=== PATIENT | female | born 1935 | race Caucasian/White ===

== ENCOUNTER 2016-07-13 16:26 | Emergency (ER) | payer MEDICARE, BC ==
[~2016-07-13] VITALS: Ht 152.4 cm; Wt 95.8 kg
[~2016-07-13 16:26] MED LIST: ACIP20TA19 PO; ADVA100A INH; ASPI325T PO; CALC600T34 PO; ESZO3 PO; GLUCCAP13 PO; HYOS1TAB10 PO; IPRA0.02 INH; IPRA18I INH; LEVA750T9 PO; LYSI500C2 PO; MMW SS; NYSTPOW30 XX; OMEGCAP2 PO; OXYC5 PO; PRAV40TA PO; PRED5SOL PO; PROT40TA PO; SERT-129 PO; TIMO0.5S4 OP; [UNRECOGNIZED DRUG - CODE] PO; [UNRECOGNIZED DRUG - OTHER]; [UNRECOGNIZED DRUG - OTHER] PO
[2016-07-13 16:37] VITALS: BP 143/98; PULSE 82; RESP 16; TEMP 98.5; O2SAT 94
[2016-07-13] MEDS ORDERED: TETANUS/DIPHTHERIA TOXOID ADULT 0.5 ML VIAL IM ONE (17:30)
[2016-07-13] MEDS ORDERED: VEDO1INJ IV (17:37)
[2016-07-13] MEDS ORDERED: PANT40TA3 PO (17:37)
[2016-07-13] MEDS ORDERED: TIMO0.2517 EACH EYE (17:38)
[2016-07-13] MEDS ORDERED: FOLI1TAB4 PO (17:38)
[2016-07-13] MEDS ORDERED: ESZO3TAB4 PO (17:38)
[2016-07-13] MEDS ORDERED: NYST15T TOPICAL (17:38)
[2016-07-13] MEDS ORDERED: SERT25TA83 PO (17:38)
[2016-07-13] MEDS ORDERED: HYDR-3533 PO (17:38)
[2016-07-13] MEDS ORDERED: HYOS0.37 PO (17:38)
[2016-07-13] MEDS ORDERED: LIVA1TAB PO (17:38)
[2016-07-13] MEDS ORDERED: TREX5TAB PO (17:38)
[2016-07-13] MEDS ORDERED: BUDE3CAP PO (17:38)
--- NOTE | 2016-07-13 17:43 | PD ---
HPI Chief Complaint: Cold / Flu Symptoms Time Seen by Provider: 17:38 Travel History International Travel<30 days: No Contact w/Intl Traveler<30days: No Traveled to known affect area: No History of Present Illness HPI 80-year-old female that presents to the ED for evaluation of trip and fall today at [facility]. Per patient she had trip and fall couple hours ago. Per patient she landed on her right knee and right elbow. Patient has a superficial skin avulsion to the right elbow which is slightly bleeding. She denies any her head and losing consciousness. She takes no blood thinners. She does have a history of Crohn's disease and thyroid takes clindamycin secondary to a 2 to correction. She also takes Lortab and ibuprofen for this tooth infection. She denies any chest pain or shortness of breath. No back pain or neck pain. No hip pain. Able to ambulate with some discomfort on the right knee. Patient does have abrasions and swelling of the right knee. Denies any numbness, tilling, weakness. Patient is not sure when her last tetanus shot was done. She has an allergy to rl, pravastatin and simvastatin. Pain at the moment is 7 out of 10. Mainly on the elbow and knee. She has not taken anything for this. She came here immediately after the injury. PFSH Past Medical History Arthritis: Yes (LEGS) Asthma: No Atrial Fibrillation: Yes (A-FLUTTER) Autoimmune Disease: Yes (Chron's disease) Blood Disorders: Yes (LEFT ARM BLOOD CLOT) Heart Rhythm Problems: Yes (A-FLUTTER) Cancer: No Cardiovascular Problems: Yes High Cholesterol: Yes Chest Pain: No Congestive Heart Failure: No COPD: Yes Cerebrovascular Accident: No Diabetes: No Diminished Hearing: No Endocrine: No Gastrointestinal Disorders: Yes (CROHNS DISEASE, IBS) GERD: Yes Glaucoma: Yes (BOTH EYES) Genitourinary: Yes (RIGHT RENAL CYST) Headaches: Yes Hepatitis: No Hiatal Hernia: No Hypertension: No Immune Disorder: No Implanted Vascular Access Dvce: Yes Kidney Stones: No Musculoskeletal: Yes Neurologic: Yes Psychiatric: No Reproductive: No Respiratory: Yes Immunizations Current: Yes Migraines: Yes Myocardial Infarction: No Renal Failure: No Seizures: No Sickle Cell Disease: No Sleep Apnea: Yes (CPAP AT BEDTIME) Thyroid Disease: No Ulcer: No Tetanus Vaccination: > 5 Years Influenza Vaccination: Yes ?: Not Past Surgical History Abdominal Surgery: Yes (APPENDECTOMY) Appendectomy: Yes Body Medical Devices: chronic pain Cardiac Surgery: No Cholecystectomy: No Ear Surgery: No Endocrine Surgery: No Eye Surgery: Yes (RIGHT CORNEAL TRANSPLANT X 3; CATARACT EXTRACTION RIGHT EYE WITH IOL) Genitourinary Surgery: No Gynecologic Surgery: Yes (HYSTERECTOMY) Hysterectomy: Yes Joint Replacement: No Neurologic Surgery: Yes (IMPLANTED NEURO STIMULATER) Oral Surgery: Yes (TONSILLECTOMY, WISDOM TEETH REMOVED ) Thoracic Surgery: No Other Surgery: Yes (LASER UVECOTOMY) Social History Alcohol Use: No Tobacco Use: No Substance Use: No Allergies-Medications (Allergen,Severity, Reaction): Coded Allergies: Rl (Verified Allergy, Severe, Swelling, 07/13/16) Pravastatin (Verified Allergy, Intermediate, flu like symtoms, 07/13/16) Simvastatin (Verified Allergy, Intermediate, flu like symtpoms, 07/13/16) Reported Meds & Prescriptions Reported Meds & Active Scripts Active Reported Nystatin Topical (Nystatin) 100,000 unit/gm Cream 1 Applic TOPICAL HS Lortab (Hydrocodone-Acetaminophen) 5-325 Mg Tab 1 Tab PO Q4H PRN Lunesta (Eszopiclone) 3 Mg Tab 3 Mg PO HS PRN Sertraline (Sertraline HCl) 25 Mg Tab 25 Mg PO DAILY Livalo (Pitavastatin) 1 Mg Tab 1 Mg PO DIRECTED Folate (Folic Acid) 1 Mg Tab 1 Mg PO DAILY Timolol Maleate (Timolol Maleate (Ophth)) 0.25 % Janet 1 Drop EACH EYE HS Budesonide DR (Budesonide) 3 Mg Capdr 9 Mg PO DAILY Hyoscyamine ER 12 HR (Hyoscyamine Sulfate) 0.375 Latosha 0.375 Mg PO BID Trexall (Methotrexate) 5 Mg Tab 3 Tab PO Q7D Pantoprazole (Pantoprazole Sodium) 40 Mg Tab 40 Mg PO DAILY Entyvio Inj (Vedolizumab Inj) 300 Mg Inj 300 Mg IV [id number] Review of Systems General / Constitutional: No: Fever, Chills, Weight Gain, Weight Loss, Other Eyes: No: Diploplia, Blurred Vision, Photophobia, Drainage, Redness, Foreign Body Sensation, Pain, Tearing, Blind Spots, Visual changes, Blindness, Other HENT: No: Headaches, Vertigo, Lightheadedness, Sore Throat, Rhinitis, Rhinorrhea, Congestion, Nosebleed, Neck Stiffness, Neck Pain, Masses, Gingival Bleeding, Dental Difficulties, Ear Discharge, Earache, Other Cardiovascular: No: Chest Pain or Discomfort, Palpitations, Irregular Rhythm, Tachycardia, Diaphoresis, Syncope, Dyspnea on exertion, Varicosities, Edema, Cyanosis, Varicosities, Phlebitis, Claudication, Other Respiratory: No: Cough, Shortness of Breath, Wheezing, Sneezing, Orthopnea, Hemoptysis, Stridor, Night Sweats, Pleuritic Pain, Other Gastrointestinal: No: Nausea, Vomiting, Diarrhea, Abdominal Pain, Hematemesis, Hematochezia, Constipation, Changes in Bowel Habits, Indigestion, Dysphagia, Loss of Appetite, Other Genitourinary: No: Urgency, Frequency, Dysuria, Nocturia, Hematuria, Decreased Urinary Output, Oliguria, Hesitancy, Dribbling, Incontinence, Pelvic Pain, Flank Pain, Dyspareunia, Discharge, Dysmenorrhea, Menorrhagia, Metorrhagia, Vaginal Bleeding, Other Musculoskeletal: Positive: Pain, No: Myalgias, Arthralgias, Limited ROM, Weakness, Cramping, Edema, Atrophy, Other Skin: Positive Lesions (skin avulsion), No Rash, No Itching, No Dryness, No Lumps, No Hives, No Change in Pigmentation, No Change in nails, No Alopecia, No Breast Lumps, No Breast Tenderness, No Breast Swelling, No Other Neurologic: No: Weakness, Dizziness, Syncope, Focal Abnormalities, Coordination Problem, Tremor, Ataxia, Headache, Change in Mentation, Slurred Speech, Paresthesia, Incontinence, Seizures, Sensory Disturbance, Other Psychiatric: No: Anxiety, Depression, Suicidal Ideations, Disorder of Thought, Mood Disorder, Substance Abuse, Homicidal Ideation, Other Endocrine: No: Heat Intolerance, Cold Intolerance, Polyuria, Polydipsia, Other Hematologic/Lymphatic: No: Easy Bruising, Lymph Node Enlargement, Other Physical Exam Narrative GENERAL: SKIN: Warm and dry. HEAD: Atraumatic. Normocephalic. EYES: Pupils equal and round. No scleral icterus. No injection or drainage. ENT: No nasal bleeding or discharge. Mucous membranes pink and moist. Tongue is midline. No uvula deviation. NECK: Trachea midline. No JVD. CARDIOVASCULAR: Regular rate and rhythm. No murmurs, S3, S4. RESPIRATORY: No accessory muscle use. Clear to auscultation. Breath sounds equal bilaterally. GASTROINTESTINAL: Abdomen soft, non-tender, nondistended. Hepatic and splenic margins not palpable. MUSCULOSKELETAL: Extremities without clubbing, cyanosis, or edema. No obvious deformities. Full range of motion of the upper and lower extremities bilaterally. Pupils pulses bilaterally. Patient does have pain with range of motion of the right elbow as well as the right knee. Pain with flexion. Pain reproducible with touch. Patient has abrasions to both joints. Patient does have a superficial skin avulsion about 5 cm in length on the right upper arm just above the elbow. Some bleeding noted. Tender to touch. Bruising noted in this area. 2+ pulses bilaterally. Neurovascular intact. NEUROLOGICAL: Awake and alert. No obvious cranial nerve deficits. Motor grossly within normal limits. Five out of 5 muscle strength in the arms and legs. Normal speech. PSYCHIATRIC: Appropriate mood and affect; insight and judgment normal. Data Data Last Documented VS Vital Signs Date Time Temp Pulse Resp B/P Pulse Ox O2 Delivery O2 Flow Rate FiO2 07/13/16 16:37 98.5 82 16 143/98 94 Orders Elbow, Complete (4 Vws) (07/13/16 17:23) Knee, Complete (4vws) (07/13/16 17:23) Ice/Cold Pack (07/13/16 17:23) Tetanus/Diphtheria Tox Adult (Tetanus/Di (07/13/16 17:30) Wound Care (07/13/16 17:31) Lidocaine 2% Jelly (Xylocaine 2% Jelly) (07/13/16 17:45) Ketorolac Inj (Toradol Inj) (07/13/16 17:45) Oxycodone-Acetamin 5-325 Mg (Percocet (07/13/16 17:45) MDM Medical Decision Making Medical Screen Exam Complete: Yes Emergency Medical Condition: Yes Medical Record Reviewed: Yes Interpretation(s) X-ray of the right elbow show no sign of bony injury. X-ray of the right knee show no sign of bony injury Differential Diagnosis Fracture versus sprain versus strain versus skin avulsion Narrative Course 80-year-old female that presents to the ED for evaluation of trip and fall today. Patient was properly examined and was found to have signs and symptoms consistent with appears to be skin avulsion possible bony injuries. X-rays were done. Wound care was done. Patient was given IM Toradol as well as Percocet. X-rays showed no sign of acute bony injury. Patient was reassured. Patient had wound care done by ED nurse with minimal pain. Patient alert procedure well. Patient will be sent home with prescription for Percocet to use for pain as needed. She was instructed that she's had take this medication did not take the Lortab. I recommend ice or warm compresses. Wound care. Get Steri-Strips removed in 1 week. Follow with PCP. See ED worsening symptoms. Diagnosis Primary Impression: Contusion of right elbow Qualified Code: S50.01XA - Contusion of right elbow, initial encounter Additional Impressions: Avulsion of skin of elbow Qualified Code: S51.001A - Avulsion of skin of elbow, right, initial encounter Contusion of knee, right Patient Instructions: General Instructions, Narcotic given in the ED Additional Instructions: Take medications as prescribed. Follow-up with PCP. See ED for any worsening symptoms. Do not drink or drive while taking pain medication. Do not take Lortab if you are taking Percocet. Take one or he other. Apply ice or heat as needed for pain Med/Other Pt SpecificInfo: Prescription(s) given Scripts Oxycodone-Acetaminophen (Percocet)5-325 mg Tab1 Tab PO Q6H PRN (PAIN) #12 TAB Ref 0 Prov:Stanton Davey MD 07/13/16 Disposition: 01 DISCHARGE HOME Condition: Stable Tip Solares Jul 13, 2016 17:43
[2016-07-13] MEDS ORDERED: KETOROLAC TROMETHAMINE 60 MG/2 ML (IM) VIAL IM ONE (17:45)
[2016-07-13] MEDS ORDERED: LIDOCAINE 2% JELLY 30 ML TUBE TOPICAL ONE (17:45)
[2016-07-13] MEDS ORDERED: oxyCODONE/ACETAMINOPHEN 5 MG/325 MG TAB PO ONE (17:45)
--- NOTE | 2016-07-13 19:17 | RADHPO ---
EXAM DATE/TIME: 07/13/2016 18:37 [facility] COMPARISON: No previous studies available for comparison. INDICATIONS : Fell, right knee pain MEDICAL HISTORY : None. SURGICAL HISTORY : None. ENCOUNTER: Initial ACUITY: 1 day PAIN SCORE: 8/10 LOCATION: Right Knee FINDINGS: Four view examination of the right knee demonstrates no evidence of fracture or dislocation. Bony mi neralization is normal. The articular surfaces are intact. The suprapatellar soft tissues have a no rmal configuration. CONCLUSION: Negative trauma study. Ariel Zamora MD on July 13, 2016 at 19:15 Board Certified Radiologist. This report was verified electronically.
--- NOTE | 2016-07-13 19:17 | RADHPO ---
EXAM DATE/TIME: 07/13/2016 18:46 [facility] COMPARISON: No previous studies available for comparison. INDICATIONS : Fell, right elbow pain MEDICAL HISTORY : None. SURGICAL HISTORY : None. ENCOUNTER: Initial ACUITY: 1 day PAIN SCORE: 8/10 LOCATION: Right elbow FINDINGS: Multiple view examination of the right elbow demonstrates soft tissue swelling. Old avulsion fracture s along the medial humeral condyle. No fracture or effusion. The osseous structures are in normal al ignment. Bony mineralization is normal. CONCLUSION: 1. Soft tissue swelling with old avulsion fractures. 2. No acute fracture. Christopher Gonzalez MD on July 13, 2016 at 19:14 Board Certified Radiologist. This report was verified electronically.
[2016-07-13] MEDS ORDERED: PERC5TAB12 PO (19:18)
== END 2016-07-13 19:39 | disposition home or self-care (01) ==
LOC: PHED 16:26 → PHEFT 19:39
DX: S50.01XA Contusion of right elbow, initial encounter (principal); S51.001A Unspecified open wound of right elbow, initial encounter; S80.01XA Contusion of right knee, initial encounter; S80.211A Abrasion, right knee, initial encounter; E07.9 Disorder of thyroid, unspecified; E78.00 Pure hypercholesterolemia, unspecified; G47.30 Sleep apnea, unspecified; W01.0XXA Fall on same level from slipping, tripping and stumbling without subsequent striking against object, initial encounter; Y92.512 Supermarket, store or market as the place of occurrence of the external cause; Z23 Encounter for immunization; Z87.19 Personal history of other diseases of the digestive system; Z87.39 Personal history of other diseases of the musculoskeletal system and connective tissue; Z86.79 Personal history of other diseases of the circulatory system; Z86.2 Personal history of diseases of the blood and blood-forming organs and certain disorders involving the immune mechanism; Z87.09 Personal history of other diseases of the respiratory system; Z86.69 Personal history of other diseases of the nervous system and sense organs
CPT/HCPCS: 73080; 73564; 90471; 90714; 96372; 99284; J1885

== ENCOUNTER 2017-09-07 14:18 | Emergency (ER) | payer BC, MEDICARE ==
[~2017-09-07] VITALS: Ht 152.4 cm; Wt 90.0 kg
[~2017-09-07 14:18] MED LIST changes: -ACIP20TA19 PO; -ADVA100A INH; -ASPI325T PO; +BUDE3CAP PO; -CALC600T34 PO; -ESZO3 PO; +ESZO3TAB4 PO; +FOLI1TAB4 PO; -GLUCCAP13 PO; +HYDR-3533 PO; +HYOS0.37 PO; -HYOS1TAB10 PO; -IPRA0.02 INH; -IPRA18I INH; -LEVA750T9 PO; +LIVA1TAB PO; -LYSI500C2 PO; -MMW SS; +NYST15T TOPICAL; -NYSTPOW30 XX; -OMEGCAP2 PO; -OXYC5 PO; +PANT40TA3 PO; +PERC5TAB12 PO; -PRAV40TA PO; -PRED5SOL PO; -PROT40TA PO; -SERT-129 PO; +SERT25TA83 PO; +TIMO0.2517 EACH EYE; -TIMO0.5S4 OP; +TREX5TAB PO; +VEDO1INJ IV; -[UNRECOGNIZED DRUG - CODE] PO; -[UNRECOGNIZED DRUG - OTHER]; -[UNRECOGNIZED DRUG - OTHER] PO
[2017-09-07 14:21] VITALS: BP 160/70; PULSE 72; RESP 16; TEMP 97.1; O2SAT 97
--- NOTE | 2017-09-07 15:23 | PD ---
HPI Chief Complaint: Dizziness Time Seen by Provider: 15:07 Travel History International Travel<30 days: No Contact w/Intl Traveler<30days: No Traveled to known affect area: No History of Present Illness HPI This 82-year-old female says she had a fall on August 13 it was caused by dizziness. She says she is feeling very dizzy and wobbly at times. She gets frequent episodes of dizziness. She says they happen 2 or 3 times a day. They last for 20-30 seconds. They seem to come when she gets up when she moves her head quickly. There is been no recent change in her medication. She had a fall on August 13 she did hit her head. She has no history of heart disease. She does have a history of anemia. In the past she did not respond to oral iron because she has celiac disease and had to get iron infusion. She has very poor vision PFSH Past Medical History Arthritis: Yes (LEGS) Asthma: No Atrial Fibrillation: Yes (A-FLUTTER) Autoimmune Disease: Yes (Chron's disease) Blood Disorders: Yes (LEFT ARM BLOOD CLOT) Heart Rhythm Problems: Yes (A-FLUTTER) Cancer: No Cardiovascular Problems: Yes High Cholesterol: Yes Chest Pain: No Congestive Heart Failure: No COPD: Yes Cerebrovascular Accident: No Diabetes: No Diminished Hearing: Yes (hard of hearing not hearing aides) Endocrine: No Gastrointestinal Disorders: Yes (CROHNS DISEASE, IBS) GERD: Yes Glaucoma: Yes (BOTH EYES) Genitourinary: Yes (RIGHT RENAL CYST) Headaches: Yes Hepatitis: No Hiatal Hernia: No Hypertension: No Immune Disorder: No Implanted Vascular Access Dvce: Yes Kidney Stones: No Musculoskeletal: Yes Neurologic: Yes Psychiatric: No Reproductive: No Respiratory: Yes Immunizations Current: Yes Migraines: Yes Myocardial Infarction: No Renal Failure: No Seizures: No Sickle Cell Disease: No Sleep Apnea: Yes (CPAP AT BEDTIME) Thyroid Disease: No Ulcer: No Tetanus Vaccination: < 5 Years Influenza Vaccination: Yes ?: Not Past Surgical History Abdominal Surgery: Yes (APPENDECTOMY) Appendectomy: Yes Body Medical Devices: chronic pain Cardiac Surgery: No Cholecystectomy: No Ear Surgery: No Endocrine Surgery: No Eye Surgery: Yes (RIGHT CORNEAL TRANSPLANT X 3; CATARACT EXTRACTION RIGHT EYE WITH IOL) Genitourinary Surgery: No Gynecologic Surgery: Yes (HYSTERECTOMY) Hysterectomy: Yes Joint Replacement: No Neurologic Surgery: Yes (IMPLANTED NEURO STIMULATER and then removed) Oral Surgery: Yes (TONSILLECTOMY, WISDOM TEETH REMOVED ) Thoracic Surgery: No Other Surgery: Yes (LASER UVECOTOMY) Social History Alcohol Use: No Tobacco Use: No (quit approx 35 yrs ago) Substance Use: No Allergies-Medications (Allergen,Severity, Reaction): Coded Allergies: drake (Unverified Allergy, Severe, Swelling, 09/07/17) pravastatin (Unverified Allergy, Intermediate, flu like symtoms, 09/07/17) simvastatin (Unverified Allergy, Intermediate, flu like symtpoms, 09/07/17) Reported Meds & Prescriptions Reported Meds & Active Scripts Active Percocet (Oxycodone-Acetaminophen) 5-325 mg Tab 1 Tab PO Q6H PRN Reported Probiotic (Saccharomyces Boulardii) 250 Mg Cap 250 Mg PO DAILY Nystatin Topical (Nystatin) 100,000 unit/gm Cream 1 Applic TOPICAL ONCE Magnesium Oxide 500 Mg Tab 500 Mg PO DAILY Vitamin D3 (Cholecalciferol) 2,000 Unit Cap 2,000 Units PO DAILY Calcium Carbonate 1,500 Mg Tab 1,200 Mg PO DAILY 1,500 mg calcium carbonate (600 mg elemental calcium) Potassium Gluconate 595 Mg (99 Mg) Tab 1 Tab PO DAILY Vitamin B-12 (Cyanocobalamin) 1,000 Mcg Tab 1,000 Mcg PO DAILY Lunesta (Eszopiclone) 2 Mg Tab 3 Mg PO HS PRN Folic Acid 0.8 Mg Cap 1,000 Mcg PO DAILY Nystatin Topical (Nystatin) 100,000 unit/gm Cream 1 Applic TOPICAL HS Sertraline (Sertraline HCl) 25 Mg Tab 25 Mg PO DAILY Livalo (Pitavastatin) 1 Mg Tab 1 Mg PO DIRECTED Timolol Maleate (Timolol Maleate (Ophth)) 0.25 % Janet 1 Drop EACH EYE HS Budesonide DR (Budesonide) 3 Mg Capdr 9 Mg PO DAILY Hyoscyamine ER 12 HR (Hyoscyamine Sulfate) 0.375 Latosha 0.375 Mg PO BID Trexall (Methotrexate) 5 Mg Tab 3 Tab PO Q7D Pantoprazole (Pantoprazole Sodium) 40 Mg Tab 40 Mg PO DAILY Entyvio Inj (Vedolizumab Inj) 300 Mg Inj 300 Mg IV [id number] Review of Systems General / Constitutional: No: Fever, Chills Eyes: No: Diploplia, Blurred Vision HENT: Positive: Vertigo, Lightheadedness, No: Headaches Cardiovascular: No: Chest Pain or Discomfort, Palpitations Respiratory: No: Cough, Shortness of Breath Gastrointestinal: No: Nausea, Vomiting Genitourinary: No: Urgency, Frequency Musculoskeletal: No: Myalgias, Arthralgias Skin: No Rash, No Itching Neurologic: Positive: Dizziness, No: Weakness Endocrine: No: Heat Intolerance Hematologic/Lymphatic: Positive: Easy Bruising Physical Exam Narrative GENERAL: Well-developed female SKIN: Focused skin assessment warm/dry. He has very thin skin with scattered bruises HEAD: Atraumatic. Normocephalic. EYES: Pupils equal and round. No scleral icterus. No injection or drainage. ENT: No nasal bleeding or discharge. Mucous membranes pink and moist. NECK: Trachea midline. No JVD. CARDIOVASCULAR: Regular rate and rhythm. No murmur appreciated. RESPIRATORY: No accessory muscle use. Clear to auscultation. Breath sounds equal bilaterally. GASTROINTESTINAL: Abdomen soft, non-tender, nondistended. Hepatic and splenic margins not palpable. MUSCULOSKELETAL: No obvious deformities. No clubbing. No cyanosis. No edema. NEUROLOGICAL: Awake and alert. No obvious cranial nerve deficits. Motor grossly within normal limits. Normal speech. PSYCHIATRIC: Appropriate mood and affect; insight and judgment normal. Data Data Last Documented VS Vital Signs Date Time Temp Pulse Resp B/P (MAP) Pulse Ox O2 Delivery O2 Flow Rate FiO2 09/07/17 16:44 70 16 125/65 (85) 96 Room Air 09/07/17 14:21 97.1 Orders Orders Complete Blood Count With Diff (09/07/17 15:21) Comprehensive Metabolic Panel (09/07/17 15:21) Ct Brain W/O Iv Contrast(Rout) (09/07/17 15:21) Electrocardiogram (09/07/17 15:23) Labs Laboratory Tests Test 09/07/17 15:40 White Blood Count 6.4 TH/MM3 Red Blood Count 4.92 MIL/MM3 Hemoglobin 14.2 GM/DL Hematocrit 44.2 % Mean Corpuscular Volume 89.8 FL Mean Corpuscular Hemoglobin 28.9 PG Mean Corpuscular Hemoglobin Concent 32.2 % Red Cell Distribution Width 17.5 % Platelet Count 207 TH/MM3 Mean Platelet Volume 7.8 FL Neutrophils (%) (Auto) 64.1 % Lymphocytes (%) (Auto) 20.8 % Monocytes (%) (Auto) 10.8 % Eosinophils (%) (Auto) 3.3 % Basophils (%) (Auto) 1.0 % Neutrophils # (Auto) 4.1 TH/MM3 Lymphocytes # (Auto) 1.3 TH/MM3 Monocytes # (Auto) 0.7 TH/MM3 Eosinophils # (Auto) 0.2 TH/MM3 Basophils # (Auto) 0.1 TH/MM3 CBC Comment DIFF FINAL Differential Comment Blood Urea Nitrogen 23 MG/DL Creatinine 1.00 MG/DL Random Glucose 106 MG/DL Total Protein 7.0 GM/DL Albumin 3.0 GM/DL Calcium Level 9.6 MG/DL Alkaline Phosphatase 51 U/L Aspartate Amino Transf (AST/SGOT) 19 U/L Alanine Aminotransferase (ALT/SGPT) 22 U/L Total Bilirubin 0.3 MG/DL Sodium Level 145 MEQ/L Potassium Level 3.8 MEQ/L Chloride Level 107 MEQ/L Carbon Dioxide Level 32.4 MEQ/L Anion Gap 6 MEQ/L Estimat Glomerular Filtration Rate 53 ML/MIN [facility] Medical Decision Making Medical Screen Exam Complete: Yes Emergency Medical Condition: Yes Medical Record Reviewed: Yes Differential Diagnosis Differential includes subdural hematoma, dizziness, vertigo Narrative Course CT brain is negative. Patient has a history of anemia so I did check a CBC and her hemoglobin today is 14. Electrolytes are normal. Etiology for her dizzy spells has not been found. She describes 2-3 episodes per day the last 20-30 seconds. These are most likely postural she is stable for discharge Diagnosis Primary Impression: Dizziness Disposition: 01 DISCHARGE HOME Condition: Stable Demetrio Verdugo MD September 07, 2017 15:23
[2017-09-07] MEDS ORDERED: VITA2000 PO (15:36)
[2017-09-07] MEDS ORDERED: FOLI1CAP7 PO (15:36)
[2017-09-07] MEDS ORDERED: POTA595T PO (15:36)
[2017-09-07] MEDS ORDERED: NYST15T TOPICAL (15:36)
[2017-09-07] MEDS ORDERED: VITA10002 PO (15:36)
[2017-09-07] MEDS ORDERED: ESZO2 PO (15:36)
[2017-09-07] MEDS ORDERED: MAGN500T2 PO (15:36)
[2017-09-07] MEDS ORDERED: CALC600T4 PO (15:36)
[2017-09-07] MEDS ORDERED: SACC1CAP3 PO (15:37)
[2017-09-07 15:54] LABS: AUTOMATED NEUTROPHIL # 4.1 TH/MM3 (1.8-7.7); BASOPHIL # 0.1 TH/MM3 (0-0.2); EOSINOPHIL # 0.2 TH/MM3 (0-0.4); EOSINOPHIL % 3.3 % (0.0-4.0); HEMATOCRIT 44.2 % (35.0-46.0); HEMOGLOBIN 14.2 GM/DL (11.6-15.3); LYMPH % 20.8 % (9.0-44.0); LYMPHOCYTE # 1.3 TH/MM3 (1.0-4.8); MEAN CELL VOLUME 89.8 FL (80.0-100.0); MEAN CORPUSCULAR HEMOGLOBIN 28.9 PG (27.0-34.0); MEAN CORPUSCULAR HGB CONC 32.2 % (32.0-36.0); MEAN PLATELET VOLUME 7.8 FL (7.0-11.0); MONO % 10.8 % (0.0-8.0); MONOCYTE # 0.7 TH/MM3 (0-0.9); NEUT % 64.1 % (16.0-70.0); PLATELET COUNT 207 TH/MM3 (150-450); RED BLOOD COUNT 4.92 MIL/MM3 (4.00-5.30); RED CELL DISTRIBUTION WIDTH 17.5 % (11.6-17.2); WHITE BLOOD COUNT 6.4 TH/MM3 (4.0-11.0)
[2017-09-07 16:10] LABS: CHLORIDE 107 MEQ/L (98-107); SODIUM (NA) 145 MEQ/L (136-145)
[2017-09-07 16:13] LABS: BICARBONATE 32.4 MEQ/L (21.0-32.0); BLOOD UREA NITROGEN 23 MG/DL (7-18); CALCIUM 9.6 MG/DL (8.5-10.1); GLUCOSE,RANDOM 106 MG/DL (74-106)
[2017-09-07 16:16] LABS: ALT (GPT) 22 U/L (10-53); AST (GOT) 19 U/L (15-37); GLOMERULAR FILTRATION RATE 53 ML/MIN (>89)
--- NOTE | 2017-09-07 16:17 | RADRPT ---
EXAM DATE/TIME: 09/07/2017 16:03 [facility] COMPARISON: No previous studies available for comparison. INDICATIONS : Dizziness. RADIATION DOSE: 57.84 CTDIvol (mGy) MEDICAL HISTORY : Chronic obstructive pulmonary disease. SURGICAL HISTORY : Tonsillectomy. Hysterectomy.Right corneal transplant. ENCOUNTER: Initial ACUITY: 2 weeks PAIN SCALE: 0/10 LOCATION: cranial TECHNIQUE: Multiple contiguous axial images were obtained of the head. Using automated exposure control and adj ustment of the mA and/or kV according to patient size, radiation dose was kept as low as reasonably a chievable to obtain optimal diagnostic quality images. DICOM format image data is available electro nically for review and comparison. FINDINGS: CEREBRUM: The ventricles are normal for age. No evidence of midline shift, mass lesion, hemorrhage or acute in farction. No extra-axial fluid collections are seen. POSTERIOR FOSSA: The cerebellum and brainstem are intact. The 4th ventricle is midline. The cerebellopontine angle i s unremarkable. EXTRACRANIAL: The visualized portion of the orbits is intact. SKULL: The calvaria is intact. No evidence of skull fracture. CONCLUSION: No acute intracranial abnormality is identified. Chico Peña MD on September 07, 2017 at 16:12 Board Certified Radiologist. This report was verified electronically.
[2017-09-07 16:18] LABS: TOTAL BILIRUBIN ADULT 0.3 MG/DL (0.2-1.0)
[2017-09-07 16:19] LABS: ALKALINE PHOSPHATASE 51 U/L (45-117)
[2017-09-07 16:44] VITALS: BP 125/65; PULSE 70; RESP 16; O2SAT 96
--- NOTE | 2017-09-08 09:52 | EKG ---
Date Performed: 09/07/2017 Time Performed: 15:31:13 PTAGE: 82 years EKG: Sinus rhythm LOW QRS VOLTAGE IN PRECORDIAL LEADS BORDERLINE ECG Compared to PREVIOUS TRACING , the patient is no longer tachycardic. PREVIOUS TRACIN07/02/2010 16. 44 DOCTOR: Sumaya Vitale Interpretating Date/Time 09/08/2017 09:51:22
== END 2017-09-07 17:23 | disposition home or self-care (01) ==
LOC: PHED 14:18
DX: R42 Dizziness and giddiness (principal); D64.9 Anemia, unspecified; K90.0 Celiac disease; I48.92 Unspecified atrial flutter; J44.9 Chronic obstructive pulmonary disease, unspecified; K21.9 Gastro-esophageal reflux disease without esophagitis; E78.00 Pure hypercholesterolemia, unspecified; H40.9 Unspecified glaucoma; Z87.19 Personal history of other diseases of the digestive system
CPT/HCPCS: 70450; 80053; 85025; 93005; 99285

== ENCOUNTER 2017-11-24 11:25 | Inpatient (IN) ==
[2017-11-24] MEDS ORDERED: Sod Chloride 0.9% Inj 1,000 ML IV.SIG ONE (11:34)
--- NOTE | 2017-11-24 11:40 | ED ---
HPI General Chief Complaint: Chest Pain Stated Complaint: Chest pain Time Seen by Provider: 11/24/17 11:29 History of Present Illness HPI narrative: The patient was seen and examined in the presence of the nurse. This patient complains of chest pain. She was eating at [employer] and she developed low sternal chest pain and heaviness. She came to the ER for evaluation. Her discomfort has resolved. No alleviating factors. Duration 15 minutes. Severity was moderate. No exacerbating factors. She denies history of cardiac disease. No syncope. Complete Quality Measures for STEMI Alert Patients Related Data Home Medications Medication Instructions Recorded Confirmed B12 1,000 units PO DAILY 11/24/17 11/24/17 budesonide 3 mg PO DAILY 11/24/17 11/24/17 calcium carbonate [Calcium 600] 1,200 mg PO DAILY 11/24/17 11/24/17 cholecalciferol (vitamin D3) 2,000 unit PO DAILY 11/24/17 11/24/17 [Vitamin D3] cranberry 500 mg PO DAILY 11/24/17 11/24/17 folic acid 1 mg PO DAILY 11/24/17 11/24/17 hydrocodone-acetaminophen 1 tab PO Q4-6H PRN 11/24/17 11/24/17 hyoscyamine sulfate 0.375 mg PO Q12H 11/24/17 11/24/17 lactobacillus combination no.4 3,000 mmu cells PO DAILY 11/24/17 11/24/17 [Probiotic] magnesium 500 mg PO DAILY 11/24/17 11/24/17 methotrexate sodium [Trexall] 5 mg PO QWEEK 11/24/17 11/24/17 mouthwash compounding base 227 11/24/17 [Mouthwash-OM] lm-df-xfrk-FA-Ca carb-vit K 1 tab PO DAILY 11/24/17 11/24/17 [Women's Multivitamin] nystatin 1 applic TOPICAL DAILY 11/24/17 11/24/17 pantoprazole 40 mg PO DAILY 11/24/17 11/24/17 pitavastatin calcium [Livalo] 1 mg PO DAILY 11/24/17 11/24/17 potassium gluconate 595 mg PO DAILY 11/24/17 11/24/17 sertraline 25 mg PO DAILY 11/24/17 11/24/17 timolol 1 drp OPHTHALMIC (EYE) BID 11/24/17 11/24/17 vedolizumab [Entyvio] 300 mg IV Q6W 11/24/17 11/24/17 vit C,H-Vn-nsqhm-lutein-zeaxan 1 tab PO DAILY 11/24/17 11/24/17 [PreserVision AREDS 2] Allergies Allergy/AdvReac Type Severity Reaction Status Date / Time drake Allergy Severe Swelling Verified 11/24/17 11:54 pravastatin Allergy Intermediate flu like Verified 11/24/17 11:54 symtoms simvastatin Allergy Intermediate flu like Verified 11/24/17 11:54 symtpoms azithromycin [From Zithromax] Allergy Anaphylaxis Verified 11/24/17 11:54 Review of Systems Except as stated in HPI: all other systems reviewed are negative [facility] Medical History Medical History Arthritis (Acute) Chronic pain (Acute) Colon spasm (Acute) Crohn disease (Acute) Depression (Acute) Dry mouth (Acute) GERD (gastroesophageal reflux disease) (Acute) Glaucoma (Acute) High cholesterol (Acute) History of hysterectomy (Acute) Macular degeneration (Acute) Osteopenia (Acute) Social History Social History Substance History: No History of Abuse Second Hand Smoke Exposure: No Smoking Status: Former smoker How Often Do You Have a Drink Containing Alcohol: Never Recent Travel in [facility] within the Last 8 Weeks: No Recent Out of Country Travel within the Last 8 Weeks: No Exam Narrative Exam Narrative: GENERAL: Well-nourished, well-developed patient in no apparent distress. SKIN: Focused skin assessment reveals no rash and nodules. Skin is Warm and dry. HEAD: Atraumatic. Normocephalic. EYES: Pupils equal and round. No scleral icterus. No injection or drainage. ENT: No nasal bleeding or discharge. Mucous membranes pink and moist. NECK: Trachea midline. No JVD. CARDIOVASCULAR: Regular rate and rhythm. No murmur appreciated. RESPIRATORY: No accessory muscle use. Clear to auscultation. Breath sounds equal bilaterally. GASTROINTESTINAL: Abdomen soft, non-tender, nondistended. Hepatic and splenic margins not palpable. MUSCULOSKELETAL: No obvious deformities. No clubbing. No cyanosis. No edema. There is some tenderness in the low chest wall and xiphoid process region. She says it is not the same pain that brought her here. NEUROLOGICAL: Awake and alert. No obvious cranial nerve deficits. Motor grossly within normal limits. Normal speech. PSYCHIATRIC: Appropriate mood and affect; insight and judgment seems a bit reduced consistent with some dementia. Course Initial Documented Vital Signs Temperature 97.9 F 11/24/17 11:29 Pulse Rate 110 H 11/24/17 11:29 Respiratory Rate 18 11/24/17 11:29 Blood Pressure 103/67 11/24/17 11:29 Pulse Oximetry 95 11/24/17 11:29 Last Documented Vital Signs Temperature 97.9 F 11/24/17 11:29 Pulse Rate 92 H 11/24/17 12:44 Respiratory Rate 16 11/24/17 12:44 Blood Pressure 125/67 11/24/17 12:44 Pulse Oximetry 99 11/24/17 12:44 Critical Care Time Critical Care Time: Yes Total Critical Care Time: 34 Attestation: Aggregate critical care time was 34 minutes. Time to perform other separately billable procedures was not included in the critical care time. My time did not include minutes spent treating any other patients simultaneously or on activities that did not directly contribute to the patient's treatment. The services I provided to this patient were to treat and/or prevent clinically significant deterioration that could result in: Myocardial damage, cardiopulmonary arrest, cardiac arrhythmia I provided critical care services requiring my management, as noted below: Chart data review, documentation time, medication orders and management, vital sign assessments/reviewing monitor data, ordering and reviewing lab tests, ordering and interpreting/reviewing x-rays and diagnostic studies, care of the patient and discussion of the patient with the admitting physicians. Medical Decision Making MDM Narrative Medical decision making narrative: IV placed and labs sent. I reviewed her EKG which shows a sinus rhythm but no ST elevation or ectopy. I reviewed her chest x-ray and gave her aspirin Gave her a liter of saline IV, she has borderline low blood pressure and mildly tachycardic No shortness of breath or pleuritic symptoms or clinical suspicion of PE Chest x-ray shows a large right-sided 6 cm mass. It is concerning for new lung cancer. She did smoke for 30 years although she quit 30 years ago. Troponin is elevated at 0.41. I do not have any priors to compare. Would expect troponin elevation from chest pain that started 15 minutes ago but this must be addressed. I reviewed with the hospitalist and the patient will be admitted to telemetry unit of the [facility] at hospitalist request. She has been given aspirin. Borderline low blood pressure makes me not want to give her beta- reina nitrate especially considering she is completely asymptomatic. Holding off on heparinizing as well. This lung mass may require surgical evaluation or lung biopsy. She may require heart catheterization. Hence she will be sent to the main hospital for admission. Calling this a non-STEMI. Her EKG does not show ST elevation. She has no pain at this time. Differential Diagnosis Differential Diagnosis: Differential diagnosis includes VT, angina, pericarditis , pleurisy, GERD, anxiety. Medical Records Medical records reviewed: Yes I reviewed the patient's medical records. Lab Data Result diagrams: 11/24/17 11:45 11/24/17 11:45 Lab Results 11/24/17 11/24/17 11/24/17 Range/Units 11:45 11:45 11:45 CBC w Diff Auto diff final WBC 8.9 (4.0-11.0) th/mm3 RBC 5.05 (4.00-5.30) mil/mm3 Hgb 14.6 (11.6-15.3) gm/dL Hct 46.3 H (35.0-46.0) % MCV 91.7 (80.0-100.0) fL MCH 28.9 (27.0-34.0) pg MCHC 31.5 L (32.0-36.0) % RDW 17.8 H (11.6-17.2) % Plt Count 213 (150-450) th/mm3 MPV 8.3 (7.0-11.0) fL Neut % (Auto) 75.1 H (16.0-70.0) % Lymph % (Auto) 14.3 (9.0-44.0) % Cataño % (Auto) 4.8 (0.0-8.0) % Eos % (Auto) 1.5 (0.0-4.0) % Baso % (Auto) 4.3 H (0.0-2.0) % Neut # (Auto) 6.7 (1.8-7.7) th/mm3 Lymph # (Auto) 1.3 (1.0-4.8) th/mm3 Cataño # (Auto) 0.4 (0.0-0.9) th/mm3 Eos # (Auto) 0.1 (0.0-0.4) th/mm3 Baso # (Auto) 0.4 H (0.0-0.2) th/mm3 WBC Differential . Differential Comment . PT 10.7 (9.8-11.6) sec INR 1.1 Ratio APTT 25.6 (24.3-30.1) sec Sodium (136-145) meq/L Potassium (3.5-5.1) meq/L Chloride (98-107) meq/L Carbon Dioxide (21.0-32.0) meq/L Anion Gap (5-15) meq/L BUN (7-18) mg/dL Creatinine (0.50-1.00) mg/dL Estimated GFR (>89) mL/min Random Glucose (74-106) mg/dL Calcium (8.5-10.1) mg/dL Total Bilirubin (0.2-1.0) mg/dL AST (15-37) U/L ALT (10-53) U/L Alkaline Phosphatase (45-117) U/L Total Creatine Kinase (26-192) U/L Troponin I (0.02-0.05) ng/mL Total Protein (6.4-8.2) g/dL Albumin (3.4-5.0) g/dL Lipase 243 (73-393) U/L 11/24/17 11/24/17 Range/Units 11:45 11:45 CBC w Diff WBC (4.0-11.0) th/mm3 RBC (4.00-5.30) mil/mm3 Hgb (11.6-15.3) gm/dL Hct (35.0-46.0) % MCV (80.0-100.0) fL MCH (27.0-34.0) pg MCHC (32.0-36.0) % RDW (11.6-17.2) % Plt Count (150-450) th/mm3 MPV (7.0-11.0) fL Neut % (Auto) (16.0-70.0) % Lymph % (Auto) (9.0-44.0) % Cata[place] % (Auto) (0.0-8.0) % Eos % (Auto) (0.0-4.0) % Baso % (Auto) (0.0-2.0) % Neut # (Auto) (1.8-7.7) th/mm3 Lymph # (Auto) (1.0-4.8) th/mm3 Cata[place] # (Auto) (0.0-0.9) th/mm3 Eos # (Auto) (0.0-0.4) th/mm3 Baso # (Auto) (0.0-0.2) th/mm3 WBC Differential Differential Comment PT (9.8-11.6) sec INR Ratio APTT (24.3-30.1) sec Sodium 144 (136-145) meq/L Potassium 4.0 (3.5-5.1) meq/L Chloride 107 (98-107) meq/L Carbon Dioxide 28.1 (21.0-32.0) meq/L Anion Gap 9 (5-15) meq/L BUN 18 (7-18) mg/dL Creatinine 1.20 H (0.50-1.00) mg/dL Estimated GFR 43 L (>89) mL/min Random Glucose 115 H (74-106) mg/dL Calcium 9.2 (8.5-10.1) mg/dL Total Bilirubin 0.4 (0.2-1.0) mg/dL AST 32 (15-37) U/L ALT 21 (10-53) U/L Alkaline Phosphatase 54 (45-117) U/L Total Creatine Kinase 76 (26-192) U/L Troponin I 0.41 H (0.02-0.05) ng/mL Total Protein 7.5 (6.4-8.2) g/dL Albumin 3.2 L (3.4-5.0) g/dL Lipase (73-393) U/L Imaging Data Radiologist's impression: Chest X-Ray 11/24/17 11:35 CONCLUSION: Findings are concerning for right upper lobe mass with right hilar adenopathy. CT chest with contrast recommended for further evaluation. Discharge Plan Discharge Disposition Patient Disposition: 30 Still Patient Discharge Condition Condition: Serious Discharge Details Diagnosis: Non-ST elevated myocardial infarction (non-STEMI), Lung mass Physicians Team ED Provider: Carlos Herrera Primary Care Provider: Josiah Will Rxs /Orders / Referrals /Forms Prescriptions: No Action B12 1,000 units PO DAILY RF: 0 hydrocodone-acetaminophen 5-325 mg Tablet 1 tab PO Q4-6H PRN (Reason: Chronic Pain) RF: 0 calcium carbonate [Calcium 600] 600 mg calcium (1,500 mg) Tablet 1,200 mg PO DAILY RF: 0 hyoscyamine sulfate 0.375 mg Tablet Extended Release 12 Hr 0.375 mg PO Q12H RF: 0 timolol 0.5 % Drops 1 drp OPHTHALMIC (EYE) BID RF: 0 pantoprazole 40 mg Tablet,Delayed Release (Dr/Ec) 40 mg PO DAILY RF: 0 nystatin 100,000 unit/gram Cream 1 applic TOPICAL DAILY RF: 0 methotrexate sodium [Trexall] 5 mg Tablet 5 mg PO QWEEK RF: 0 sertraline 25 mg Tablet 25 mg PO DAILY RF: 0 folic acid 1 mg Tablet 1 mg PO DAILY RF: 0 magnesium 250 mg Tablet 500 mg PO DAILY RF: 0 budesonide 3 mg Capsule,Delayed,Extend.Release 3 mg PO DAILY RF: 0 cranberry 500 mg Capsule 500 mg PO DAILY RF: 0 potassium gluconate 595 mg (99 mg) Tablet 595 mg PO DAILY RF: 0 cholecalciferol (vitamin D3) [Vitamin D3] 2,000 unit Capsule 2,000 unit PO DAILY RF: 0 pitavastatin calcium [Livalo] 1 mg Tablet 1 mg PO DAILY RF: 0 tk-jn-egzt-FA-Ca carb-vit K [Women's Multivitamin] 18 mg iron-400 mcg-500 mg Tablet 1 tab PO DAILY RF: 0 lactobacillus combination no.4 [Probiotic] 3 billion cell Capsule 3,000 mmu cells PO DAILY RF: 0 vit C,R-Lq-cnezi-lutein-zeaxan [PreserVision AREDS 2] 234-288-96-1 mg-unit-mg- mg Capsule 1 tab PO DAILY RF: 0 vedolizumab [Entyvio] 300 mg Recon Soln 300 mg IV Q6W RF: 0 mouthwash compounding base 227 [Mouthwash-OM] Mouthwash RF: 0 Discharge Instructions Patient Printed Instructions: Chest Pain (ED) Status ED Status: With Doctor
[2017-11-24 11:58] LABS: Baso # (Auto) 0.4 th/mm3 (0.0-0.2); Baso % (Auto) 4.3 % (0.0-2.0); Eos # (Auto) 0.1 th/mm3 (0.0-0.4); Eos % (Auto) 1.5 % (0.0-4.0); Hematocrit 46.3 % (35.0-46.0); Hemoglobin 14.6 gm/dL (11.6-15.3); Lymph # (Auto) 1.3 th/mm3 (1.0-4.8); Lymph % (Auto) 14.3 % (9.0-44.0); Mean Corpuscular HGB Conc 31.5 % (32.0-36.0); Mean Corpuscular Hemoglobin 28.9 pg (27.0-34.0); Mean Corpuscular Volume 91.7 fL (80.0-100.0); Mean Platelet Volume 8.3 fL (7.0-11.0); Mono # (Auto) 0.4 th/mm3 (0.0-0.9); Mono % (Auto) 4.8 % (0.0-8.0); Neut # (Auto) 6.7 th/mm3 (1.8-7.7); Neut % (Auto) 75.1 % (16.0-70.0); Platelet Count 213 th/mm3 (150-450); Red Blood Count 5.05 mil/mm3 (4.00-5.30); Red Cell Distribution Width 17.8 % (11.6-17.2); White Blood Count 8.9 th/mm3 (4.0-11.0)
--- NOTE | 2017-11-24 11:59 | XR ---
EXAM DATE: 11/24/2017 11:55 AM EDT AGE/SEX: 82 years / Female INDICATIONS: Chest pain. CLINICAL DATA: This is the patient's initial encounter. Patient reports that signs and symptoms have been present for 1 day and indicates a pain score of 2/10. MEDICAL/SURGICAL HISTORY: None. None. COMPARISON: [facility] [place], CHEST SINGLE AP, 07/02/2010. . FINDINGS: Left lung is clear. There is cardiomegaly and aortic calcification. Abnormal right hilum which appear s prominent in size, and there is a masslike 6.2 cm opacity overlying the right mid lung concerning f or malignancy. Further imaging with CT chest with contrast recommended. CONCLUSION: Findings are concerning for right upper lobe mass with right hilar adenopathy. CT chest with contrast recommended for further evaluation. Electronically signed by: Rafa Lagunas MD 11/24/2017 11:58 AM EDT
[2017-11-24 12:05] LABS: Chloride 107 meq/L (98-107); Sodium 144 meq/L (136-145)
[2017-11-24 12:08] LABS: Calcium 9.2 mg/dL (8.5-10.1)
[2017-11-24 12:09] LABS: Albumin 3.2 g/dL (3.4-5.0); Anion Gap 9 meq/L (5-15); Blood Urea Nitrogen 18 mg/dL (7-18); Carbon Dioxide 28.1 meq/L (21.0-32.0); Glucose,Random 115 mg/dL (74-106)
[2017-11-24 12:12] LABS: Alanine Aminotransferase 21 U/L (10-53); Aspartate Aminotransferase 32 U/L (15-37); Glomerular Filtration Rate 43 mL/min (>89)
[2017-11-24 12:13] LABS: Total Protein 7.5 g/dL (6.4-8.2)
[2017-11-24 12:14] LABS: Alkaline Phosphatase 54 U/L (45-117)
[2017-11-24 12:16] LABS: Troponin I 0.41 ng/mL (0.02-0.05)
[2017-11-24 12:31] LABS: Activated Partial Thrombo Time 25.6 sec (24.3-30.1); INR 1.1 Ratio; Prothrombin Time 10.7 sec (9.8-11.6)
--- NOTE | 2017-11-24 13:30 | P.HPIM ---
History of Present Illness Primary Care Physician: Josiah Will MD Chief Complaint: Chest pain History of Present Illness: Patient is a 82-year-old female with chronic dyspepsia who admits heartburn sensation overnight not amenable to her usual dose of Tums in antacids but eventually subsided. Today she was out to eat with her daughter and went to the bathroom and subsequently had severe chest pain which was left-sided and nonradiating described as pressure. It resolved spontaneously however the patient did come to the emergency room for further evaluation. She denies any further cardiac history and effect has been rather healthy given her history of Crohn's disease and celiac disease. She was found in the emergency room to have a troponin of 0.4 with an EKG on my review which shows peaked P waves. There is no ST segment changes or ischemic changes. X-ray on my review also shows a large right pulmonary mass with rather bulky lymph nodes. She has never had this diagnosed although she has per our records seen the hematology team for iron deficiency anemia. Patient notes no shortness of breath, no hemoptysis, she does admit nausea during this episode but symptoms have since resolved. Patient is recommended for admission due to findings as above. - Diagnosis (1) Crohn disease (2) Chest pain (3) Non-ST elevated myocardial infarction (non-STEMI) (4) Lung mass Inpatient Certification: I certify that the inpatient services were ordered in accordance with Medicare regulations governing the order. This includes certification that hospital inpatient services are reasonable and necessary and in the case of services not specified as inpatient-only under 42 CFR 419.22(n), that they are appropriately provided as inpatient services in accordance to with the 2-midnight benchmark under 43 CFR 412.3(e) Estimated Total Length of Stay (Days): 3 Plans for Post Hospital Care: Home Review of Systems All other systems reviewed negative except as stated in HPI PMFSH - History History Provided By: Patient - Medical History Medical History: Medical History (Last Reviewed 11/24/17 @ 13:26 by Lizy Duque MD) Arthritis Chronic pain Colon spasm Crohn disease Depression Dry mouth GERD (gastroesophageal reflux disease) Glaucoma High cholesterol History of hysterectomy Macular degeneration Osteopenia - Surgical History Surgical History: Surgical History (Last Updated 11/24/17 @ 13:27 by Lizy Duque MD) Corneal transplant status S/P STEFANIE (total abdominal hysterectomy) - Family History Family History: Family History (Last Updated 11/24/17 @ 13:27 by Lizy Duque MD) Other History of cancer of gall bladder Leukemia - Tobacco History Second Hand Smoke Exposure: No Tobacco Use In Past 30 Days: No Smoking Status: Former smoker - Alcohol History How Often Do You Have a Drink Containing Alcohol: Never - Substance Use History Substance History: No History of Abuse - Travel History Recent Travel in the [place] Within the Last 8 Weeks: No Recent Travel Out of the Country Within the Last 8 Weeks: No - Immunization History Tetanus Immunization: <5 Years Hx Influenza Vaccine This Season: No Medications and Allergies Active Medications: Active Medications Sodium Chloride (Ns Flush) 2 ml IV.FLUSH UNSCH PRN PRN Reason: FLUSH AFTER USING IV ACCESS Allergies Allergy/AdvReac Type Severity Reaction Status Date / Time drake Allergy Severe Swelling Verified 11/24/17 11:54 pravastatin Allergy Intermediate flu like Verified 11/24/17 11:54 symtoms simvastatin Allergy Intermediate flu like Verified 11/24/17 11:54 symtpoms azithromycin [From Zithromax] Allergy Anaphylaxis Verified 11/24/17 11:54 Home Medications Medication Instructions Recorded Confirmed Type B12 1,000 units PO DAILY 11/24/17 11/24/17 History budesonide 3 mg PO DAILY 11/24/17 11/24/17 History calcium carbonate [Calcium 600] 1,200 mg PO DAILY 11/24/17 11/24/17 History cholecalciferol (vitamin D3) 2,000 unit PO DAILY 11/24/17 11/24/17 History [Vitamin D3] cranberry 500 mg PO DAILY 11/24/17 11/24/17 History folic acid 1 mg PO DAILY 11/24/17 11/24/17 History hydrocodone-acetaminophen 1 tab PO Q4-6H PRN 11/24/17 11/24/17 History hyoscyamine sulfate 0.375 mg PO Q12H 11/24/17 11/24/17 History lactobacillus combination no.4 3,000 mmu cells PO DAILY 11/24/17 11/24/17 History [Probiotic] magnesium 500 mg PO DAILY 11/24/17 11/24/17 History methotrexate sodium [Trexall] 5 mg PO QWEEK 11/24/17 11/24/17 History mouthwash compounding base 227 11/24/17 History [Mouthwash-OM] rz-kg-kcdo-FA-Ca carb-vit K 1 tab PO DAILY 11/24/17 11/24/17 History [Women's Multivitamin] nystatin 1 applic TOPICAL DAILY 11/24/17 11/24/17 History pantoprazole 40 mg PO DAILY 11/24/17 11/24/17 History pitavastatin calcium [Livalo] 1 mg PO DAILY 11/24/17 11/24/17 History potassium gluconate 595 mg PO DAILY 11/24/17 11/24/17 History sertraline 25 mg PO DAILY 11/24/17 11/24/17 History timolol 1 drp OPHTHALMIC (EYE) BID 11/24/17 11/24/17 History vedolizumab [Entyvio] 300 mg IV Q6W 11/24/17 11/24/17 History vit C,T-Pi-vyosz-lutein-zeaxan 1 tab PO DAILY 11/24/17 11/24/17 History [PreserVision AREDS 2] Exam Vital signs: Vital Signs 11/24/17 11:29 11/24/17 12:06 11/24/17 12:15 Temperature 97.9 F Pulse Rate 110 H 110 H Respiratory Rate 18 Blood Pressure 103/67 Pulse Oximetry 95 95 91 L 11/24/17 12:17 11/24/17 12:44 Temperature Pulse Rate 92 H Respiratory Rate 16 Blood Pressure 125/67 Pulse Oximetry 99 99 Intake & Output 11/23/17 11/24/17 11/24/17 18:59 06:59 18:59 Intake Total 1000 / 1000 Balance 1000 / 1000 Weight 85 kg Intake: IV 1000 / 1000 NS Inj 1,000 ML @ Wide Open IV. 1000 / 1000 SIG BOLUS ONE Rx#:[id number] Narrative: GENERAL: Well-nourished, well-developed patient. SKIN: Warm and dry. HEAD: Normocephalic. EYES: No scleral icterus. No injection or drainage. NECK: Supple, trachea midline. No JVD or lymphadenopathy. CARDIOVASCULAR: Regular rate and rhythm without faint systolic murmurs, gallops , or rubs. RESPIRATORY: Breath sounds equal bilaterally. No accessory muscle use. Scattered wheezes with crackles in the base GASTROINTESTINAL: Abdomen soft, non-tender, nondistended. MUSCULOSKELETAL: No cyanosis, or edema. BACK: Nontender without obvious deformity. No CVA tenderness. NEUROLOGICAL: Awake and alert. Cranial nerves II through XII intact. Motor and sensory grossly within normal limits. Five out of 5 muscle strength in all muscle groups. Normal speech. Results - Labs CBC & Chem 7: 11/24/17 11:45 11/24/17 11:45 Labs: Short CBC 11/24/17 Range/Units 11:45 WBC 8.9 (4.0-11.0) th/mm3 Hgb 14.6 (11.6-15.3) gm/dL Hct 46.3 H (35.0-46.0) % Plt Count 213 (150-450) th/mm3 BMP 11/24/17 11:45 Sodium 144 Potassium 4.0 Chloride 107 Carbon Dioxide 28.1 BUN 18 Creatinine 1.20 H Calcium 9.2 Cardiac Enzymes 11/24/17 11/24/17 Range/Units 11:45 11:45 Total Creatine Kinase 76 (26-192) U/L Troponin I 0.41 H (0.02-0.05) ng/mL Liver Function 11/24/17 Range/Units 11:45 Total Bilirubin 0.4 (0.2-1.0) mg/dL AST 32 (15-37) U/L ALT 21 (10-53) U/L Alkaline Phosphatase 54 (45-117) U/L Albumin 3.2 L (3.4-5.0) g/dL - Imaging Impressions Chest X-Ray 11/24/17 11:35 CONCLUSION: Findings are concerning for right upper lobe mass with right hilar adenopathy. CT chest with contrast recommended for further evaluation. Caprini VTE Risk Assessment Caprini VTE Risk Assessment: Moderate/High Risk (score >= 2) Caprini Risk Assessment Model: Point Value = 1 Point Value = 2 Point Value = 3 Point Value = 5 Age 41-60 Minor surgery BMI > 25 kg/m2 Swollen legs Varicose veins or History of unexplained or recurrent spontaneous Oral contraceptives or hormone replacement Sepsis (< 1 month) Serious lung disease, including pneumonia (< 1 month) Abnormal pulmonary function Acute myocardial infarction Congestive heart failure (< 1 month) History of inflammatory bowel disease Medical patient at bed rest Age 61-74 Arthroscopic surgery Major open surgery (> 45 min) Laparoscopic surgery (> 45 min) Malignancy Confined to bed (> 72 hours) Immobilizing plaster cast Central venous access Age >= 75 History of VTE Family history of VTE Factor V Leiden Prothrombin [id number] Lupus anticoagulant Anticardiolipin antibodies Elevated serum homocysteine Heparin-induced thrombocytopenia Other congenital or acquired thrombophilia Stroke (< 1 month) Elective arthroplasty Hip, pelvis, or leg fracture Acute spinal cord injury (< 1 month) Prophylaxis Regimen: Total Risk Factor Score Risk Level Prophylaxis Regimen 0-1 Low Early ambulation 2 Moderate Order ONE of the following: *Sequential Compression Device (SCD) *Heparin 5000 units SQ BID 3-4 Higher Order ONE of the following medications: *Heparin 5000 units SQ TID *Enoxaparin/Lovenox 40 mg SQ daily (WT < 150 kg, CrCl > 30 mL/min) *Enoxaparin/Lovenox 30 mg SQ daily (WT < 150 kg, CrCl > 10-29 mL/min) *Enoxaparin/Lovenox 30 mg SQ BID (WT < 150 kg, CrCl > 30 mL/min) AND/OR *Sequential Compression Device (SCD) 5 or more Highest Order ONE of the following medications: *Heparin 5000 units SQ TID (Preferred with Epidurals) *Enoxaparin/Lovenox 40 mg SQ daily (WT < 150 kg, CrCl > 30 mL/min) *Enoxaparin/Lovenox 30 mg SQ daily (WT < 150 kg, CrCl > 10-29 mL/min) *Enoxaparin/Lovenox 30 mg SQ BID (WT < 150 kg, CrCl > 30 mL/min) AND *Sequential Compression Device (SCD) Assessment and Plan - Assessment (1) Crohn disease Code(s): K50.90 - Crohn's disease, unspecified, without complications Status: Acute Plan: Continue with outpatient follow-up with Dr. Gama Currently on immune modulation therapy Thank also with celiac disease and will continue gluten-free diet (2) Chest pain Code(s): R07.9 - Chest pain, unspecified Status: Acute Plan: Atypical but concerning due to elevated troponin of 0.4, will continue on telemetry, follow-up serial cardiac enzymes Echocardiogram Cardiology consult patient's pain is concerning given her large lung mass Follow-up CT of the chest rule out PE and continue workup of cardiac and pulmonary findings Morphine, oxygen, nitro, aspirin is indicated for pain Heparin drip for now (3) Non-ST elevated myocardial infarction (non-STEMI) Code(s): I21.4 - Non-ST elevation (NSTEMI) myocardial infarction Status: Acute Plan: Atypical symptoms, continue cardiac workup as much as possible in this frail elderly female with new lung mass findings (4) Lung mass Code(s): R91.8 - Other nonspecific abnormal finding of lung field Status: Acute Plan: New, patient with [id number] history of tobaccoism Duo nebs as needed Follow-up with hematology (patient has seen Dr. Beltre for iron deficiency anemia in the past)
--- NOTE | 2017-11-24 14:15 | CT ---
EXAM DATE: 11/24/2017 2:06 PM EDT AGE/SEX: 82 years / Female INDICATIONS: Abnormal chest x-ray. Right lung mass. CLINICAL DATA: This is the patient's initial encounter. Patient reports that signs and symptoms have been present for 1 day and indicates a pain score of 0/10. MEDICAL/SURGICAL HISTORY: Crohn's disease. Gastroesophageal reflux disease. Hypercholesterolemia. Hysterectomy. RADIATION DOSE: 20.08 CTDI (mGy) COMPARISON: [facility], CHEST 1V SINGLE AP, 11/24/2017. . TECHNIQUE: Multiple contiguous axial images were obtained through the chest during bolus infusion of 65 ml Omnipaque 350 (iohexol) nonionic water-soluble contrast as a single exam dose. Images were obtained in suspended respiration using multiple row detector helical technique. Using automated exp osure control and adjustment of the mA and/or kV according to patient size, radiation dose was kept a s low as reasonably achievable to obtain optimal diagnostic quality images. DICOM format image data is available electronically for review and comparison. FINDINGS: Lung: There is a large central right lung mass measuring approximately 6.7 x 4.2 x 6.1 cm with an ad jacent peripheral mass in the right upper lobe abutting the pleura measuring 4.7 x 5.0 cm. Intervenin g interstitial and groundglass opacities. Scattered groundglass opacities in the lower lobes bilatera lly. Pleura: Trace right-sided pleural effusion. Mediastinum: Right anterior tracheal and right paratracheal lymph nodes measuring 1.3 to 1.7 cm. Tra ce pericardial effusion. Osseous Structures: No abnormal focal lytic or blastic bony lesions. Soft Tissues: Soft tissues are unremarkable. No significant axillary adenopathy. Other: Visulaized upper abdomen is unremarkable. CONCLUSION: 1. Large central right lung mass measuring 6.7 x 4.2 x 6.1 cm with large adjacent satellite right up per lobe mass measuring 4.7 x 5.0 cm. Right anterior tracheal and right paratracheal adenopathy witho ut evidence for contralateral or distant thoracic metastatic disease. 2. Trace right pleural effusion. 3. Trace anterior pericardial effusion. Electronically signed by: Jon Hernandez MD 11/24/2017 2:13 PM EDT
[2017-11-24] MEDS: Heparin Drip 25,000 UNIT/250 ML BAG IV.CONT PRN (14:25)
[2017-11-24] MEDS: Famotidine 20 MG Tablet PO SCH ×2 (14:46→23:08)
[2017-11-24] MEDS: Sod Chloride 0.9% Inj 1,000 ML IV.CONT SCH (16:03)
--- NOTE | 2017-11-24 17:45 | P.CONCA ---
<Rianna Cronin N - Last Filed: 11/24/17 17:07> History of Present Illness Service: Cardiology Consult date: 11/24/17 Requesting Physician: Lizy Duque Reason for Consult: Chest pain Primary Care Provider: Josiah Will MD Family Provider: Josiah Will MD Chief Complaint: Chest pain History of Present Illness: This is a very pleasant 82-year-old female who presented to the [facility] emergency department with complaints of epigastric pain/chest pain. Today she was out to eat with her daughter. She went to the bathroom and on exiting she became very dizzy and had to sit down before she got back to her table. She says along with the dizziness she developed sharp substernal left chest pain that lasted approximately 20 minutes. She has a history of arthritis , chronic back pain, Crohn's disease, depression, gastroesophageal reflux disease, high cholesterol, macular degeneration and glaucoma. Patient also stated that she has had a stress test in the past unsure of how many years ago. Currently the patient denies any chest pain, palpitations, pressure, dizziness or shortness of breath. The chest pain is reproducible with palpation. Cardiac enzymes are slightly elevated 0.41 which warrants further investigation. Chest x-ray a large right pulmonary mass. Patient states that she has never had a mass in the lung and that this is new. Review of Systems General: Patient denies fevers, chills, and recent travel. HEENT: Patient denies headache, sore throat, difficulty swallowing. Cardiovascular: Patient denies chest pain, dizziness. Denies sensation of heart beating rapidly or irregularly. No syncope. Respiratory: Denies shortness of breath or inspirational chest discomfort. Denies coughing wheezing or hemoptysis. GI: Patient denies nausea, vomiting, diarrhea, abdominal pain, bloody stools. Musculoskeletal: Patient denies joint pain or edema. Denies calf pain or edema. Neurovascular: Patient denies numbness, tingling, weakness in extremities. Denies headache. Endocrine: Denies polyuria and polydipsia. Hematologic: Denies easy bruising. Skin: Denies rash or itching. PMFSH - History History Provided By: Patient - Medical History Medical History: Medical History (Last Reviewed 11/24/17 @ 13:26 by Lizy Duque MD) Arthritis Chronic pain Colon spasm Crohn disease Depression Dry mouth GERD (gastroesophageal reflux disease) Glaucoma High cholesterol History of hysterectomy Macular degeneration Osteopenia - Surgical History Surgical History: Surgical History (Last Updated 11/24/17 @ 13:27 by Lizy Duque MD) Corneal transplant status S/P STEFANIE (total abdominal hysterectomy) - Family History Family History: Family History (Last Updated 11/24/17 @ 13:27 by Lizy Duque MD) Other History of cancer of gall bladder Leukemia - Tobacco History Second Hand Smoke Exposure: No Tobacco Use In Past 30 Days: No Smoking Status: Former smoker - Alcohol History How Often Do You Have a Drink Containing Alcohol: Never - Substance Use History Substance History: No History of Abuse - Travel History Recent Travel in the [place] Within the Last 8 Weeks: No Recent Travel Out of the Country Within the Last 8 Weeks: No - Immunization History Tetanus Immunization: <5 Years Hx Influenza Vaccine This Season: No Medications and Allergies Allergies Allergy/AdvReac Type Severity Reaction Status Date / Time drake Allergy Severe Swelling Verified 11/24/17 11:54 pravastatin Allergy Intermediate flu like Verified 11/24/17 11:54 symtoms simvastatin Allergy Intermediate flu like Verified 11/24/17 11:54 symtpoms azithromycin [From Zithromax] Allergy Anaphylaxis Verified 11/24/17 11:54 Home Medications Medication Instructions Recorded Confirmed Type B12 1,000 units PO DAILY 11/24/17 11/24/17 History budesonide 3 mg PO DAILY 11/24/17 11/24/17 History calcium carbonate [Calcium 600] 1,200 mg PO DAILY 11/24/17 11/24/17 History cholecalciferol (vitamin D3) 2,000 unit PO DAILY 11/24/17 11/24/17 History [Vitamin D3] cranberry 500 mg PO DAILY 11/24/17 11/24/17 History folic acid 1 mg PO DAILY 11/24/17 11/24/17 History hydrocodone-acetaminophen 1 tab PO Q4-6H PRN 11/24/17 11/24/17 History hyoscyamine sulfate 0.375 mg PO Q12H 11/24/17 11/24/17 History lactobacillus combination no.4 3,000 mmu cells PO DAILY 11/24/17 11/24/17 History [Probiotic] magnesium 500 mg PO DAILY 11/24/17 11/24/17 History methotrexate sodium [Trexall] 5 mg PO QWEEK 11/24/17 11/24/17 History mouthwash compounding base 227 11/24/17 History [Mouthwash-OM] yj-li-rcir-FA-Ca carb-vit K 1 tab PO DAILY 11/24/17 11/24/17 History [Women's Multivitamin] nystatin 1 applic TOPICAL DAILY 11/24/17 11/24/17 History pantoprazole 40 mg PO DAILY 11/24/17 11/24/17 History pitavastatin calcium [Livalo] 1 mg PO DAILY 11/24/17 11/24/17 History potassium gluconate 595 mg PO DAILY 11/24/17 11/24/17 History sertraline 25 mg PO DAILY 11/24/17 11/24/17 History timolol 1 drp OPHTHALMIC (EYE) BID 11/24/17 11/24/17 History vedolizumab [Entyvio] 300 mg IV Q6W 11/24/17 11/24/17 History vit C,O-At-rarkq-lutein-zeaxan 1 tab PO DAILY 11/24/17 11/24/17 History [PreserVision AREDS 2] Active Medications: Active Medications Hydrocodone Bitart/Acetaminophen ([place] 5/325) 1 tab PO Q4H PRN PRN Reason: Chronic Pain Albuterol (Duoneb Neb (Sherry)) 1 ampul NEB Q6HR WHILE AWAKE NEB [facility] Aspirin (Aspirin) 325 mg PO DAILY [facility] Carvedilol (Coreg) 3.125 mg PO BID [facility] Last Admin: 11/24/17 14:46 Dose: 3.125 mg Cyanocobalamin (Vitamin B12) 1,000 mcg PO DAILY [facility] Famotidine (Pepcid) 20 mg PO BID [facility] Last Admin: 11/24/17 14:46 Dose: 20 mg Sodium Chloride (Ns Inj) 1,000 mls @ 100 mls/hr IV.CONT .Q10H [facility] Last Admin: 11/24/17 16:03 Dose: Not Given Heparin Sodium/Dextrose (Heparin/D5w 25,000 U/250 Ml) 25,000 unit in 250 mls @ 0 mls/hr IV.CONT TITRATE PRN; Protocol PRN Reason: Per Protocol Last Admin: 11/24/17 14:25 Dose: 1,000 units/hr, 10 mls/hr Nitroglycerin (Nitrostat Sl) 0.4 mg SL Q5M PRN PRN Reason: ANGINA Patient Own: ( Budesonide [ Budesonide] 3 Mg) 0 each PO DAILY SHERRY Patient Own: ( Pitavastatin Calcium [Livalo] 1 Mg) 0 each PO DAILY [facility] Sertraline HCl (Zoloft) 25 mg PO DAILY [facility] Sodium Chloride (Ns Flush) 2 ml IV.FLUSH BID SHERRY Sodium Chloride (Ns Flush) 2 ml IV.FLUSH PRN PRN PRN Reason: FLUSH AFTER USING IV ACCESS Exam Vital signs: Vital Signs 11/24/17 11:29 11/24/17 12:06 11/24/17 12:15 Temperature 97.9 F Pulse Rate 110 H 110 H Respiratory Rate 18 Blood Pressure 103/67 Pulse Oximetry 95 95 91 L 11/24/17 12:17 11/24/17 12:44 11/24/17 14:51 Temperature Pulse Rate 92 H 83 Respiratory Rate 16 16 Blood Pressure 125/67 135/67 Pulse Oximetry 99 99 99 11/24/17 16:00 11/24/17 16:54 Temperature 97.8 F Pulse Rate 78 87 Respiratory Rate 16 Blood Pressure 145/52 H Pulse Oximetry 98 Intake & Output 11/23/17 11/24/17 11/24/17 18:59 06:59 18:59 Intake Total 1000 / 1000 Balance 1000 / 1000 Weight 85 kg Intake: IV 1000 / 1000 NS Inj 1,000 ML @ Wide Open IV. 1000 / 1000 SIG BOLUS ONE Rx#:[id number] Narrative: GENERAL: This is a well-nourished, well-developed patient, in no apparent distress. Patient speaks in clear complete sentences. Patient is pleasant. HEENT: Head is atraumatic and normocephalic. Neck is supple without lymphadenopathy and trachea is midline. No JVD or carotid bruits. CARDIOVASCULAR: Regular rate and rhythm without murmurs, gallops, or rubs. CP with palpitations RESPIRATORY: Fine crackles noted bilateral lower lobes. Breath sounds equal bilaterally. No wheezes, or rhonchi. Chest wall is nontender. No use of accessory muscles. GASTROINTESTINAL: Abdomen is nontender, nondistended. Abdomen soft. No obvious pulsatile mass or bruit. No CVA tenderness. Strong femoral pulses bilaterally. Normal bowel sounds in all quadrants. MUSCULOSKELETAL: Patient is moving upper and lower extremities freely. No calf tenderness or edema, no Homans sign. Strong pulses in upper and lower extremities. NEUROLOGICAL: Patient is alert and oriented. Cranial nerves 2-12 are grossly intact. No focal deficits and speech is clear. SKIN: No rash and turgor is normal. Results 11/24/17 11:45 11/24/17 11:45 Cardiac Enzymes 11/24/17 Range/Units 11:45 AST 32 (15-37) U/L Troponin I 0.41 H (0.02-0.05) ng/mL Coagulation 11/24/17 Range/Units 11:45 PT 10.7 (9.8-11.6) sec APTT 25.6 (24.3-30.1) sec CBC 11/24/17 Range/Units 11:45 WBC 8.9 (4.0-11.0) th/mm3 RBC 5.05 (4.00-5.30) mil/mm3 Hgb 14.6 (11.6-15.3) gm/dL Hct 46.3 H (35.0-46.0) % Plt Count 213 (150-450) th/mm3 Neut # (Auto) 6.7 (1.8-7.7) th/mm3 Lymph # (Auto) 1.3 (1.0-4.8) th/mm3 Atlantic # (Auto) 0.4 (0.0-0.9) th/mm3 Eos # (Auto) 0.1 (0.0-0.4) th/mm3 Baso # (Auto) 0.4 H (0.0-0.2) th/mm3 Comprehensive Metabolic Panel 11/24/17 Range/Units 11:45 Sodium 144 (136-145) meq/L Potassium 4.0 (3.5-5.1) meq/L Chloride 107 (98-107) meq/L Carbon Dioxide 28.1 (21.0-32.0) meq/L BUN 18 (7-18) mg/dL Creatinine 1.20 H (0.50-1.00) mg/dL Calcium 9.2 (8.5-10.1) mg/dL AST 32 (15-37) U/L ALT 21 (10-53) U/L Alkaline Phosphatase 54 (45-117) U/L Total Protein 7.5 (6.4-8.2) g/dL Albumin 3.2 L (3.4-5.0) g/dL Intake and Output 11/24/17 11/24/17 11/24/17 06:59 14:59 22:59 Intake Total 1000 / 1000 Balance 1000 / 1000 Intake: IV 1000 / 1000 NS Inj 1,000 ML @ Wide Open IV. 1000 / 1000 SIG BOLUS ONE Rx#:[id number] Other: Weight 85 kg Patient Weight 11/25/17 06:59 Weight 85 kg EKG interpretations - EKG EKG results cardiology: WNL, sinus rhythm Assessment and Plan - Assessment (1) Non-ST elevated myocardial infarction (non-STEMI) Code(s): I21.4 - Non-ST elevation (NSTEMI) myocardial infarction Status: Acute (2) Lung mass Code(s): R91.8 - Other nonspecific abnormal finding of lung field Status: Acute (3) Crohn disease Code(s): K50.90 - Crohn's disease, unspecified, without complications Status: Acute (4) Chest pain Code(s): R07.9 - Chest pain, unspecified Status: Acute - Plan Patient currently resting comfortably in no acute distress. Patient currently taking Coreg and was placed on a heparin drip. Patient did have elevated cardiac enzyme troponin was 0.41, ordered troponin every 6 hours 3 along with an EKG in the morning. We will proceed and do a stress test to rule out ischemia, tomorrow along with a 2 echo to check left ventricular function. Patient made n.p.o. after midnight except for meds and no caffeine. We will consult her follow up rep Dr. Andrea Wolff to assess the lung mass. Will follow during hospitalization and adjust cardiac treatment plan as needed. Discussed treatment plan with patient and family members. The patient was seen and evaluated by Dr. Kinsey who participated in care, management and decision making. <Paige Kinsey - Last Filed: 11/24/17 17:56> History of Present Illness Primary Care Provider: Josiah Will MD Family Provider: Josiah Will MD [facility] - Medical History Medical History: Medical History (Last Reviewed 11/24/17 @ 13:26 by Lizy Duque MD) Arthritis Chronic pain Colon spasm Crohn disease Depression Dry mouth GERD (gastroesophageal reflux disease) Glaucoma High cholesterol History of hysterectomy Macular degeneration Osteopenia - Surgical History Surgical History: Surgical History (Last Updated 11/24/17 @ 13:27 by Lizy Duque MD) Corneal transplant status S/P STEFANIE (total abdominal hysterectomy) - Family History Family History: Family History (Last Updated 11/24/17 @ 13:27 by Lizy Duque MD) Other History of cancer of gall bladder Leukemia Medications and Allergies Active Medications: Active Medications Hydrocodone Bitart/Acetaminophen ([place] 5/325) 1 tab PO Q4H PRN PRN Reason: Chronic Pain Albuterol (Duoneb Neb (Sherry)) 1 ampul NEB Q6HR WHILE AWAKE NEB [facility] Aspirin (Aspirin) 325 mg PO DAILY [facility] Carvedilol (Coreg) 3.125 mg PO BID [facility] Last Admin: 11/24/17 14:46 Dose: 3.125 mg Cyanocobalamin (Vitamin B12) 1,000 mcg PO DAILY [facility] Famotidine (Pepcid) 20 mg PO BID [facility] Last Admin: 11/24/17 14:46 Dose: 20 mg Sodium Chloride (Ns Inj) 1,000 mls @ 100 mls/hr IV.CONT .Q10H [facility] Last Admin: 11/24/17 16:03 Dose: Not Given Heparin Sodium/Dextrose (Heparin/D5w 25,000 U/250 Ml) 25,000 unit in 250 mls @ 0 mls/hr IV.CONT TITRATE PRN; Protocol PRN Reason: Per Protocol Last Admin: 11/24/17 14:25 Dose: 1,000 units/hr, 10 mls/hr Nitroglycerin (Nitrostat Sl) 0.4 mg SL Q5M PRN PRN Reason: ANGINA Patient Own: ( Budesonide [ Budesonide] 3 Mg) 0 each PO DAILY [facility] Patient Own: ( Pitavastatin Calcium [Livalo] 1 Mg) 0 each PO DAILY [facility] Sertraline HCl (Zoloft) 25 mg PO DAILY [facility] Sodium Chloride (Ns Flush) 2 ml IV.FLUSH BID [facility] Sodium Chloride (Ns Flush) 2 ml IV.FLUSH PRN PRN PRN Reason: FLUSH AFTER USING IV ACCESS Exam Vital signs: Vital Signs 11/24/17 11:29 11/24/17 12:06 11/24/17 12:15 Temperature 97.9 F Pulse Rate 110 H 110 H Respiratory Rate 18 Blood Pressure 103/67 Pulse Oximetry 95 95 91 L 11/24/17 12:17 11/24/17 12:44 11/24/17 14:51 Temperature Pulse Rate 92 H 83 Respiratory Rate 16 16 Blood Pressure 125/67 135/67 Pulse Oximetry 99 99 99 11/24/17 16:00 11/24/17 16:54 11/24/17 17:00 Temperature 97.8 F Pulse Rate 78 87 80 Respiratory Rate 16 Blood Pressure 145/52 H Pulse Oximetry 98 Intake & Output 11/23/17 11/24/17 11/24/17 18:59 06:59 18:59 Intake Total 1000 / 1000 Balance 1000 / 1000 Weight 187 lb 6.287 oz Intake: IV 1000 / 1000 NS Inj 1,000 ML @ Wide Open IV. 1000 / 1000 SIG BOLUS ONE Rx#:[id number] Results 11/24/17 11:45 11/24/17 11:45 Cardiac Enzymes 11/24/17 Range/Units 11:45 AST 32 (15-37) U/L Troponin I 0.41 H (0.02-0.05) ng/mL Coagulation 11/24/17 Range/Units 11:45 PT 10.7 (9.8-11.6) sec APTT 25.6 (24.3-30.1) sec CBC 11/24/17 Range/Units 11:45 WBC 8.9 (4.0-11.0) th/mm3 RBC 5.05 (4.00-5.30) mil/mm3 Hgb 14.6 (11.6-15.3) gm/dL Hct 46.3 H (35.0-46.0) % Plt Count 213 (150-450) th/mm3 Neut # (Auto) 6.7 (1.8-7.7) th/mm3 Lymph # (Auto) 1.3 (1.0-4.8) th/mm3 [place] # (Auto) 0.4 (0.0-0.9) th/mm3 Eos # (Auto) 0.1 (0.0-0.4) th/mm3 Baso # (Auto) 0.4 H (0.0-0.2) th/mm3 Comprehensive Metabolic Panel 11/24/17 Range/Units 11:45 Sodium 144 (136-145) meq/L Potassium 4.0 (3.5-5.1) meq/L Chloride 107 (98-107) meq/L Carbon Dioxide 28.1 (21.0-32.0) meq/L BUN 18 (7-18) mg/dL Creatinine 1.20 H (0.50-1.00) mg/dL Calcium 9.2 (8.5-10.1) mg/dL AST 32 (15-37) U/L ALT 21 (10-53) U/L Alkaline Phosphatase 54 (45-117) U/L Total Protein 7.5 (6.4-8.2) g/dL Albumin 3.2 L (3.4-5.0) g/dL Intake and Output 11/24/17 11/24/17 11/24/17 06:59 14:59 22:59 Intake Total 1000 / 1000 Balance 1000 / 1000 Intake: IV 1000 / 1000 NS Inj 1,000 ML @ Wide Open IV. 1000 / 1000 SIG BOLUS ONE Rx#:[id number] Other: Weight 187 lb 6.287 oz Patient Weight 11/25/17 06:59 Weight 187 lb 6.287 oz Assessment and Plan - Assessment (1) Non-ST elevated myocardial infarction (non-STEMI) Code(s): I21.4 - Non-ST elevation (NSTEMI) myocardial infarction Status: Acute (2) Lung mass Code(s): R91.8 - Other nonspecific abnormal finding of lung field Status: Acute (3) Crohn disease Code(s): K50.90 - Crohn's disease, unspecified, without complications Status: Acute (4) Chest pain Code(s): R07.9 - Chest pain, unspecified Status: Acute - Attending Attestation Patient seen and examined. I reviewed and agree with the evaluation and plan as presented. Will obtain echo and adenosine stress test. Consult Dr. Wolff for lung mass evaluation.
--- NOTE | 2017-11-24 18:26 | ECG ---
Date Performed: 11/24/2017 Time Performed: 11:32:01 PTAGE: 82 years EKG: SINUS TACHYCARDIA LOW QRS VOLTAGE IN PRECORDIAL LEADS POSSIBLE ANTERIOR MYOCARDIAL INFARCTI ON ABNORMAL RHYTHM ECG INTERPRETATION BASED ON A DEFAULT AGE OF 40 YEARS PREVIOUS TRACING : 09/07/2017 15.31 Compared to prior tracing, Sinus rhythm is faster DOCTOR: Tanner Cantu Interpretating Date/Time 11/24/2017 18:25:43
[2017-11-24] MEDS: PITAVASTATIN PO SCH (23:09)
[2017-11-25 01:29] LABS: Hematocrit 37.9 % (35.0-46.0); Hemoglobin 12.4 gm/dL (11.6-15.3); Mean Corpuscular HGB Conc 32.6 % (32.0-36.0); Mean Corpuscular Hemoglobin 29.7 pg (27.0-34.0); Mean Corpuscular Volume 91.2 fL (80.0-100.0); Mean Platelet Volume 8.2 fL (7.0-11.0); Platelet Count 185 th/mm3 (150-450); Red Blood Count 4.16 mil/mm3 (4.00-5.30); Red Cell Distribution Width 17.9 % (11.6-17.2); White Blood Count 6.3 th/mm3 (4.0-11.0)
[2017-11-25] MEDS: Sod Chloride 0.9% Inj 1,000 ML IV.CONT SCH ×2 (04:54→14:19)
[2017-11-25] MEDS ORDERED: PITAVASTATIN CALCIUM 1 MG PO SCH (09:00)
[2017-11-25] MEDS ORDERED: BUDESONIDE 3 MG PO SCH (09:00)
[2017-11-25] MEDS: Sertraline 50 MG Tablet PO SCH (09:02)
[2017-11-25] MEDS: Aspirin 325 MG Tablet PO SCH (09:03)
[2017-11-25] MEDS: Famotidine 20 MG Tablet PO SCH ×2 (09:03→22:02)
[2017-11-25] MEDS: BUDESONIDE PO SCH (09:04)
--- NOTE | 2017-11-25 09:27 | P.PNCA ---
<HuntermylaRianna N - Last Filed: 11/25/17 09:19> Subjective Interval history: Patient denies any chest pain, pressure, palpitations, dizziness or shortness of breath. Patient states that she feels pretty good this morning. Physical Exam Vital signs: Vital Signs 11/24/17 11:29 11/24/17 12:06 11/24/17 12:15 Temperature 97.9 F Pulse Rate 110 H 110 H Respiratory Rate 18 Blood Pressure 103/67 Pulse Oximetry 95 95 91 L 11/24/17 12:17 11/24/17 12:44 11/24/17 14:51 Temperature Pulse Rate 92 H 83 Respiratory Rate 16 16 Blood Pressure 125/67 135/67 Pulse Oximetry 99 99 99 11/24/17 16:00 11/24/17 16:54 11/24/17 17:00 Temperature 97.8 F Pulse Rate 78 87 80 Respiratory Rate 16 Blood Pressure 145/52 H Pulse Oximetry 98 11/24/17 18:00 11/24/17 19:00 11/24/17 20:00 Temperature 97.9 F Pulse Rate 85 84 87 Respiratory Rate 16 Blood Pressure 141/96 H Pulse Oximetry 95 11/24/17 21:00 11/24/17 22:00 11/24/17 22:49 Temperature Pulse Rate 78 80 86 Respiratory Rate 18 Blood Pressure Pulse Oximetry 94 L 11/24/17 23:00 11/25/17 00:00 11/25/17 01:00 Temperature 97.8 F Pulse Rate 77 80 68 Respiratory Rate 16 Blood Pressure 159/70 H Pulse Oximetry 95 11/25/17 02:00 11/25/17 03:00 11/25/17 04:00 Temperature 98.1 F Pulse Rate 74 68 65 Respiratory Rate 16 Blood Pressure 125/59 L Pulse Oximetry 95 11/25/17 08:15 11/25/17 08:17 Temperature Pulse Rate 81 Respiratory Rate 16 Blood Pressure Pulse Oximetry 93 L Intake & Output 11/24/17 11/25/17 11/25/17 18:59 06:59 18:59 Intake Total 1360 / 1360 320 / 320 Output Total 400 / 400 300 / 300 Balance 960 / 960 20 / 20 Weight 85 kg 123 kg Intake: IV 1000 / 1000 NS Inj 1,000 ML @ Wide Open IV. 1000 / 1000 SIG BOLUS ONE Rx#:[id number] Oral 360 / 360 320 / 320 Output: Urine 400 / 400 300 / 300 Other: # Voids 1 # Bowel Movements 0 Narrative: GENERAL: This is a well-nourished, well-developed patient, in no apparent distress. Patient speaks in clear complete sentences. Patient is pleasant. HEENT: Head is atraumatic and normocephalic. Neck is supple without lymphadenopathy and trachea is midline. No JVD or carotid bruits. CARDIOVASCULAR: Regular rate and rhythm without murmurs, gallops, or rubs. RESPIRATORY: Clear to auscultation. Breath sounds equal bilaterally. No wheezes , rales, or rhonchi. Chest wall is nontender. No use of accessory muscles. GASTROINTESTINAL: Abdomen is nontender, nondistended. Abdomen soft. No obvious pulsatile mass or bruit. No CVA tenderness. Strong femoral pulses bilaterally. Normal bowel sounds in all quadrants. MUSCULOSKELETAL: Patient is moving upper and lower extremities freely. No calf tenderness or edema, no Homans sign. Strong pulses in upper and lower extremities. NEUROLOGICAL: Patient is alert and oriented. Cranial nerves 2-12 are grossly intact. No focal deficits and speech is clear. SKIN: No rash and turgor is normal. Assessment and Plan - Assessment (1) Non-ST elevated myocardial infarction (non-STEMI) Code(s): I21.4 - Non-ST elevation (NSTEMI) myocardial infarction Status: Acute (2) Lung mass Code(s): R91.8 - Other nonspecific abnormal finding of lung field Status: Acute (3) Crohn disease Code(s): K50.90 - Crohn's disease, unspecified, without complications Status: Acute (4) Chest pain Code(s): R07.9 - Chest pain, unspecified Status: Acute - Plan Patient currently resting comfortably in no acute distress. Patient's troponin level is not trending up, 0.41 down to 0.36. Patient has been n.p.o. since midnight for schedule 2D echo and adenosine stress test today. Patient did not have any questions concerning procedures today. Will follow during hospitalization and adjust cardiac treatment plan as needed. The patient was seen and evaluated by Dr. Kinsey who participated in care, management and decision making. <Paige Kinsey - Last Filed: 11/25/17 14:59> Physical Exam Vital signs: Vital Signs 11/24/17 16:00 11/24/17 16:54 11/24/17 17:00 Temperature 97.8 F Pulse Rate 78 87 80 Respiratory Rate 16 Blood Pressure 145/52 H Pulse Oximetry 98 11/24/17 18:00 11/24/17 19:00 11/24/17 20:00 Temperature 97.9 F Pulse Rate 85 84 87 Respiratory Rate 16 Blood Pressure 141/96 H Pulse Oximetry 95 11/24/17 21:00 11/24/17 22:00 11/24/17 22:49 Temperature Pulse Rate 78 80 86 Respiratory Rate 18 Blood Pressure Pulse Oximetry 94 L 11/24/17 23:00 11/25/17 00:00 11/25/17 01:00 Temperature 97.8 F Pulse Rate 77 80 68 Respiratory Rate 16 Blood Pressure 159/70 H Pulse Oximetry 95 11/25/17 02:00 11/25/17 03:00 11/25/17 04:00 Temperature 98.1 F Pulse Rate 74 68 65 Respiratory Rate 16 Blood Pressure 125/59 L Pulse Oximetry 95 11/25/17 07:00 11/25/17 08:15 11/25/17 08:17 Temperature 98.0 F Pulse Rate 78 81 Respiratory Rate 16 16 Blood Pressure 152/76 H Pulse Oximetry 95 93 L 11/25/17 13:06 Temperature Pulse Rate 83 Respiratory Rate 18 Blood Pressure Pulse Oximetry Intake & Output 11/24/17 11/25/17 11/25/17 18:59 06:59 18:59 Intake Total 1360 / 1360 320 / 320 Output Total 400 / 400 300 / 300 Balance 960 / 960 20 / 20 Weight 187 lb 6.287 oz 271 lb 2.697 oz Intake: IV 1000 / 1000 NS Inj 1,000 ML @ Wide Open IV. 1000 / 1000 SIG BOLUS ONE Rx#:[id number] Oral 360 / 360 320 / 320 Output: Urine 400 / 400 300 / 300 Other: # Voids 1 Date of Last Bowel Movement 11/25/17 # Bowel Movements 0 Assessment and Plan - Assessment (1) Non-ST elevated myocardial infarction (non-STEMI) Code(s): I21.4 - Non-ST elevation (NSTEMI) myocardial infarction Status: Acute (2) Lung mass Code(s): R91.8 - Other nonspecific abnormal finding of lung field Status: Acute (3) Crohn disease Code(s): K50.90 - Crohn's disease, unspecified, without complications Status: Acute (4) Chest pain Code(s): R07.9 - Chest pain, unspecified Status: Acute - Attending Attestation Patient seen and examined. I reviewed and agree with the evaluation and plan as presented. Echo and adenosine stress test today. Continue monitoring.
[2017-11-25] MEDS ORDERED: Regadenoson Inj 0.4 MG/5 ML Syringe IV.PUSH ONE (10:25)
[2017-11-25] MEDS ORDERED: Docusate Sodium 100 MG Capsule PO PRN (15:43)
[2017-11-25] MEDS ORDERED: Temazepam 15 MG Capsule PO PRN (15:43)
[2017-11-25] MEDS ORDERED: Aluminum/Magnesium/Simethacone Susp 30 ML UDC PO PRN (15:43)
[2017-11-25] MEDS ORDERED: Senna/Docusate Sodium 8.6/50 MG Tablet PO PRN (15:43)
[2017-11-25] MEDS ORDERED: Acetaminophen 325 MG Tablet PO PRN (15:43)
--- NOTE | 2017-11-25 15:45 | P.PNIM ---
Subjective Interval history: Patient is a 82-year-old female with chronic dyspepsia who admits heartburn sensation overnight not amenable to her usual dose of Tums in antacids but eventually subsided. Today she was out to eat with her daughter and went to the bathroom and subsequently had severe chest pain which was left-sided and nonradiating described as pressure. It resolved spontaneously however the patient did come to the emergency room for further evaluation. She denies any further cardiac history and effect has been rather healthy given her history of Crohn's disease and celiac disease. She was found in the emergency room to have a troponin of 0.4 with an EKG on my review which shows peaked P waves. There is no ST segment changes or ischemic changes. X-ray on my review also shows a large right pulmonary mass with rather bulky lymph nodes. She has never had this diagnosed although she has per our records seen the hematology team for iron deficiency anemia. Patient notes no shortness of breath, no hemoptysis, she does admit nausea during this episode but symptoms have since resolved. Patient is recommended for admission due to findings as above. 8-1 HAVING 2 DAY STRESS TEST PART ONE TODAY NO SOB, NO CHEST PAIN, NO PALPITATIONS DW RN AND PT WILL NEED OUTPT WORKUP FOR LUNG MASS ON THE RIGHT Physical Exam Vital signs: Vital Signs 11/24/17 16:00 11/24/17 16:54 11/24/17 17:00 Temperature 97.8 F Pulse Rate 78 87 80 Respiratory Rate 16 Blood Pressure 145/52 H Pulse Oximetry 98 11/24/17 18:00 11/24/17 19:00 11/24/17 20:00 Temperature 97.9 F Pulse Rate 85 84 87 Respiratory Rate 16 Blood Pressure 141/96 H Pulse Oximetry 95 11/24/17 21:00 11/24/17 22:00 11/24/17 22:49 Temperature Pulse Rate 78 80 86 Respiratory Rate 18 Blood Pressure Pulse Oximetry 94 L 11/24/17 23:00 11/25/17 00:00 11/25/17 01:00 Temperature 97.8 F Pulse Rate 77 80 68 Respiratory Rate 16 Blood Pressure 159/70 H Pulse Oximetry 95 11/25/17 02:00 11/25/17 03:00 11/25/17 04:00 Temperature 98.1 F Pulse Rate 74 68 65 Respiratory Rate 16 Blood Pressure 125/59 L Pulse Oximetry 95 11/25/17 07:00 11/25/17 08:15 11/25/17 08:17 Temperature 98.0 F Pulse Rate 78 81 Respiratory Rate 16 16 Blood Pressure 152/76 H Pulse Oximetry 95 93 L 11/25/17 13:06 Temperature Pulse Rate 83 Respiratory Rate 18 Blood Pressure Pulse Oximetry Intake & Output 11/24/17 11/25/17 11/25/17 18:59 06:59 18:59 Intake Total 1360 / 1360 320 / 320 Output Total 400 / 400 300 / 300 Balance 960 / 960 20 / 20 Weight 85 kg 123 kg Intake: IV 1000 / 1000 NS Inj 1,000 ML @ Wide Open IV. 1000 / 1000 SIG BOLUS ONE Rx#:[id number] Oral 360 / 360 320 / 320 Output: Urine 400 / 400 300 / 300 Other: # Voids 1 Date of Last Bowel Movement 11/25/17 # Bowel Movements 0 Narrative: GENERAL: This is a well-nourished, well-developed patient, in no apparent distress. Patient speaks in clear complete sentences. Patient is pleasant. HEENT: Head is atraumatic and normocephalic. Neck is supple without lymphadenopathy and trachea is midline. No JVD or carotid bruits. CARDIOVASCULAR: Regular rate and rhythm without murmurs, gallops, or rubs. RESPIRATORY: Clear to auscultation. Breath sounds equal bilaterally. No wheezes , rales, or rhonchi. Chest wall is nontender. No use of accessory muscles. GASTROINTESTINAL: Abdomen is nontender, nondistended. Abdomen soft. No obvious pulsatile mass or bruit. No CVA tenderness. Strong femoral pulses bilaterally. Normal bowel sounds in all quadrants. MUSCULOSKELETAL: Patient is moving upper and lower extremities freely. No calf tenderness or edema, no Homans sign. Strong pulses in upper and lower extremities. NEUROLOGICAL: Patient is alert and oriented. Cranial nerves 2-12 are grossly intact. No focal deficits and speech is clear. SKIN: No rash and turgor is normal. Results - Labs CBC & Chem 7: 11/25/17 01:21 11/24/17 11:45 Laboratory Results - last 24 hr 11/24/17 11/24/17 11/25/17 19:58 19:58 01:21 WBC RBC Hgb Hct MCV MCH MCHC RDW Plt Count MPV APTT 36.2 H D Troponin I 0.41 H 0.36 H 11/25/17 11/25/17 11/25/17 01:21 06:02 13:05 WBC 6.3 RBC 4.16 Hgb 12.4 D Hct 37.9 MCV 91.2 MCH 29.7 MCHC 32.6 RDW 17.9 H Plt Count 185 MPV 8.2 APTT 50.4 H D 46.7 H Troponin I - Imaging Chest X-Ray 11/24/17 11:35 CONCLUSION: Findings are concerning for right upper lobe mass with right hilar adenopathy. CT chest with contrast recommended for further evaluation. Chest CT 11/24/17 13:15 CONCLUSION: 1. Large central right lung mass measuring 6.7 x 4.2 x 6.1 cm with large adjacent satellite right upper lobe mass measuring 4.7 x 5.0 cm. Right anterior tracheal and right paratracheal adenopathy without evidence for contralateral or distant thoracic metastatic disease. 2. Trace right pleural effusion. 3. Trace anterior pericardial effusion. - Procedures STRESS TEST Assessment and Plan - Assessment (1) Crohn disease Code(s): K50.90 - Crohn's disease, unspecified, without complications Status: Acute Plan: Continue with outpatient follow-up with Dr. RODRIGUEZ Currently on immune modulation therapy Thank also with celiac disease and will continue gluten-free diet (2) Chest pain Code(s): R07.9 - Chest pain, unspecified Status: Acute Plan: Atypical but concerning due to elevated troponin of 0.4, will continue on telemetry, follow-up serial cardiac enzymes Echocardiogram Cardiology consult patient's pain is concerning given her large lung mass Follow-up CT of the chest rule out PE and continue workup of cardiac and pulmonary findings Morphine, oxygen, nitro, aspirin is indicated for pain Heparin drip for now HAVING 2 DAY STRESS TEST PART ONE TODAY (3) Non-ST elevated myocardial infarction (non-STEMI) Code(s): I21.4 - Non-ST elevation (NSTEMI) myocardial infarction Status: Acute Plan: Atypical symptoms, continue cardiac workup as much as possible in this frail elderly female with new lung mass findings HAVING STRESS TEST TODAY AND TOMORROW (4) Lung mass Code(s): R91.8 - Other nonspecific abnormal finding of lung field Status: Acute Plan: New, patient with [id number] history of tobaccoism Duo nebs as needed Follow-up with hematology (patient has seen Dr. HYDE for iron deficiency anemia in the past) - Plan DVT AND GI PROPHYLAXIS Code Status: FULL CODE Discussed Condition With: RN AND PT AND CM Discharge Planning: WILL NEED OUTPT FOLLOW UP WITH ONCOLOGY
--- NOTE | 2017-11-25 17:06 | ECG ---
Date Performed: 11/25/2017 Time Performed: 05:56:58 PTAGE: 82 years EKG: Sinus rhythm Possible anterior infarct - age undetermined Low QRS voltages in precordial leads Abnormal ECG PREVIOUS TRACING : 11/24/2017 11.32 Compared to previous tracing, no longer tachycardic DOCTOR: Sumaya Vitale Interpretating Date/Time 11/25/2017 17:04:47
--- NOTE | 2017-11-25 17:17 | ECHRPT ---
Indication: CHEST PAIN CONCLUSIONS Normal left ventricular size. Mild concentric left ventricular hypertrophy. The left ventricular systolic function is low normal with an estimated ejection fraction in the rang e of 50- 55%. Trace mitral valve regurgitation. There is trace tricuspid valve regurgitation. The estimated pulmonary arterial pressure is 31 mmHg. BP: / HR: Rhythm: Sinus MEASUREMENTS (Male / Female) Normal Values Technical Quality:Fair 2D ECHO LV Diastolic Diameter PLAX 3.4 cm 4.2 - 5.9 / 3.9 - 5.3 cm LV Systolic Diameter PLAX 2.9 cm IVS Diastolic Thickness 1.2 cm 0.6 - 1.0 / 0.6 - 0.9 cm LVPW Diastolic Thickness 1.2 cm 0.6 - 1.0 / 0.6 - 0.9 cm LV Relative Wall Thickness 0.7 RV Internal Dim ED PLAX 1.9 cm LVOT Diameter 1.7 cm Aortic Root Diameter 2.6 cm LA Systolic Diameter LX 1.6 cm 3.0 - 4.0 / 2.7 - 3.8 cm M-MODE AV Cusp Separation MM 1.3 cm DOPPLER AV Peak Velocity 143.0 cm/s AV Peak Gradient 8.2 mmHg AV Mean Gradient 5.0 mmHg AV Velocity Time Integral 25.4 cm LVOT Peak Velocity 58.7 cm/s LVOT Peak Gradient 1.4 mmHg LVOT Velocity Time Integral 9.8 cm AV Area Cont Eq vti 0.9 cm AV Area Cont Eq pk 0.9 cm Mitral E Point Velocity 62.2 cm/s Mitral A Point Velocity 88.8 cm/s Mitral E to A Ratio 0.7 LV E' Lateral Velocity 4.7 cm/s Mitral E to LV E' Lateral Ratio 13.3 LV E' Septal Velocity 4.4 cm/s Mitral E to LV E' Septal Ratio 14.2 TR Peak Velocity 227.0 cm/s TR Peak Gradient 20.6 mmHg Right Atrial Pressure 10.0 mmHg Pulmonary Artery Systolic Pressu 30.6 mmHg Right Ventricular Systolic Press 30.6 mmHg PV Peak Velocity 62.4 cm/s PV Peak Gradient 1.6 mmHg FINDINGS LEFT VENTRICLE Normal left ventricular size. Mild concentric left ventricular hypertrophy. The left ventricular systolic function is low normal with an estimated ejection fraction in the rang e of 50- 55%. RIGHT VENTRICLE Normal right ventricular size and systolic function. LEFT ATRIUM The left atrial size is normal. RIGHT ATRIUM The right atrial size is normal. ATRIAL SEPTUM No atrial level shunt is demonstrated by color flow Doppler interrogation. AORTA The aortic root and proximal ascending aorta are normal in size on limited imaging. MITRAL VALVE Trace mitral valve regurgitation. AORTIC VALVE Trileaflet aortic valve. No aortic valve stenosis or regurgitation. TRICUSPID VALVE There is trace tricuspid valve regurgitation. The estimated pulmonary arterial pressure is 30.6 mmHg. PULMONARY VALVE The pulmonary valve is not well visualized. VESSELS The inferior vena cava is normal in size. PERICARDIUM A prominent epicardial fat pad is present. Paige Kinsey MD, FACC (Electronically Signed) Final Date:25 November 2017 17:16
--- NOTE | 2017-11-25 18:02 | MB ---
cc: Marcella Wolff MD DATE: 11/25/2017 HISTORY OF PRESENT ILLNESS: Ms. Dodson's an 82-year-old white female, prior smoker of up to 4 packs of cigarettes a day for 30-40 years, although she did quit at about 48 years of age. No other significant prior pulmonary history that she admits to. She presented to the hospital on 11/24/2017 with anterior chest pain and is suspected of having a non-STEMI. She is currently on a heparin infusion. Dr. Paige Kinsey is seeing her and testing is in progress. As part of her initial evaluation, she had a chest x-ray, which revealed an abnormal right hilum and a right upper lobe mass. Subsequently, a CT scan was done, which reveals a 7 cm right upper lobe mass abutting the pleura with extension toward the mediastinum with mediastinal adenopathy, no significant effusion. This is the first the patient has heard of this and we were able to uncover a chest film that she had about 5 years ago, which did not reveal anything like this. She has had a cough, nonproductive. No purulent sputum or hemoptysis. She is not short of breath. PAST MEDICAL HISTORY: Arthritis, Crohn's disease, depression, reflux disease, glaucoma, prior hysterectomy, macular degeneration, and several corneal transplants. FAMILY HISTORY: Positive for cancer. Father had cancer of the gallbladder. Mother had leukemia. SOCIAL HISTORY: , living with her who is a patient of mine, has emphysema. Smoking as noted. Not using alcohol. REVIEW OF SYSTEMS: No sudden weight loss. No loss of appetite. Chest pain as noted above that is being evaluated. No chronic edema. PHYSICAL EXAMINATION: GENERAL: Obese white female, very comfortable at rest. Chest pain has subsided. VITAL SIGNS: Afebrile, respirations 16-18, pulse 80, blood pressure 150/76, room air saturation 93-95%. HEENT: Sclerae anicteric. NECK: No adenopathy palpable in the neck or supraclavicular region. CHEST: Somewhat diminished, but entirely clear. No wheezes, congestion or rhonchi. CARDIAC: Regular rate and rhythm. No harsh murmur. ABDOMEN: Obese, but soft. EXTREMITIES: No peripheral edema or calf tenderness. LABORATORY DATA: White count is 6300, hemoglobin 12.4, platelet count is normal. APTT is 50. BUN 18, creatinine 1.2. DISCUSSION: Ms. Dodson presented with chest pain, probably due to cardiac ischemia. 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 She was a former heavy smoker. At present, I explained to she and her family the priority is evaluating and treating her heart. This lung finding was completely unsuspected and at present is asymptomatic. She will need a percutaneous biopsy of this lesion, but obviously will have to be off anticoagulation for that. They understand the significance of this, the fact that it is probably malignant and will need to be diagnosed and treated, but again, the priority at present is this cardiovascular evaluation and once anticoagulation can be held and her cardiac status is stable, we will proceed with a percutaneous biopsy. Further diagnostic and/or therapeutic intervention will depend on the results of her biopsy and ongoing clinical course. R. MD BETTE Moreno/ROGELIO , 05:43 PM , 05:51 PM
[2017-11-25] MEDS: PITAVASTATIN PO SCH (22:02)
[2017-11-26 05:56] LABS: Baso # (Auto) 0.1 th/mm3 (0.0-0.2); Baso % (Auto) 1.2 % (0.0-2.0); Eos # (Auto) 0.2 th/mm3 (0.0-0.4); Eos % (Auto) 3.6 % (0.0-4.0); Hematocrit 39.7 % (35.0-46.0); Lymph # (Auto) 1.2 th/mm3 (1.0-4.8); Lymph % (Auto) 21.9 % (9.0-44.0); Mean Corpuscular HGB Conc 32.7 % (32.0-36.0); Mean Corpuscular Hemoglobin 29.4 pg (27.0-34.0); Mean Platelet Volume 8.5 fL (7.0-11.0); Mono # (Auto) 0.2 th/mm3 (0.0-0.9); Mono % (Auto) 2.8 % (0.0-8.0); Neut # (Auto) 3.8 th/mm3 (1.8-7.7); Neut % (Auto) 70.5 % (16.0-70.0); Platelet Count 193 th/mm3 (150-450); Red Blood Count 4.41 mil/mm3 (4.00-5.30); Red Cell Distribution Width 18.4 % (11.6-17.2); White Blood Count 5.4 th/mm3 (4.0-11.0)
[2017-11-26 06:16] LABS: Albumin 2.6 g/dL (3.4-5.0); Anion Gap 6 meq/L (5-15); Aspartate Aminotransferase 45 U/L (15-37); Blood Urea Nitrogen 12 mg/dL (7-18); Calcium 8.5 mg/dL (8.5-10.1); Carbon Dioxide 28.6 meq/L (21.0-32.0); Chloride 110 meq/L (98-107); Glomerular Filtration Rate 65 mL/min (>89); Glucose,Random 91 mg/dL (74-106); Magnesium 2.3 mg/dL (1.5-2.5); Potassium 3.9 meq/L (3.5-5.1); Sodium 145 meq/L (136-145)
[2017-11-26 06:26] LABS: Alanine Aminotransferase 30 U/L (10-53); Alkaline Phosphatase 45 U/L (45-117); Free T4 (Free Thyroxine) 0.97 ng/dL (0.76-1.46); Phosphorus 3.3 mg/dL (2.5-4.9); Total Protein 6.2 g/dL (6.4-8.2)
[2017-11-26] MEDS: Famotidine 20 MG Tablet PO SCH (08:41)
[2017-11-26] MEDS: Sertraline 50 MG Tablet PO SCH (08:41)
[2017-11-26] MEDS: Aspirin 325 MG Tablet PO SCH (08:41)
[2017-11-26] MEDS: BUDESONIDE PO SCH (08:42)
--- NOTE | 2017-11-26 10:02 | P.PNCA ---
<Rianna Cronin N - Last Filed: 11/26/17 09:53> Subjective Interval history: General: Patient denies fevers, chills, and recent travel. HEENT: Patient denies headache, sore throat, difficulty swallowing. Cardiovascular: Patient denies chest pain, dizziness. Denies sensation of heart beating rapidly or irregularly. No syncope. Respiratory: Denies shortness of breath or inspirational chest discomfort. Denies coughing wheezing or hemoptysis. GI: Patient denies nausea, vomiting, diarrhea, abdominal pain, bloody stools. Musculoskeletal: Patient denies joint pain or edema. Denies calf pain or edema. Neurovascular: Patient denies numbness, tingling, weakness in extremities. Denies headache. Endocrine: Denies polyuria and polydipsia. Hematologic: Denies easy bruising. Skin: Denies rash or itching. Physical Exam Vital signs: Vital Signs 11/25/17 10:00 11/25/17 13:06 11/25/17 14:00 Temperature Pulse Rate 78 83 78 Respiratory Rate 18 Blood Pressure Pulse Oximetry 11/25/17 15:00 11/25/17 16:00 11/25/17 17:00 Temperature 98.1 F Pulse Rate 80 90 86 Respiratory Rate 16 Blood Pressure 116/65 Pulse Oximetry 11/25/17 18:00 11/25/17 19:00 11/25/17 19:33 Temperature 97.7 F Pulse Rate 76 72 89 Respiratory Rate 20 16 Blood Pressure 118/43 L Pulse Oximetry 94 L 95 11/25/17 20:00 11/25/17 21:00 11/25/17 22:00 Temperature Pulse Rate 77 81 83 Respiratory Rate Blood Pressure Pulse Oximetry 11/25/17 23:00 11/26/17 00:00 11/26/17 01:00 Temperature 97.8 F Pulse Rate 83 80 95 H Respiratory Rate 18 Blood Pressure 118/64 Pulse Oximetry 94 L 11/26/17 02:00 11/26/17 03:00 11/26/17 04:00 Temperature 97.7 F Pulse Rate 86 84 76 Respiratory Rate 20 Blood Pressure 144/68 H Pulse Oximetry 95 11/26/17 05:00 11/26/17 06:00 11/26/17 07:27 Temperature Pulse Rate 82 80 72 Respiratory Rate 12 Blood Pressure Pulse Oximetry 93 L Intake & Output 11/25/17 11/26/17 11/26/17 18:59 06:59 18:59 Intake Total 800 / 800 Output Total 700 / 700 Balance 100 / 100 Weight 84.5 kg Intake: Oral 800 / 800 Output: Urine 700 / 700 Other: Date of Last Bowel Movement 11/25/17 11/25/17 Narrative: GENERAL: This is a well-nourished, well-developed patient, in no apparent distress. Patient speaks in clear complete sentences. Patient is pleasant. HEENT: Head is atraumatic and normocephalic. Neck is supple without lymphadenopathy and trachea is midline. No JVD or carotid bruits. CARDIOVASCULAR: Regular rate and rhythm without murmurs, gallops, or rubs. RESPIRATORY: Clear to auscultation. Breath sounds equal bilaterally. No wheezes , rales, or rhonchi. Chest wall is nontender. No use of accessory muscles. GASTROINTESTINAL: Abdomen is nontender, nondistended. Abdomen soft. No obvious pulsatile mass or bruit. No CVA tenderness. Strong femoral pulses bilaterally. Normal bowel sounds in all quadrants. MUSCULOSKELETAL: Patient is moving upper and lower extremities freely. No calf tenderness or edema, no Homans sign. Strong pulses in upper and lower extremities. NEUROLOGICAL: Patient is alert and oriented. Cranial nerves 2-12 are grossly intact. No focal deficits and speech is clear. SKIN: No rash and turgor is normal. Assessment and Plan - Assessment (1) Non-ST elevated myocardial infarction (non-STEMI) Code(s): I21.4 - Non-ST elevation (NSTEMI) myocardial infarction Status: Acute (2) Lung mass Code(s): R91.8 - Other nonspecific abnormal finding of lung field Status: Acute (3) Crohn disease Code(s): K50.90 - Crohn's disease, unspecified, without complications Status: Acute (4) Chest pain Code(s): R07.9 - Chest pain, unspecified Status: Acute - Plan Patient currently resting comfortably in no acute distress. Troponin levels are not trending. 2D echo shows preserved left ventricular function ejection fraction 50-55%, trace mitral valve regurgitation, trace tricuspid valve regurgitation. Stress test canceled. Continue with current cardiac treatment plan. Ok to discharge home from cardiac standpoint. Follow up in office post discharge. Will schedule stress test as an outpatient. The patient was seen and evaluated by Dr. Kinsey who participated in care, management and decision making. <Paige Kinsey - Last Filed: 11/26/17 13:46> Physical Exam Vital signs: Vital Signs 11/25/17 14:00 11/25/17 15:00 11/25/17 16:00 Temperature 98.1 F Pulse Rate 78 80 90 Respiratory Rate 16 Blood Pressure 116/65 Pulse Oximetry 11/25/17 17:00 11/25/17 18:00 11/25/17 19:00 Temperature 97.7 F Pulse Rate 86 76 72 Respiratory Rate 20 Blood Pressure 118/43 L Pulse Oximetry 94 L 11/25/17 19:33 11/25/17 20:00 11/25/17 21:00 Temperature Pulse Rate 89 77 81 Respiratory Rate 16 Blood Pressure Pulse Oximetry 95 11/25/17 22:00 11/25/17 23:00 11/26/17 00:00 Temperature 97.8 F Pulse Rate 83 83 80 Respiratory Rate 18 Blood Pressure 118/64 Pulse Oximetry 94 L 11/26/17 01:00 11/26/17 02:00 11/26/17 03:00 Temperature 97.7 F Pulse Rate 95 H 86 84 Respiratory Rate 20 Blood Pressure 144/68 H Pulse Oximetry 95 11/26/17 04:00 11/26/17 05:00 11/26/17 06:00 Temperature Pulse Rate 76 82 80 Respiratory Rate Blood Pressure Pulse Oximetry 11/26/17 07:00 11/26/17 07:27 11/26/17 07:45 Temperature 98.1 F Pulse Rate 79 72 79 Respiratory Rate 12 16 Blood Pressure 130/62 Pulse Oximetry 93 L 95 11/26/17 08:00 11/26/17 09:00 11/26/17 13:26 Temperature Pulse Rate 89 83 Respiratory Rate Blood Pressure Pulse Oximetry 97 11/26/17 13:27 Temperature Pulse Rate 78 Respiratory Rate 12 Blood Pressure Pulse Oximetry Intake & Output 11/25/17 11/26/17 11/26/17 18:59 06:59 18:59 Intake Total 800 / 800 250 / 250 Output Total 700 / 700 Balance 100 / 100 250 / 250 Weight 186 lb 4.65 oz Intake: IV 250 / 250 Heparin/D5W 25,000 U/250 mL 25, 250 / 250 000 unit In 250 ml @ Per Protocol IV.CONT TITRATE PRN Rx #:[id number] Oral 800 / 800 Output: Urine 700 / 700 Other: Date of Last Bowel Movement 11/25/17 11/25/17 11/25/17 Assessment and Plan - Assessment (1) Non-ST elevated myocardial infarction (non-STEMI) Code(s): I21.4 - Non-ST elevation (NSTEMI) myocardial infarction Status: Acute (2) Lung mass Code(s): R91.8 - Other nonspecific abnormal finding of lung field Status: Acute (3) Crohn disease Code(s): K50.90 - Crohn's disease, unspecified, without complications Status: Acute (4) Chest pain Code(s): R07.9 - Chest pain, unspecified Status: Acute - Attending Attestation Patient seen and examined. I reviewed and agree with the evaluation and plan as presented. Echo with preserved LV function. No recurrent symptoms. OK to discharge home. Will schedule for cardiology f/u in our office soon after discharge. Lung lesion biopsy planned as outpatient as well.
[2017-11-26] MEDS: Heparin Drip 25,000 UNIT/250 ML BAG IV.CONT PRN (10:07)
--- NOTE | 2017-11-26 10:27 | MB ---
cc: Jonah Gonzalez MD DATE: 11/25/2017 REASON FOR CONSULTATION: Consult requested by hospitalist for evaluation of lung mass. HISTORY OF PRESENT ILLNESS: Zaynab is an 82-year-old, very pleasant white female. I last saw her in March 2013 when she was discharged from care. She was referred to me in 2010 by her primary physician, Dr. Will, for iron deficiency anemia. The iron deficiency anemia, was due to celiac disease and Crohn's disease. She was given iron dextran infusion in August of 2010. Her anemia had resolved and she had an excellent response. She was observed for 2 years, and her anemia did not return. Therefore, I had discharged her from my care in March 2013. The patient now came in complaining of chest pain and shortness of breath to [facility]. The patient was transferred to [facility] for cardiac workup. She is undergoing cardiac workup right now. Because of the chest pain, she had a chest x-ray on admission, which came back abnormal. Subsequently, she had a dedicated CAT scan of the chest which showed right lung masses as well as right mediastinal lymphadenopathy. Dr. Vitaliy Wolff, experienced truck driver, was consulted. I have been asked to see her for further evaluation as well. REVIEW OF SYSTEMS: The patient at the present time does not have any chest pains or shortness of breath. Her daughter who is a registered nurse was present at the bedside. The patient used to smoke cigarettes a long time ago, quit 30 years ago, but she was a heavy smoker in the past. She denies any anorexia or weight loss. She denies any headaches or dizziness. She denies any bone pain. She does have chronic back pain due to the arthritis. The rest of the review of systems is negative. PAST MEDICAL HISTORY: History of iron deficiency anemia due to celiac disease and Crohn's disease status post iron infusion in August of 2010, degenerative arthritis, chronic back pain, celiac disease currently on a gluten-free diet, COPD, Crohn's disease, depression, diabetes mellitus, diverticulosis, gastroesophageal reflux disease, glaucoma, hemorrhoids, hypercholesterolemia. PAST SURGICAL HISTORY: Cataract, corneal transplant, upper endoscopy, partial hysterectomy, tonsillectomy. ALLERGIES: GORDO. MEDICATIONS: Please see EMR. FAMILY HISTORY: Father from metastatic gallbladder cancer. Mother from leukemia. She also had ovarian cancer. The patient has had 3 brothers, one from [place]; the other brother from bladder cancer. The patient does not have any sisters or any sons. She has 2 daughters and one of the daughters is a breast cancer survivor. The other daughter is a registered nurse who used to work at [employer], but now she is working in [place]. SOCIAL HISTORY: The patient used to smoke cigarettes, 3 packs a day for 40 years, quit 30 years ago. She does not drink alcohol. She is a homemaker. She used to live in [place] and moved to [place] several years ago. PHYSICAL EXAMINATION: GENERAL: A well-developed, well-nourished, elderly, white female in no apparent distress. VITAL SIGNS: Temperature 98.1, heart rate is 80, respiratory rate 16, blood pressure 116/65. HEAD, EYES, EARS, NOSE, AND THROAT: Pupils equal, round, reactive to light and accommodation, extraocular movements intact. Anicteric. No oral lesions noted. No thrush noted. NECK: Supple. No JVD. No masses noted. LUNGS: Clear. No wheezing, rhonchi, or rales. HEART: Regular rate and rhythm. No murmur heard. ABDOMEN: Soft and nontender. No hepatosplenomegaly. No abnormal bowel sounds. No guarding or rigidity noted. EXTREMITIES: No pedal edema. No cyanosis, no clubbing. NEUROLOGIC: Awake, alert, oriented x 3. Sensory and motor seem to be intact. SKIN: No bruises or petechiae noted. BREASTS: No masses noted. LYMPH NODES: No cervical, supraclavicular, or axillary lymphadenopathy noted. BACK: There is no spinal tenderness noted. NEUROLOGIC: Cranial nerves II-XII are exam ASSESSMENT: 1. Large central right lung mass measuring 6.7 cm with an adjacent peripheral mass in the right upper lobe abutting the pleura measuring 4.7 x 5 cm. There is right anterior tracheal and right paratracheal lymphadenopathy, maximum measuring between 1.3-1.7 cm. In the context of previous heavy cigarette smoking, this is most likely consistent with bronchogenic carcinoma until proven otherwise. 2. Chest pains, undergoing cardiac workup at the present time. PLAN: I have reviewed her available records and I had an extensive discussion with the patient and her daughter, who is a registered nurse, regarding the CT chest findings. She has a very large 6.7 x 4.2 x 6.1 cm right mid-lung mass with adjacent satellite right upper lobe mass measuring 4.7 x 5.0 cm. She also has right tracheal and paratracheal lymphadenopathy. She has at least stage III, bronchogenic carcinoma. Due to her cardiac event, my recommendation is workup for the lung mass as an outpatient. The patient will need a PET scan and MRI to stage her bronchogenic carcinoma. I will discuss with Dr. Vitaliy Wolff, experienced truck driver, whether he would recommend bronchoscopy to obtain tissue diagnosis or we can refer her to Interventional Radiologist for CT-guided core needle biopsy of the right upper lobe lung mass for tissue diagnosis. This was explained to the patient in detail. She acknowledges that. I advised the patient and the daughter that I would like to see her in the office next week Thursday for followup of the lung masses. We discussed that most likely she is not a surgical candidate given that she has mediastinal metastasis. Treatment would be combined concurrent radiation and chemotherapy if this is stage III. However, if the staging workup with MRI and PET scan shows that she has stage IV, then she will be treated with palliative chemotherapy or targeted therapy if her tumor has any forklift driver mutations. The patient certainly is overwhelmed with all this information. Her daughter, who is a registered nurse, was present and she was in tears to hear the news that probably we are dealing with lung cancer. Further recommendations based on the hospital stay. Thank you for asking my opinion. MD ZOLTAN Mercado/LUIS , 09:46 AM , 10:07 AM BENNIE
--- NOTE | 2017-11-26 15:46 | P.PNIM ---
Subjective Interval history: Patient is a 82-year-old female with chronic dyspepsia who admits heartburn sensation overnight not amenable to her usual dose of Tums in antacids but eventually subsided. Today she was out to eat with her daughter and went to the bathroom and subsequently had severe chest pain which was left-sided and nonradiating described as pressure. It resolved spontaneously however the patient did come to the emergency room for further evaluation. She denies any further cardiac history and effect has been rather healthy given her history of Crohn's disease and celiac disease. She was found in the emergency room to have a troponin of 0.4 with an EKG on my review which shows peaked P waves. There is no ST segment changes or ischemic changes. X-ray on my review also shows a large right pulmonary mass with rather bulky lymph nodes. She has never had this diagnosed although she has per our records seen the hematology team for iron deficiency anemia. Patient notes no shortness of breath, no hemoptysis, she does admit nausea during this episode but symptoms have since resolved. Patient is recommended for admission due to findings as above. 8-1 HAVING 2 DAY STRESS TEST PART ONE TODAY NO SOB, NO CHEST PAIN, NO PALPITATIONS DW RN AND PT WILL NEED OUTPT WORKUP FOR LUNG MASS ON THE RIGHT 8-2 F/U LUNG CANCER AND CHEST PAIN DW RN AND PT AND CM AND FAMILY SEEN BY CARDIO AND DR HYDE CAN DC TO HOME IF STRESS IS NEGATIVE Physical Exam Vital signs: Vital Signs 11/25/17 16:00 11/25/17 17:00 11/25/17 18:00 Temperature Pulse Rate 90 86 76 Respiratory Rate Blood Pressure Pulse Oximetry 11/25/17 19:00 11/25/17 19:33 11/25/17 20:00 Temperature 97.7 F Pulse Rate 72 89 77 Respiratory Rate 20 16 Blood Pressure 118/43 L Pulse Oximetry 94 L 95 11/25/17 21:00 11/25/17 22:00 11/25/17 23:00 Temperature 97.8 F Pulse Rate 81 83 83 Respiratory Rate 18 Blood Pressure 118/64 Pulse Oximetry 94 L 11/26/17 00:00 11/26/17 01:00 11/26/17 02:00 Temperature Pulse Rate 80 95 H 86 Respiratory Rate Blood Pressure Pulse Oximetry 11/26/17 03:00 11/26/17 04:00 11/26/17 05:00 Temperature 97.7 F Pulse Rate 84 76 82 Respiratory Rate 20 Blood Pressure 144/68 H Pulse Oximetry 95 11/26/17 06:00 11/26/17 07:00 11/26/17 07:27 Temperature Pulse Rate 80 79 72 Respiratory Rate 12 Blood Pressure Pulse Oximetry 93 L 11/26/17 07:45 11/26/17 08:00 11/26/17 09:00 Temperature 98.1 F Pulse Rate 79 89 83 Respiratory Rate 16 Blood Pressure 130/62 Pulse Oximetry 95 11/26/17 12:00 11/26/17 13:00 11/26/17 13:26 Temperature Pulse Rate 77 86 Respiratory Rate Blood Pressure Pulse Oximetry 97 11/26/17 13:27 11/26/17 14:00 11/26/17 15:19 Temperature 97.8 F Pulse Rate 78 78 84 Respiratory Rate 12 20 Blood Pressure 112/68 Pulse Oximetry 95 Intake & Output 11/25/17 11/26/17 11/26/17 18:59 06:59 18:59 Intake Total 800 / 800 250 / 250 Output Total 700 / 700 Balance 100 / 100 250 / 250 Weight 84.5 kg Intake: IV 250 / 250 Heparin/D5W 25,000 U/250 mL 25, 250 / 250 000 unit In 250 ml @ Per Protocol IV.CONT TITRATE PRN Rx #:[id number] Oral 800 / 800 Output: Urine 700 / 700 Other: Date of Last Bowel Movement 11/25/17 11/25/17 11/25/17 Narrative: GENERAL: This is a well-nourished, well-developed patient, in no apparent distress. Patient speaks in clear complete sentences. Patient is pleasant. HEENT: Head is atraumatic and normocephalic. Neck is supple without lymphadenopathy and trachea is midline. No JVD or carotid bruits. CARDIOVASCULAR: Regular rate and rhythm without murmurs, gallops, or rubs. RESPIRATORY: Clear to auscultation. Breath sounds equal bilaterally. No wheezes , rales, or rhonchi. Chest wall is nontender. No use of accessory muscles. GASTROINTESTINAL: Abdomen is nontender, nondistended. Abdomen soft. No obvious pulsatile mass or bruit. No CVA tenderness. Strong femoral pulses bilaterally. Normal bowel sounds in all quadrants. MUSCULOSKELETAL: Patient is moving upper and lower extremities freely. No calf tenderness or edema, no Homans sign. Strong pulses in upper and lower extremities. NEUROLOGICAL: Patient is alert and oriented. Cranial nerves 2-12 are grossly intact. No focal deficits and speech is clear. SKIN: No rash and turgor is normal. Results - Labs CBC & Chem 7: 11/26/17 05:01 11/26/17 05:01 Laboratory Results - last 24 hr 11/26/17 11/26/17 11/26/17 05:01 05:01 05:01 WBC 5.4 RBC 4.41 Hgb 13.0 Hct 39.7 MCV 90.0 MCH 29.4 MCHC 32.7 RDW 18.4 H Plt Count 193 MPV 8.5 Neut % (Auto) 70.5 H Lymph % (Auto) 21.9 Sebastian % (Auto) 2.8 Eos % (Auto) 3.6 Baso % (Auto) 1.2 Neut # (Auto) 3.8 Lymph # (Auto) 1.2 Sebastian # (Auto) 0.2 Eos # (Auto) 0.2 Baso # (Auto) 0.1 WBC Differential . Differential Comment Auto diff final APTT 51.1 H Sodium 145 Potassium 3.9 Chloride 110 H Carbon Dioxide 28.6 Anion Gap 6 BUN 12 Creatinine 0.83 Estimated GFR 65 L Random Glucose 91 Calcium 8.5 Phosphorus 3.3 Magnesium 2.3 Total Bilirubin 0.4 AST 45 H ALT 30 Alkaline Phosphatase 45 Total Protein 6.2 L D Albumin 2.6 L D TSH 1.530 Free T4 0.97 Microbiology 11/25/17 12:30 Stool Stool Occult Blood ([facility]) - Final Hemoccult negative - Imaging Chest X-Ray 11/24/17 11:35 CONCLUSION: Findings are concerning for right upper lobe mass with right hilar adenopathy. CT chest with contrast recommended for further evaluation. Chest CT 11/24/17 13:15 CONCLUSION: 1. Large central right lung mass measuring 6.7 x 4.2 x 6.1 cm with large adjacent satellite right upper lobe mass measuring 4.7 x 5.0 cm. Right anterior tracheal and right paratracheal adenopathy without evidence for contralateral or distant thoracic metastatic disease. 2. Trace right pleural effusion. 3. Trace anterior pericardial effusion. - Procedures STRESS TEST Assessment and Plan - Assessment (1) Crohn disease Code(s): K50.90 - Crohn's disease, unspecified, without complications Status: Acute Plan: Continue with outpatient follow-up with Dr. RODRIGUEZ Currently on immune modulation therapy Thank also with celiac disease and will continue gluten-free diet (2) Chest pain Code(s): R07.9 - Chest pain, unspecified Status: Acute Plan: Atypical but concerning due to elevated troponin of 0.4, will continue on telemetry, follow-up serial cardiac enzymes Echocardiogram Cardiology consult patient's pain is concerning given her large lung mass Follow-up CT of the chest rule out PE and continue workup of cardiac and pulmonary findings Morphine, oxygen, nitro, aspirin is indicated for pain Heparin drip for now HAVING 2 DAY STRESS TEST HAD PART 2 TODAY (3) Non-ST elevated myocardial infarction (non-STEMI) Code(s): I21.4 - Non-ST elevation (NSTEMI) myocardial infarction Status: Acute Plan: Atypical symptoms, continue cardiac workup as much as possible in this frail elderly female with new lung mass findings HAD STRESS TEST TODAY IF NEGATIVE DC TO HOME (4) Lung mass Code(s): R91.8 - Other nonspecific abnormal finding of lung field Status: Acute Plan: New, patient with [id number] history of tobaccoism Duo nebs as needed Follow-up with hematology (patient has seen Dr. HYDE for iron deficiency anemia in the past) TO SEE BARRETT ON THURSDAY - Plan DVT AND GI PROPHYLAXIS DC TO HOME IF STRESS TEST IS STABLE Code Status: FULL CODE Discussed Condition With: RN AND PT AND CM Discharge Planning: WILL NEED OUTPT FOLLOW UP WITH ONCOLOGY
--- NOTE | 2017-11-26 16:21 | NM ---
EXAM DATE: 11/26/2017 11:38 AM EDT AGE/SEX: 82 years / Female INDICATIONS:Angina. . Chest pain. CLINICAL DATA: This is the patient's initial encounter. Patient reports that signs and symptoms have been present for 1 day and indicates a pain score of 2/10. MEDICAL/SURGICAL HISTORY: Hypercholesterolemia. Crohn's disease. Hysterectomy. COMPARISON: No prior exams available for comparison. DOSE: 30.1 mCi Tc 99m Myoview at rest 31.2 mCi [id number] at stress 0.4 mg Lexiscan STRESS SYMPTOMS: None. EJECTION FRACTION: 63 % TECHNIQUE: The patient underwent pharmacologic stress with infusion of prescribed dose. Continuous ECG tracing was monitored during stress. Gated SPECT imaging was performed after stress and conventi onal SPECT imaging was performed at rest. The examination was performed on a SPECT/CT scanner, both attenuation and non-corrected datasets were reviewed. FINDINGS: Distribution: The maximum perfused segment at stress is in the anterior wall. Perfusion Study: The pattern of perfusion at stress is within normal limits. There is some mild d ecreased perfusion at the apex which remains fixed. Gated Study: There are intact wall motion and wall thickening without hypokinetic or dyskinetic segm ents. The ejection fraction is calculated at 63%. RISK CATEGORY: Low (<1% Annual Motality Rate) CONCLUSION: 1. No evidence to suggest ischemic myocardial changes. Electronically signed by: David Martínez MD 11/26/2017 4:20 PM EDT
[2017-11-26 16:26] LABS: Hemoglobin A1c 5.6 % (4.3-6.0)
--- NOTE | 2017-11-26 16:46 | P.DS ---
Date of admission: 11/24/17 12:52 Primary care physician: Josiah Will MD Attending physician on discharge: Luis Daniel Rios Anticipated date of discharge: 11/26/17 Brief History from admission: Patient is a 82-year-old female with chronic dyspepsia who admits heartburn sensation overnight not amenable to her usual dose of Tums in antacids but eventually subsided. Today she was out to eat with her daughter and went to the bathroom and subsequently had severe chest pain which was left-sided and nonradiating described as pressure. It resolved spontaneously however the patient did come to the emergency room for further evaluation. She denies any further cardiac history and effect has been rather healthy given her history of Crohn's disease and celiac disease. She was found in the emergency room to have a troponin of 0.4 with an EKG on my review which shows peaked P waves. There is no ST segment changes or ischemic changes. X-ray on my review also shows a large right pulmonary mass with rather bulky lymph nodes. She has never had this diagnosed although she has per our records seen the hematology team for iron deficiency anemia. Patient notes no shortness of breath, no hemoptysis, she does admit nausea during this episode but symptoms have since resolved. Patient is recommended for admission due to findings as above. DS: Diagnosis - Discharge Diagnosis (1) Crohn disease Status: Acute (2) Chest pain Status: Acute (3) Non-ST elevated myocardial infarction (non-STEMI) Status: Acute (4) Lung mass Status: Acute DS: Medications - Discharge Medications Prescriptions: aspirin 325 mg PO DAILY #30 tab carvedilol [Coreg] 3.125 mg PO BID #60 tab nitroglycerin [Nitrostat] 0.4 mg SUBLINGUAL Q5M PRN #100 tab PRN Reason: Angina DS: Summary Hospital Course: Patient is a 82-year-old female with chronic dyspepsia who admits heartburn sensation overnight not amenable to her usual dose of Tums in antacids but eventually subsided. Today she was out to eat with her daughter and went to the bathroom and subsequently had severe chest pain which was left-sided and nonradiating described as pressure. It resolved spontaneously however the patient did come to the emergency room for further evaluation. She denies any further cardiac history and effect has been rather healthy given her history of Crohn's disease and celiac disease. She was found in the emergency room to have a troponin of 0.4 with an EKG on my review which shows peaked P waves. There is no ST segment changes or ischemic changes. X-ray on my review also shows a large right pulmonary mass with rather bulky lymph nodes. She has never had this diagnosed although she has per our records seen the hematology team for iron deficiency anemia. Patient notes no shortness of breath, no hemoptysis, she does admit nausea during this episode but symptoms have since resolved. Patient is recommended for admission due to findings as above. 8-1 HAVING 2 DAY STRESS TEST PART ONE TODAY NO SOB, NO CHEST PAIN, NO PALPITATIONS DW RN AND PT WILL NEED OUTPT WORKUP FOR LUNG MASS ON THE RIGHT 8-2 F/U LUNG CANCER AND CHEST PAIN DW RN AND PT AND CM AND FAMILY SEEN BY CARDIO AND DR GONZALEZ CAN DC TO HOME IF STRESS IS NEGATIVE STRESS IS NEGATIVE DC TO HOME - Time Spent with Patient Total time spent providing and/or coordinating discharge services: Greater than 30 minutes Exam Vital signs: Vital Signs 11/25/17 17:00 11/25/17 18:00 11/25/17 19:00 Temperature 97.7 F Pulse Rate 86 76 72 Respiratory Rate 20 Blood Pressure 118/43 L Pulse Oximetry 94 L 11/25/17 19:33 11/25/17 20:00 11/25/17 21:00 Temperature Pulse Rate 89 77 81 Respiratory Rate 16 Blood Pressure Pulse Oximetry 95 11/25/17 22:00 11/25/17 23:00 11/26/17 00:00 Temperature 97.8 F Pulse Rate 83 83 80 Respiratory Rate 18 Blood Pressure 118/64 Pulse Oximetry 94 L 11/26/17 01:00 11/26/17 02:00 11/26/17 03:00 Temperature 97.7 F Pulse Rate 95 H 86 84 Respiratory Rate 20 Blood Pressure 144/68 H Pulse Oximetry 95 11/26/17 04:00 11/26/17 05:00 11/26/17 06:00 Temperature Pulse Rate 76 82 80 Respiratory Rate Blood Pressure Pulse Oximetry 11/26/17 07:00 11/26/17 07:27 11/26/17 07:45 Temperature 98.1 F Pulse Rate 79 72 79 Respiratory Rate 12 16 Blood Pressure 130/62 Pulse Oximetry 93 L 95 11/26/17 08:00 11/26/17 09:00 11/26/17 12:00 Temperature Pulse Rate 89 83 77 Respiratory Rate Blood Pressure Pulse Oximetry 11/26/17 13:00 11/26/17 13:26 11/26/17 13:27 Temperature Pulse Rate 86 78 Respiratory Rate 12 Blood Pressure Pulse Oximetry 97 11/26/17 14:00 11/26/17 15:19 Temperature 97.8 F Pulse Rate 78 84 Respiratory Rate 20 Blood Pressure 112/68 Pulse Oximetry 95 Intake & Output 11/25/17 11/26/17 11/26/17 18:59 06:59 18:59 Intake Total 800 / 800 250 / 250 Output Total 700 / 700 Balance 100 / 100 250 / 250 Weight 84.5 kg Intake: IV 250 / 250 Heparin/D5W 25,000 U/250 mL 25, 250 / 250 000 unit In 250 ml @ Per Protocol IV.CONT TITRATE PRN Rx #:[id number] Oral 800 / 800 Output: Urine 700 / 700 Other: Date of Last Bowel Movement 11/25/17 11/25/17 11/25/17 Narrative: GENERAL: This is a well-nourished, well-developed patient, in no apparent distress. Patient speaks in clear complete sentences. Patient is pleasant. HEENT: Head is atraumatic and normocephalic. Neck is supple without lymphadenopathy and trachea is midline. No JVD or carotid bruits. CARDIOVASCULAR: Regular rate and rhythm without murmurs, gallops, or rubs. RESPIRATORY: Clear to auscultation. Breath sounds equal bilaterally. No wheezes , rales, or rhonchi. Chest wall is nontender. No use of accessory muscles. GASTROINTESTINAL: Abdomen is nontender, nondistended. Abdomen soft. No obvious pulsatile mass or bruit. No CVA tenderness. Strong femoral pulses bilaterally. Normal bowel sounds in all quadrants. MUSCULOSKELETAL: Patient is moving upper and lower extremities freely. No calf tenderness or edema, no Homans sign. Strong pulses in upper and lower extremities. NEUROLOGICAL: Patient is alert and oriented. Cranial nerves 2-12 are grossly intact. No focal deficits and speech is clear. SKIN: No rash and turgor is normal. Results Procedures completed during hospitalization: STRESS TEST Completed studies during hospitalization: Laboratory Results CBC w Diff Auto diff final 11/24/17 11:45 WBC 5.4 th/mm3 (4.0-11.0) 11/26/17 05:01 RBC 4.41 mil/mm3 (4.00-5.30) 11/26/17 05:01 Hgb 13.0 gm/dL (11.6-15.3) 11/26/17 05:01 Hct 39.7 % (35.0-46.0) 11/26/17 05:01 MCV 90.0 fL (80.0-100.0) 11/26/17 05:01 MCH 29.4 pg (27.0-34.0) 11/26/17 05:01 MCHC 32.7 % (32.0-36.0) 11/26/17 05:01 RDW 18.4 % (11.6-17.2) H 11/26/17 05:01 Plt Count 193 th/mm3 (150-450) 11/26/17 05:01 MPV 8.5 fL (7.0-11.0) 11/26/17 05:01 Neut % (Auto) 70.5 % (16.0-70.0) H 11/26/17 05:01 Lymph % (Auto) 21.9 % (9.0-44.0) 11/26/17 05:01 [place] % (Auto) 2.8 % (0.0-8.0) 11/26/17 05:01 Eos % (Auto) 3.6 % (0.0-4.0) 11/26/17 05:01 Baso % (Auto) 1.2 % (0.0-2.0) 11/26/17 05:01 Neut # (Auto) 3.8 th/mm3 (1.8-7.7) 11/26/17 05:01 Lymph # (Auto) 1.2 th/mm3 (1.0-4.8) 11/26/17 05:01 [place] # (Auto) 0.2 th/mm3 (0.0-0.9) 11/26/17 05:01 Eos # (Auto) 0.2 th/mm3 (0.0-0.4) 11/26/17 05:01 Baso # (Auto) 0.1 th/mm3 (0.0-0.2) 11/26/17 05:01 WBC Differential . 11/26/17 05:01 Differential Comment Auto diff final 11/26/17 05:01 PT 10.7 sec (9.8-11.6) 11/24/17 11:45 INR 1.1 Ratio 11/24/17 11:45 APTT 51.1 sec (24.3-30.1) H 11/26/17 05:01 Sodium 145 meq/L (136-145) 11/26/17 05:01 Potassium 3.9 meq/L (3.5-5.1) 11/26/17 05:01 Chloride 110 meq/L (98-107) H 11/26/17 05:01 Carbon Dioxide 28.6 meq/L (21.0-32.0) 11/26/17 05:01 Anion Gap 6 meq/L (5-15) 11/26/17 05:01 BUN 12 mg/dL (7-18) 11/26/17 05:01 Creatinine 0.83 mg/dL (0.50-1.00) 11/26/17 05:01 Estimated GFR 65 mL/min (>89) L 11/26/17 05:01 Random Glucose 91 mg/dL (74-106) 11/26/17 05:01 Calcium 8.5 mg/dL (8.5-10.1) 11/26/17 05:01 Phosphorus 3.3 mg/dL (2.5-4.9) 11/26/17 05:01 Magnesium 2.3 mg/dL (1.5-2.5) 11/26/17 05:01 Total Bilirubin 0.4 mg/dL (0.2-1.0) 11/26/17 05:01 AST 45 U/L (15-37) H 11/26/17 05:01 ALT 30 U/L (10-53) 11/26/17 05:01 Alkaline Phosphatase 45 U/L (45-117) 11/26/17 05:01 Total Creatine Kinase 76 U/L (26-192) 11/24/17 11:45 Troponin I 0.36 ng/mL (0.02-0.05) H 11/25/17 01:21 Total Protein 6.2 g/dL (6.4-8.2) L D 11/26/17 05:01 Albumin 2.6 g/dL (3.4-5.0) L D 11/26/17 05:01 Lipase 243 U/L (73-393) 11/24/17 11:45 TSH 1.530 uIU/mL (0.358-3.740) 11/26/17 05:01 Free T4 0.97 ng/dL (0.76-1.46) 11/26/17 05:01 Impressions Chest X-Ray 11/24/17 11:35 CONCLUSION: Findings are concerning for right upper lobe mass with right hilar adenopathy. CT chest with contrast recommended for further evaluation. Chest CT 11/24/17 13:15 CONCLUSION: 1. Large central right lung mass measuring 6.7 x 4.2 x 6.1 cm with large adjacent satellite right upper lobe mass measuring 4.7 x 5.0 cm. Right anterior tracheal and right paratracheal adenopathy without evidence for contralateral or distant thoracic metastatic disease. 2. Trace right pleural effusion. 3. Trace anterior pericardial effusion. Myocardial Perfusion Scan Nuc Med 11/25/17 11:00 CONCLUSION: 1. No evidence to suggest ischemic myocardial changes. Labs on day of discharge: Labs from last 24 hours 11/26/17 11/26/17 11/26/17 05:01 05:01 05:01 WBC 5.4 RBC 4.41 Hgb 13.0 Hct 39.7 MCV 90.0 MCH 29.4 MCHC 32.7 RDW 18.4 H Plt Count 193 MPV 8.5 Neut % (Auto) 70.5 H Lymph % (Auto) 21.9 [place] % (Auto) 2.8 Eos % (Auto) 3.6 Baso % (Auto) 1.2 Neut # (Auto) 3.8 Lymph # (Auto) 1.2 [place] # (Auto) 0.2 Eos # (Auto) 0.2 Baso # (Auto) 0.1 WBC Differential . Differential Comment Auto diff final APTT Sodium 145 Potassium 3.9 Chloride 110 H Carbon Dioxide 28.6 Anion Gap 6 BUN 12 Creatinine 0.83 Estimated GFR 65 L Random Glucose 91 Hemoglobin A1c Pending Calcium 8.5 Phosphorus 3.3 Magnesium 2.3 Total Bilirubin 0.4 AST 45 H ALT 30 Alkaline Phosphatase 45 Total Protein 6.2 L D Albumin 2.6 L D TSH 1.530 Free T4 0.97 11/26/17 05:01 WBC RBC Hgb Hct MCV MCH MCHC RDW Plt Count MPV Neut % (Auto) Lymph % (Auto) [place] % (Auto) Eos % (Auto) Baso % (Auto) Neut # (Auto) Lymph # (Auto) [place] # (Auto) Eos # (Auto) Baso # (Auto) WBC Differential Differential Comment APTT 51.1 H Sodium Potassium Chloride Carbon Dioxide Anion Gap BUN Creatinine Estimated GFR Random Glucose Hemoglobin A1c Calcium Phosphorus Magnesium Total Bilirubin AST ALT Alkaline Phosphatase Total Protein Albumin TSH Free T4 - Impressions ITS Impressions Chest X-Ray 11/24/17 11:35 CONCLUSION: Findings are concerning for right upper lobe mass with right hilar adenopathy. CT chest with contrast recommended for further evaluation. Chest CT 11/24/17 13:15 CONCLUSION: 1. Large central right lung mass measuring 6.7 x 4.2 x 6.1 cm with large adjacent satellite right upper lobe mass measuring 4.7 x 5.0 cm. Right anterior tracheal and right paratracheal adenopathy without evidence for contralateral or distant thoracic metastatic disease. 2. Trace right pleural effusion. 3. Trace anterior pericardial effusion. Myocardial Perfusion Scan Nuc Med 11/25/17 11:00 CONCLUSION: 1. No evidence to suggest ischemic myocardial changes. Discharge Plan - Discharge Disposition Patient Disposition: 01 Discharge Home - Discharge Condition Condition: Good - Discharge Order Discharge Orders: Discharge Order (Routine); Ordered 11/26/17 Ordered By: Luis Daniel Rios - Discharge Details Anticipated Discharge Date: 11/26/17 Discharge Comment: DC TO HOME - Physicians Team Primary Care Provider: Josiah Will Attending Provider: Luis Daniel Rios Other Providers: Paige Kinsey MD ; Zoe Gonzalez MD ; Chucky Locke MD
[2018-01-05] MEDS ORDERED: valACYclovir 500 MG Tab PO SCH (17:45)
[2018-01-05] MEDS ORDERED: Piperacil/Tazo 3.375 GM Premix 50 ML IV.SIG SCH (20:00)
== END 2017-11-26 17:20 | disposition home or self-care (01) ==
LOC: PHED 11:25 → PHEDA 12:52 → HCIS 15:30
PROVIDERS: ADMIT Hospitalist; ATTEND Hospitalist

== ENCOUNTER 2018-01-05 11:11 | Inpatient (IN) ==
--- NOTE | 2018-01-05 12:01 | ED ---
HPI General Chief Complaint: Respiratory Symptoms Stated Complaint: Medical Complaint Time Seen by Provider: 01/05/18 11:21 Source: patient and family Mode of arrival: wheelchair Limitations: no limitations History of Present Illness HPI Narrative: 82-year-old female the presents to the ED for evaluation of shortness of breath and crackles to her left lung. Per family and patient she was recently diagnosed with stage IV lung cancer. She had her first round of chemotherapy as well as immunotherapy last week. Patient has a history of Crohn 's disease as well. Patient also has a history of COPD and uses inhalers at home. She uses 2 L of oxygen at home. Per caregiver patient has been putting more shortness of breath as well as crackles to the left side of her lung since yesterday. Cough productive. She believes that the patient may be having pneumonia. No sick contacts. She does have a history of shingles and was recently diagnosed with shingles and started on acyclovir. Denies any other medical issues at this time. No history of CHF as far as the caregiver knows. She has noticed some swelling on her lower legs. Patient herself does not really provide much history. Most of the history is provided by the caregiver. She currently is on oxygen. No abdominal pain. She did had some diarrhea just from getting from the wheelchair to the bed. She denies any chest pain. No abdominal pain. Related Data Home Medications Medication Instructions Recorded Confirmed B12 1,000 units PO DAILY 11/24/17 12/29/17 budesonide 3 mg PO DAILY 11/24/17 12/29/17 calcium carbonate [Calcium 600] 1,200 mg PO DAILY 11/24/17 12/29/17 cholecalciferol (vitamin D3) 2,000 unit PO DAILY 11/24/17 12/29/17 [Vitamin D3] cranberry 500 mg PO DAILY 11/24/17 12/29/17 folic acid 1 mg PO DAILY 11/24/17 12/29/17 hydrocodone-acetaminophen 1 tab PO Q4-6H PRN 11/24/17 12/29/17 hyoscyamine sulfate 0.375 mg PO Q12H 11/24/17 12/29/17 lactobacillus combination no.4 3,000 mmu cells PO DAILY 11/24/17 12/29/17 [Probiotic] magnesium 500 mg PO DAILY 11/24/17 12/29/17 methotrexate sodium [Trexall] 5 mg PO QWEEK 11/24/17 12/29/17 mouthwash compounding base 227 See Protocol DAILY MDD 4 11/24/17 12/29/17 [Mouthwash-OM] xt-vd-kxkj-FA-Ca carb-vit K 1 tab PO DAILY 11/24/17 12/29/17 [Women's Multivitamin] nystatin 1 applic TOPICAL DAILY 11/24/17 12/29/17 pitavastatin calcium [Livalo] 1 mg PO DAILY 11/24/17 12/29/17 potassium gluconate 595 mg PO DAILY 11/24/17 12/29/17 sertraline 25 mg PO DAILY 11/24/17 12/29/17 timolol 1 drp OPHTHALMIC (EYE) BID 11/24/17 12/29/17 vit C,P-Yf-zfdkb-lutein-zeaxan 1 tab PO DAILY 11/24/17 12/29/17 [PreserVision AREDS 2] ranitidine HCl [Zantac] 150 mg PO DAILY 12/16/17 12/29/17 Previous Rx's Medication Instructions Recorded carvedilol [Coreg] 3.125 mg PO BID #60 tab 11/26/17 nitroglycerin [Nitrostat] 0.4 mg SUBLINGUAL Q5M PRN #100 tab 11/26/17 Allergies Allergy/AdvReac Type Severity Reaction Status Date / Time drake Allergy Severe Swelling Verified 12/29/17 08:58 pravastatin Allergy Intermediate flu like Verified 12/29/17 08:58 symtoms simvastatin Allergy Intermediate flu like Verified 12/29/17 08:58 symtpoms azithromycin [From Zithromax] Allergy Anaphylaxis Verified 12/29/17 08:58 Review of Systems ROS: all other systems reviewed are negative [facility] Medical History Medical History Lung cancer (Acute) History of hysterectomy (Acute) Macular degeneration (Acute) Chronic pain (Acute) Arthritis (Acute) Dry mouth (Acute) High cholesterol (Acute) Depression (Acute) Osteopenia (Acute) Glaucoma (Acute) Colon spasm (Acute) GERD (gastroesophageal reflux disease) (Acute) Crohn disease (Acute) Failed spinal cord stimulator (Acute) Surgical History Surgical History S/P STEFANIE (total abdominal hysterectomy) (Acute) Corneal transplant status (Acute) Family History Family History Other History of cancer of gall bladder Leukemia Social History Social History Substance History: No History of Abuse Second Hand Smoke Exposure: No Smoking Status: Never smoker How Often Do You Have a Drink Containing Alcohol: Never Recent Travel in [facility] within the Last 8 Weeks: No Recent Out of Country Travel within the Last 8 Weeks: No Immunization History Tetanus Immunization: Unsure Hx Influenza Vaccine This Season: Yes Exam Narrative Exam Narrative: GENERAL: Well-groomed SKIN: Focused skin assessment warm/dry. HEAD: Atraumatic. Normocephalic. EYES: Pupils equal and round. No scleral icterus. No injection or drainage. ENT: No nasal bleeding or discharge. Mucous membranes pink and moist. Tongue is midline. No uvula deviation. NECK: Trachea midline. No JVD. CARDIOVASCULAR: Regular rate and rhythm. No murmur appreciated. RESPIRATORY: No accessory muscle use. Crackles heard in the left lower lung field compared to the right, diminished breath sounds on right lower lung. Breath sounds equal bilaterally. GASTROINTESTINAL: Abdomen soft, non-tender, nondistended. Hepatic and splenic margins not palpable. MUSCULOSKELETAL: No obvious deformities. No clubbing. No cyanosis. No edema. Full range of motion of the lower extremities. 2+ pulses bilaterally. 1+ pitting edema lower extremities. NEUROLOGICAL: Awake and alert. No obvious cranial nerve deficits. Motor grossly within normal limits. Normal speech. PSYCHIATRIC: Appropriate mood and affect; insight and judgment normal. Course Initial Documented Vital Signs Temperature 98.6 F 01/05/18 11:17 Pulse Rate 92 H 01/05/18 11:17 Respiratory Rate 30 H 01/05/18 11:17 Blood Pressure 123/70 01/05/18 11:17 Pulse Oximetry 98 01/05/18 11:17 Last Documented Vital Signs Temperature 98.6 F 01/05/18 11:17 Pulse Rate 92 H 01/05/18 11:51 Respiratory Rate 18 01/05/18 11:51 Blood Pressure 158/72 H 01/05/18 11:51 Pulse Oximetry 98 01/05/18 11:57 Medical Decision Making CAROLYN Attestation CAROLYN supervised visit: Yes Attestation: The history, exam, and medical decision-making in the associated mid-level provider note were completed with my assistance. I reviewed and agree with the findings presented. I attest that I had a [id number]-hl-[id number] encounter with the patient on the same day, and personally performed and documented my assessment and findings in the medical record. *My assessment and Findings: 82-year-old woman, metastatic lung cancer, or shortness of breath, found to have large pleural effusion. Appears chronically ill, little bit uncomfortable. Will plan on admission for drainage, treatment. MDM Narrative Medical decision making narrative: 82-year-old female that presents to the ED for evaluation of shortness of breath. Patient was properly examined and was found to have signs and symptoms of unclear etiology for possible from pleural effusion versus pneumonia. Labs and imaging order. Patient given breathing treatments at this time. Labs and imaging showed what appears to be a large pleural effusion on the right as well as a mild one on the left. Appears to be more significant from previous exam per x-ray. Otherwise labs and imaging were essentially unremarkable. Because of the significant pleural effusion with a recommend admission for likely thoracocentesis to remove the fluid. Patient and family agree with this. Case discussed with Dr. Pedroza the November admission to her service. Case was discussed with my attending Dr. Garcia who evaluated the patient and agrees with admission. Medical Screen Exam Complete: Yes Emergency Medical Condition: Yes Differential Diagnosis Differential Diagnosis: Pleural effusion versus medication side effect versus CHF versus pneumonia versus fluid overload versus PE Medical Records Medical records reviewed: Yes I reviewed the patient's medical records. Lab Data Lab results reviewed: Yes I reviewed the patient's lab results. Lab results narrative: troponin and CKMB negative BNP WNL Result diagrams: 01/05/18 11:50 01/05/18 11:50 Lab Results 01/05/18 01/05/18 01/05/18 Range/Units 11:50 11:50 11:50 WBC 4.1 (4.0-11.0) th/mm3 RBC 4.23 (4.00-5.30) mil/mm3 Hgb 12.4 (11.6-15.3) gm/dL Hct 38.4 (35.0-46.0) % MCV 90.7 (80.0-100.0) fL MCH 29.3 (27.0-34.0) pg MCHC 32.4 (32.0-36.0) % RDW 17.1 (11.6-17.2) % Plt Count 148 L D (150-450) th/mm3 MPV 8.6 (7.0-11.0) fL Neut % (Auto) 79.0 H (16.0-70.0) % Lymph % (Auto) 13.5 (9.0-44.0) % [place] % (Auto) 3.6 (0.0-8.0) % Eos % (Auto) 3.7 (0.0-4.0) % Baso % (Auto) 0.2 (0.0-2.0) % Neut # (Auto) 3.2 (1.8-7.7) th/mm3 Lymph # (Auto) 0.5 L (1.0-4.8) th/mm3 [place] # (Auto) 0.1 (0.0-0.9) th/mm3 Eos # (Auto) 0.1 (0.0-0.4) th/mm3 Baso # (Auto) 0.0 (0.0-0.2) th/mm3 WBC Differential . Differential Comment Auto diff final PT (9.8-11.6) sec INR Ratio APTT (24.3-30.1) sec Sodium 140 (136-145) meq/L Potassium 3.5 (3.5-5.1) meq/L Chloride 104 (98-107) meq/L Carbon Dioxide 29.3 (21.0-32.0) meq/L Anion Gap 7 (5-15) meq/L BUN 13 (7-18) mg/dL Creatinine 0.78 (0.50-1.00) mg/dL Estimated GFR 70 L (>89) mL/min Random Glucose 96 (74-106) mg/dL Lactic Acid (0.4-2.0) mmol/L Calcium 8.7 (8.5-10.1) mg/dL Total Bilirubin 0.4 (0.2-1.0) mg/dL AST 22 (15-37) U/L ALT 11 (10-53) U/L Alkaline Phosphatase 47 (45-117) U/L Total Creatine Kinase 46 (26-192) U/L Troponin I Less than 0.02 L (0.02-0.05) ng/mL B-Natriuretic Peptide 16 (0-100) pg/mL Total Protein 7.2 (6.4-8.2) g/dL Albumin 2.6 L (3.4-5.0) g/dL 01/05/18 01/05/18 Range/Units 11:50 11:50 WBC (4.0-11.0) th/mm3 RBC (4.00-5.30) mil/mm3 Hgb (11.6-15.3) gm/dL Hct (35.0-46.0) % MCV (80.0-100.0) fL MCH (27.0-34.0) pg MCHC (32.0-36.0) % RDW (11.6-17.2) % Plt Count (150-450) th/mm3 MPV (7.0-11.0) fL Neut % (Auto) (16.0-70.0) % Lymph % (Auto) (9.0-44.0) % [place] % (Auto) (0.0-8.0) % Eos % (Auto) (0.0-4.0) % Baso % (Auto) (0.0-2.0) % Neut # (Auto) (1.8-7.7) th/mm3 Lymph # (Auto) (1.0-4.8) th/mm3 [place] # (Auto) (0.0-0.9) th/mm3 Eos # (Auto) (0.0-0.4) th/mm3 Baso # (Auto) (0.0-0.2) th/mm3 WBC Differential Differential Comment PT 11.3 (9.8-11.6) sec INR 1.1 Ratio APTT 24.9 (24.3-30.1) sec Sodium (136-145) meq/L Potassium (3.5-5.1) meq/L Chloride (98-107) meq/L Carbon Dioxide (21.0-32.0) meq/L Anion Gap (5-15) meq/L BUN (7-18) mg/dL Creatinine (0.50-1.00) mg/dL Estimated GFR (>89) mL/min Random Glucose (74-106) mg/dL Lactic Acid 1.2 (0.4-2.0) mmol/L Calcium (8.5-10.1) mg/dL Total Bilirubin (0.2-1.0) mg/dL AST (15-37) U/L ALT (10-53) U/L Alkaline Phosphatase (45-117) U/L Total Creatine Kinase (26-192) U/L Troponin I (0.02-0.05) ng/mL B-Natriuretic Peptide (0-100) pg/mL Total Protein (6.4-8.2) g/dL Albumin (3.4-5.0) g/dL Imaging Data Attestation: I personally reviewed and interpreted this imaging study as follows : Radiologist's impression: Chest X-Ray 01/05/18 11:32 CONCLUSION: 1. Large pleural effusion on the right. Moderate effusion on the left. These have significantly worsened when compared to previous of 12/16/2017. 2. Known right hilar mass. Discharge Plan Physicians Team ED Provider: Andrea Garcia ED Midlevel Provider: Tip Solares Primary Care Provider: Josiah Will Rxs /Orders / Referrals /Forms Prescriptions: No Action B12 1,000 units PO DAILY RF: 0 hydrocodone-acetaminophen 5-325 mg Tablet 1 tab PO Q4-6H PRN (Reason: Chronic Pain) RF: 0 calcium carbonate [Calcium 600] 600 mg calcium (1,500 mg) Tablet 1,200 mg PO DAILY RF: 0 hyoscyamine sulfate 0.375 mg Tablet Extended Release 12 Hr 0.375 mg PO Q12H RF: 0 timolol 0.5 % Drops 1 drp OPHTHALMIC (EYE) BID RF: 0 nystatin 100,000 unit/gram Cream 1 applic TOPICAL DAILY RF: 0 methotrexate sodium [Trexall] 5 mg Tablet 5 mg PO QWEEK RF: 0 sertraline 25 mg Tablet 25 mg PO DAILY RF: 0 folic acid 1 mg Tablet 1 mg PO DAILY RF: 0 magnesium 250 mg Tablet 500 mg PO DAILY RF: 0 budesonide 3 mg Capsule,Delayed,Extend.Release 3 mg PO DAILY RF: 0 cranberry 500 mg Capsule 500 mg PO DAILY RF: 0 potassium gluconate 595 mg (99 mg) Tablet 595 mg PO DAILY RF: 0 cholecalciferol (vitamin D3) [Vitamin D3] 2,000 unit Capsule 2,000 unit PO DAILY RF: 0 pitavastatin calcium [Livalo] 1 mg Tablet 1 mg PO DAILY RF: 0 zr-ih-sqfu-FA-Ca carb-vit K [Women's Multivitamin] 18 mg iron-400 mcg-500 mg Tablet 1 tab PO DAILY RF: 0 lactobacillus combination no.4 [Probiotic] 3 billion cell Capsule 3,000 mmu cells PO DAILY RF: 0 vit C,E-Di-wgyfw-lutein-zeaxan [PreserVision AREDS 2] 757-600-63-1 mg-unit-mg- mg Capsule 1 tab PO DAILY RF: 0 mouthwash compounding base 227 [Mouthwash-OM] Mouthwash DAILY MDD 4 RF: 0 carvedilol [Coreg] 3.125 mg Tablet 3.125 mg PO BID Qty: 60 RF: 0 nitroglycerin [Nitrostat] 0.4 mg Tablet, Sublingual 0.4 mg Sublingual Q5M PRN (Reason: Angina) Qty: 100 RF: 0 ranitidine HCl [Zantac] 150 mg Tablet 150 mg PO DAILY RF: 0 Discharge Interventions Interventions: Vital Signs Last Done: 01/05/18 11:20 Status ED Status: With Doctor
[2018-01-05 12:30] LABS: Baso % (Auto) 0.2 % (0.0-2.0); Eos # (Auto) 0.1 th/mm3 (0.0-0.4); Eos % (Auto) 3.7 % (0.0-4.0); Hematocrit 38.4 % (35.0-46.0); Hemoglobin 12.4 gm/dL (11.6-15.3); Lymph # (Auto) 0.5 th/mm3 (1.0-4.8); Lymph % (Auto) 13.5 % (9.0-44.0); Mean Corpuscular HGB Conc 32.4 % (32.0-36.0); Mean Corpuscular Hemoglobin 29.3 pg (27.0-34.0); Mean Corpuscular Volume 90.7 fL (80.0-100.0); Mean Platelet Volume 8.6 fL (7.0-11.0); Mono # (Auto) 0.1 th/mm3 (0.0-0.9); Mono % (Auto) 3.6 % (0.0-8.0); Neut # (Auto) 3.2 th/mm3 (1.8-7.7); Platelet Count 148 th/mm3 (150-450); Red Blood Count 4.23 mil/mm3 (4.00-5.30); Red Cell Distribution Width 17.1 % (11.6-17.2); White Blood Count 4.1 th/mm3 (4.0-11.0)
[2018-01-05 12:38] LABS: Activated Partial Thrombo Time 24.9 sec (24.3-30.1); INR 1.1 Ratio; Prothrombin Time 11.3 sec (9.8-11.6)
[2018-01-05 12:55] LABS: Albumin 2.6 g/dL (3.4-5.0); Anion Gap 7 meq/L (5-15); Aspartate Aminotransferase 22 U/L (15-37); Blood Urea Nitrogen 13 mg/dL (7-18); Calcium 8.7 mg/dL (8.5-10.1); Carbon Dioxide 29.3 meq/L (21.0-32.0); Chloride 104 meq/L (98-107); Glomerular Filtration Rate 70 mL/min (>89); Glucose,Random 96 mg/dL (74-106); Potassium 3.5 meq/L (3.5-5.1); Sodium 140 meq/L (136-145)
[2018-01-05 12:59] LABS: Alanine Aminotransferase 11 U/L (10-53); Alkaline Phosphatase 47 U/L (45-117); Total Protein 7.2 g/dL (6.4-8.2)
--- NOTE | 2018-01-05 13:02 | XR ---
EXAM DATE: 01/05/2018 12:57 PM EDT AGE/SEX: 82 years / Female INDICATIONS: Short of breath, congestion, weakness for several days, lung carcinoma CLINICAL DATA: This is the patient's initial encounter. Patient reports that signs and symptoms have been present for 3 days and indicates a pain score of 0/10. MEDICAL/SURGICAL HISTORY: Carcinoma, lung. . infusaport [place] [facility] [place]. . FINDINGS: The examination demonstrates large bilateral pleural effusions and consolidative changes in the lung bases. The patient's Hwomlp-m-Knfo in satisfactory position. Note is made of a large right hilar mass. The visualized bony structures are grossly intact. CONCLUSION: 1. Large pleural effusion on the right. Moderate effusion on the left. These have significantly wors ened when compared to previous of 12/16/2017. 2. Known right hilar mass. Electronically signed by: Chico Peña MD 01/05/2018 1:01 PM EDT
[2018-01-05 13:05] LABS: Creatine Kinase 46 U/L (26-192)
--- NOTE | 2018-01-05 18:04 | P.HP ---
History of Present Illness Service: [facility] service Primary Care Physician: Josiah Will MD Chief Complaint: Shortness of breath History of Present Illness: Patient is a very pleasant 82-year-old female, history of Crohn's colitis, with known history of COPD O2 dependent , recently diagnosed stage IV lung cancerand just completed immunotherapy in December 31, and undergoing chemotherapy. Patient is in the process of getting simulation to start radiation therapy. she is followed by Dr. Gonzalez and Dr. Andrea Wolff. About 2-3 prior to admission patient complained of shortness of breath, easy fatigability. Patient daughter also states that patient was coughing and bringing up heavy, thick dark yellowish sputum. No hemoptysis. There was no fever reported. Patient also complained of poor p.o. appetite and weight loss. Persistence of symptoms prompted consult to ER and was noted to have bilateral pleural effusion larger on the right moderate on the left. Patient admitted for further evaluation and management. Inpatient Certification: I certify that the inpatient services were ordered in accordance with Medicare regulations governing the order. This includes certification that hospital inpatient services are reasonable and necessary and in the case of services not specified as inpatient-only under 42 CFR 419.22(n), that they are appropriately provided as inpatient services in accordance to with the 2-midnight benchmark under 43 CFR 412.3(e) [facility] - History History Provided By: Patient - Medical History Medical History: Medical History (Last Reviewed 01/05/18 @ 11:59 by NOESIMO Carr) Lung cancer (Acute) History of hysterectomy (Acute) Macular degeneration (Acute) Chronic pain (Acute) Arthritis (Acute) Dry mouth (Acute) High cholesterol (Acute) Depression (Acute) Osteopenia (Acute) Glaucoma (Acute) Colon spasm (Acute) GERD (gastroesophageal reflux disease) (Acute) Crohn disease (Acute) Failed spinal cord stimulator - Surgical History Surgical History: Surgical History (Last Reviewed 01/05/18 @ 11:59 by ONESIMO Carr) S/P STEFANIE (total abdominal hysterectomy) (Acute) Corneal transplant status (Acute) - Family History Family History: Family History (Last Reviewed 01/05/18 @ 11:59 by ONESIMO Carr) Other History of cancer of gall bladder Leukemia - Tobacco History Second Hand Smoke Exposure: No Tobacco Use In Past 30 Days: No Smoking Status: Former smoker (Smoker quit 30 years ago) - Alcohol History How Often Do You Have a Drink Containing Alcohol: Never - Substance Use History Substance History: No History of Abuse - Travel History Recent Travel in the [place] Within the Last 8 Weeks: No Recent Travel Out of the Country Within the Last 8 Weeks: No - Immunization History Tetanus Immunization: Unsure Hx Influenza Vaccine This Season: Yes Medications and Allergies Active Medications: Active Medications Megestrol Acetate (Megace Liq) 0 mg PO AC JENNIFER Valacyclovir HCl (Valtrex) 1,000 mg PO Q8HR JENNIFER Stop: 01/07/18 22:01 Allergies Allergy/AdvReac Type Severity Reaction Status Date / Time drake Allergy Severe Swelling Verified 12/29/17 08:58 pravastatin Allergy Intermediate flu like Verified 12/29/17 08:58 symtoms simvastatin Allergy Intermediate flu like Verified 12/29/17 08:58 symtpoms azithromycin [From Zithromax] Allergy Anaphylaxis Verified 12/29/17 08:58 Home Medications Medication Instructions Recorded Confirmed Type budesonide 3 mg PO DAILY 11/24/17 01/05/18 History calcium carbonate [Calcium 600] 1,200 mg PO DAILY 11/24/17 01/05/18 History cholecalciferol (vitamin D3) 2,000 unit PO DAILY 11/24/17 01/05/18 History [Vitamin D3] cranberry 500 mg PO DAILY 11/24/17 01/05/18 History folic acid 1 mg PO DAILY 11/24/17 01/05/18 History hydrocodone-acetaminophen 1 tab PO Q4-6H PRN 11/24/17 01/05/18 History hyoscyamine sulfate 0.375 mg PO Q12H 11/24/17 01/05/18 History lactobacillus combination no.4 3,000 mmu cells PO DAILY 11/24/17 01/05/18 History [Probiotic] magnesium 500 mg PO DAILY 11/24/17 01/05/18 History methotrexate sodium [Trexall] 5 mg PO QWEEK 11/24/17 01/05/18 History mouthwash compounding base 227 See Protocol DAILY MDD 4 11/24/17 01/05/18 History [Mouthwash-OM] mb-wt-jpvb-FA-Ca carb-vit K 1 tab PO DAILY 11/24/17 01/05/18 History [Women's Multivitamin] nystatin 1 applic TOPICAL DAILY 11/24/17 01/05/18 History pitavastatin calcium [Livalo] 1 mg PO DAILY 11/24/17 01/05/18 History potassium gluconate 595 mg PO DAILY 11/24/17 01/05/18 History sertraline 25 mg PO DAILY 11/24/17 01/05/18 History timolol 1 drp OPHTHALMIC (EYE) BID 11/24/17 01/05/18 History vit C,K-It-dtivg-lutein-zeaxan 1 tab PO DAILY 11/24/17 01/05/18 History [PreserVision AREDS 2] ranitidine HCl [Zantac] 150 mg PO DAILY 12/16/17 01/05/18 History Breo Ellipta 200 mcg INHALATION DAILY 01/05/18 01/05/18 History Vitamin D2 50,000 unit PO WEEKLY 01/05/18 01/05/18 History Zofran 8 mg PO TID 01/05/18 01/05/18 History hydromorphone 2 mg PO QID 01/05/18 01/05/18 History Exam Vital signs: Vital Signs 01/05/18 11:17 01/05/18 11:20 01/05/18 11:31 Temperature 98.6 F Pulse Rate 92 H 89 Respiratory Rate 30 H 18 Blood Pressure 123/70 158/72 H Pulse Oximetry 98 100 94 L 01/05/18 11:48 01/05/18 11:51 01/05/18 11:57 Temperature Pulse Rate 94 H 92 H Respiratory Rate 20 18 Blood Pressure 158/72 H Pulse Oximetry 99 98 01/05/18 14:27 01/05/18 16:10 Temperature Pulse Rate 79 87 Respiratory Rate 24 18 Blood Pressure 145/77 H 153/86 H Pulse Oximetry 95 96 Intake & Output 01/04/18 01/05/18 01/05/18 18:59 06:59 18:59 Weight 63.503 kg Narrative: Awake alert oriented 3 in no acute distres, but appears tired. Anicteric sclerae Neck supple Chest/lungs. Symmetrical in expansion positive rales on the left base decreased breath sounds bilaterally and decreased vocal fremitus I right Regular rhythm Abdomen is soft good bowel sounds no guarding no rigidity Extremities no edema good peripheral pulses Neurologic exam nonfocal Results - Labs CBC & Chem 7: 01/08/18 08:35 01/08/18 08:35 Labs: Laboratory Results - last 24 hr 01/05/18 01/05/18 01/05/18 11:50 11:50 11:50 WBC 4.1 RBC 4.23 Hgb 12.4 Hct 38.4 MCV 90.7 MCH 29.3 MCHC 32.4 RDW 17.1 Plt Count 148 L D MPV 8.6 Neut % (Auto) 79.0 H Lymph % (Auto) 13.5 [place] % (Auto) 3.6 Eos % (Auto) 3.7 Baso % (Auto) 0.2 Neut # (Auto) 3.2 Lymph # (Auto) 0.5 L [place] # (Auto) 0.1 Eos # (Auto) 0.1 Baso # (Auto) 0.0 WBC Differential . Differential Comment Auto diff final PT INR APTT Sodium 140 Potassium 3.5 Chloride 104 Carbon Dioxide 29.3 Anion Gap 7 BUN 13 Creatinine 0.78 Estimated GFR 70 L Random Glucose 96 Lactic Acid Calcium 8.7 Total Bilirubin 0.4 AST 22 ALT 11 Alkaline Phosphatase 47 Total Creatine Kinase 46 Troponin I Less than 0.02 L B-Natriuretic Peptide 16 Total Protein 7.2 Albumin 2.6 L Stl C.difficile Tox PCR St C. diff Tox Epid 027 01/05/18 01/05/18 01/05/18 11:50 11:50 12:00 WBC RBC Hgb Hct MCV MCH MCHC RDW Plt Count MPV Neut % (Auto) Lymph % (Auto) [place] % (Auto) Eos % (Auto) Baso % (Auto) Neut # (Auto) Lymph # (Auto) [place] # (Auto) Eos # (Auto) Baso # (Auto) WBC Differential Differential Comment PT 11.3 INR 1.1 APTT 24.9 Sodium Potassium Chloride Carbon Dioxide Anion Gap BUN Creatinine Estimated GFR Random Glucose Lactic Acid 1.2 Calcium Total Bilirubin AST ALT Alkaline Phosphatase Total Creatine Kinase Troponin I B-Natriuretic Peptide Total Protein Albumin Stl C.difficile Tox PCR Positive H St C. diff Tox Epid 027 Negative - Imaging Impressions Chest X-Ray 01/05/18 11:32 CONCLUSION: 1. Large pleural effusion on the right. Moderate effusion on the left. These have significantly worsened when compared to previous of 12/16/2017. 2. Known right hilar mass. Caprini VTE Risk Assessment Caprini VTE Risk Assessment: Moderate/High Risk (score >= 2) VTE Pharmacological Exception Reason: Documented (wrk up in process may reuire thoracentesis) Caprini Risk Assessment Model: Point Value = 1 Point Value = 2 Point Value = 3 Point Value = 5 Age 41-60 Minor surgery BMI > 25 kg/m2 Swollen legs Varicose veins or History of unexplained or recurrent spontaneous Oral contraceptives or hormone replacement Sepsis (< 1 month) Serious lung disease, including pneumonia (< 1 month) Abnormal pulmonary function Acute myocardial infarction Congestive heart failure (< 1 month) History of inflammatory bowel disease Medical patient at bed rest Age 61-74 Arthroscopic surgery Major open surgery (> 45 min) Laparoscopic surgery (> 45 min) Malignancy Confined to bed (> 72 hours) Immobilizing plaster cast Central venous access Age >= 75 History of VTE Family history of VTE Factor V Leiden Prothrombin [id number] Lupus anticoagulant Anticardiolipin antibodies Elevated serum homocysteine Heparin-induced thrombocytopenia Other congenital or acquired thrombophilia Stroke (< 1 month) Elective arthroplasty Hip, pelvis, or leg fracture Acute spinal cord injury (< 1 month) Prophylaxis Regimen: Total Risk Factor Score Risk Level Prophylaxis Regimen 0-1 Low Early ambulation 2 Moderate Order ONE of the following: *Sequential Compression Device (SCD) *Heparin 5000 units SQ BID 3-4 Higher Order ONE of the following medications: *Heparin 5000 units SQ TID *Enoxaparin/Lovenox 40 mg SQ daily (WT < 150 kg, CrCl > 30 mL/min) *Enoxaparin/Lovenox 30 mg SQ daily (WT < 150 kg, CrCl > 10-29 mL/min) *Enoxaparin/Lovenox 30 mg SQ BID (WT < 150 kg, CrCl > 30 mL/min) AND/OR *Sequential Compression Device (SCD) 5 or more Highest Order ONE of the following medications: *Heparin 5000 units SQ TID (Preferred with Epidurals) *Enoxaparin/Lovenox 40 mg SQ daily (WT < 150 kg, CrCl > 30 mL/min) *Enoxaparin/Lovenox 30 mg SQ daily (WT < 150 kg, CrCl > 10-29 mL/min) *Enoxaparin/Lovenox 30 mg SQ BID (WT < 150 kg, CrCl > 30 mL/min) AND *Sequential Compression Device (SCD) Assessment and Plan - Plan 82-year-old female Shortness of breath - Bilateral pleural effusion likely malignant-Large on the left, moderated on the right Stage IV Lung cancer Pneumonia r/o parapneumonic effusion - productive of dark thick yellowish sputum Exam with crackles left base - We will consult her merchandise clerk Dr. Wolff-whether to proceed with thoracentesis versus chest tube as could be recurrent - IR consult for thoracentesis- diagnostic and therapeutic if significant amount of fluid on US -If thoracentesis done - send fluid studies for Gram stain C and S. -Send sputum for studies - Continue on pain meds hydrocodone 5/325 one tab every 4-6 hours as needed for pain. Dilaudid 2 mg po qid -Start Zosyn 3.375 IV q 6 - Plan was to initiate radiation therapy COPD, O2 dependent = Continue O2 nasal cannula -Continue on inhalers. -continue on duo nebs every 4 as needed. Hx of chest pain - - Echo ejection fraction 63%. A myocardial perfusion study was negative for any ischemia last October - Patient is on maintenance Coreg 3.125 mg p.o. twice daily. Pravachol hs - Was supposed to follow-up with Dr. Martin as outpatient. History of Crohn's disease patient on Antivia Continue home meds of methotrexate 15 mg q. Thursday. Continue on patient's home GI meds Herpes Zoster-Right upper back. -Patient to complete course of Valtrex 1 g 3 times daily 8 more doses. - Hydrocodone 5/325 mg 1 tab po q 4- 6 prn for pain Depression. Continue on sertraline 25 mg daily Poor p.o. appetite. -Will continue on her Megace daily - Dietitian consult for recommendation. Hold chemical prophylaxis- for now- for possible thoracentesis TEDs/SCDs discussed with patient and family
[2018-01-05] MEDS: valACYclovir 500 MG Tab PO SCH ×2 (19:03→21:18)
[2018-01-05] MEDS: Timolol 0.5% Drops 5 ML Bottle EACH EYE SCH (21:20)
[2018-01-05] MEDS: Piperacil/Tazo 3.375 GM Premix 50 ML IV.SIG SCH (22:56)
[2018-01-06] MEDS: Piperacil/Tazo 3.375 GM Premix 50 ML IV.SIG SCH ×3 (03:36→17:41)
[2018-01-06] MEDS: valACYclovir 500 MG Tab PO SCH ×2 (06:08→17:41)
[2018-01-06] MEDS ORDERED: BUDESONIDE 3 MG PO SCH (09:00)
[2018-01-06] MEDS ORDERED: [UNRECOGNIZED DRUG - OTHER] PO SCH (09:00)
[2018-01-06] MEDS ORDERED: Non-Formulary Drug (Cranberry [Cranberry] 500 MG) PO SCH (09:00)
[2018-01-06] MEDS: Magnesium Oxide 400 MG Tablet PO SCH (09:39)
[2018-01-06] MEDS: Sertraline 50 MG Tablet PO SCH (09:40)
[2018-01-06] MEDS: Vitamins A,C,E/Lutein/Minerals Tablet PO SCH (09:40)
[2018-01-06] MEDS: Folic Acid 1 MG Tablet PO SCH (09:41)
[2018-01-06] MEDS: Famotidine 20 MG Tablet PO SCH (09:42)
[2018-01-06] MEDS: Megestrol Acetate Liq 400 MG/10 ML UDC PO SCH (09:43)
--- NOTE | 2018-01-06 11:38 | ECG ---
Date Performed: 01/05/2018 Time Performed: 21:41:51 PTAGE: 82 years EKG: Sinus rhythm LOW QRS VOLTAGE IN PRECORDIAL LEADS BORDERLINE ECG PREVIOUS TRACING : 11/25/2017 05.56 DOCTOR: Andrea Arora Interpretating Date/Time 01/06/2018 11:37:53
[2018-01-06] MEDS: Timolol 0.5% Drops 5 ML Bottle EACH EYE SCH (12:25)
--- NOTE | 2018-01-06 13:25 | US ---
EXAM DATE: 01/06/2018 12:46 PM EDT AGE/SEX: 82 years / Female INDICATIONS: Pleural effusion. CLINICAL DATA: This is the patient's initial encounter. Patient reports that signs and symptoms have been present for 1 month and indicates a pain score of 0/10. MEDICAL/SURGICAL HISTORY: Crohn's disease. Gastroesophageal reflux disease. Hypercholesterole ikra. Colon spasm. Failed spinal cord stimulator. Lung cancer. Macular degeneration. Osteopenia. Hy sterectomy. [place] [facility] [place]. . MEASUREMENTS: Skin To Parietal Pleura:__1.9 cm Skin To Max Safe Depth:__2.8 cm Estimated Fluid Volume:__74.8 cc Fluid Composition:__inadequate fluid FINDINGS: A tiny right pleural effusion is observed. This is insufficient in volume for safe thoracentesis. No marking was performed. CONCLUSION: 1. Tiny right pleural effusion with insufficient volume for safe thoracentesis. Electronically signed by: Frankie Schneider MD 01/06/2018 1:24 PM EDT
--- NOTE | 2018-01-06 14:47 | ECHRPT ---
Indication: Shortness of Breath CONCLUSIONS Normal left ventricular size. Wall thickness is normal. The left ventricular systolic function is normal with an estimated ejection fraction in the range of 60-65%. No definite regional wall motion abnormalities are present. Possible mild aortic valve sclerosis is present. There is trace tricuspid valve regurgitation. There is a small pericardial effusion present. No echocardiographic evidence for tamponade. BP: / HR: Rhythm: MEASUREMENTS (Male / Female) Normal Values Technical Quality:Technically difficult study 2D ECHO LV Diastolic Diameter PLAX 3.3 cm 4.2 - 5.9 / 3.9 - 5.3 cm LV Systolic Diameter PLAX 2.5 cm IVS Diastolic Thickness 1.0 cm 0.6 - 1.0 / 0.6 - 0.9 cm LVPW Diastolic Thickness 1.0 cm 0.6 - 1.0 / 0.6 - 0.9 cm LV Relative Wall Thickness 0.6 RV Internal Dim ED PLAX 2.8 cm LVOT Diameter 2.0 cm Aortic Root Diameter 2.6 cm LA Systolic Diameter LX 2.5 cm 3.0 - 4.0 / 2.7 - 3.8 cm M-MODE AV Cusp Separation MM 1.8 cm DOPPLER AV Peak Velocity 148.0 cm/s AV Peak Gradient 8.8 mmHg LVOT Peak Velocity 91.9 cm/s LVOT Peak Gradient 3.4 mmHg AV Area Cont Eq pk 2.0 cm Mitral E Point Velocity 68.6 cm/s Mitral A Point Velocity 89.8 cm/s Mitral E to A Ratio 0.8 LV E' Lateral Velocity 7.7 cm/s Mitral E to LV E' Lateral Ratio 8.9 LV E' Septal Velocity 8.6 cm/s Mitral E to LV E' Septal Ratio 8.0 TR Peak Velocity 285.0 cm/s TR Peak Gradient 32.5 mmHg Right Atrial Pressure 10.0 mmHg Pulmonary Artery Systolic Pressu 42.5 mmHg Right Ventricular Systolic Press 42.5 mmHg PV Peak Velocity 82.5 cm/s PV Peak Gradient 2.7 mmHg FINDINGS LEFT VENTRICLE Normal left ventricular size. Wall thickness is normal. The left ventricular systolic function is normal with an estimated ejection fraction in the range of 60-65%. No definite regional wall motion abnormalities are present. RIGHT VENTRICLE Normal right ventricular size and systolic function. LEFT ATRIUM The left atrial size is normal. RIGHT ATRIUM The right atrial size is normal. ATRIAL SEPTUM Normal atrial septal thickness without atrial level shunting by limited color doppler interrogation. AORTA The aortic root and proximal ascending aorta are normal in size on limited imaging. MITRAL VALVE Structurally normal mitral valve. No mitral valve stenosis or regurgitation. AORTIC VALVE Trileaflet aortic valve. Possible mild aortic valve sclerosis is present. TRICUSPID VALVE There is trace tricuspid valve regurgitation. PULMONARY VALVE Trivial pulmonary valve regurgitation. VESSELS The inferior vena cava is normal in size. PERICARDIUM There is a small pericardial effusion present. No echocardiographic evidence for tamponade. Pepe Brown MD (Electronically Signed) Final Date:06 January 2018 14:45
--- NOTE | 2018-01-06 15:10 | P.PNIM ---
Subjective Interval history: Positive C. difficile testing. Patient will have thoracentesis today. No new complaints. Physical Exam Vital signs: Vital Signs 01/05/18 16:10 01/05/18 18:47 01/05/18 20:00 Temperature 98.4 F Pulse Rate 87 87 96 H Respiratory Rate 18 20 21 Blood Pressure 153/86 H 136/60 131/52 L Pulse Oximetry 96 97 95 01/06/18 00:00 01/06/18 04:00 01/06/18 08:00 Temperature 97.3 F L 97.3 F L 97.3 F L Pulse Rate 97 H 104 H 95 H Respiratory Rate 22 21 20 Blood Pressure 169/74 H 123/62 104/51 L Pulse Oximetry 97 94 L 97 01/06/18 12:14 Temperature 98.3 F Pulse Rate 88 Respiratory Rate 22 Blood Pressure 111/58 L Pulse Oximetry 98 Intake & Output 01/05/18 01/06/18 01/06/18 18:59 06:59 18:59 Intake Total 520 / 520 Balance 520 / 520 Weight 63.503 kg 63.6 kg Intake: IV 100 / 100 Zosyn 3.375 GM Premix 50 ML @ 100 / 100 100 mls/hr IV.SIG Q6H JENNIFER Rx#: [id number] Oral 420 / 420 Other: # Voids 3 Date of Last Bowel Movement 01/05/18 # Bowel Movements 1 Narrative: GENERAL: NAD, A&Ox3 HEAD: Normocephalic. NECK: Supple, trachea midline. No lymphadenopathy. EYES: No scleral icterus. No injection or drainage. CARDIOVASCULAR: Regular rate and rhythm without murmurs, gallops, or rubs. RESPIRATORY: Breath sounds equal bilaterally. No accessory muscle use. GASTROINTESTINAL: Abdomen soft, non-tender, nondistended. MUSCULOSKELETAL: No cyanosis, or edema. SKIN: Warm and dry. NEURO: No focal neurological deficits. Results - Labs CBC & Chem 7: 01/05/18 11:50 01/05/18 11:50 Laboratory Results - last 24 hr 01/05/18 12:00 Stl C.difficile Tox PCR Positive H St C. diff Tox Epid 027 Negative Microbiology 01/05/18 12:00 Stool Clostridium difficile GDH Antigen - Final Positive - C. difficile Antigen detected. 01/05/18 12:00 Stool Clostridium difficile Toxin Assay - Final Negative - No C. difficile Toxin A or B detected. 01/05/18 11:55 Blood - Peripheral Aerobic Blood Culture - Preliminary No growth in 1 day 01/05/18 11:55 Blood - Peripheral Anaerobic Blood Culture - Preliminary No growth in 1 day 01/05/18 11:50 Blood - Peripheral Aerobic Blood Culture - Preliminary No growth in 1 day 01/05/18 11:50 Blood - Peripheral Anaerobic Blood Culture - Preliminary No growth in 1 day - Imaging Impressions Chest Ultrasound 01/06/18 00:00 CONCLUSION: 1. Tiny right pleural effusion with insufficient volume for safe thoracentesis. Assessment and Plan - Plan 82-year-old female admitted secondary to acute pleural effusion Bilateral pleural effusion Malignancy suspected Patient has stage IV lung cancer Testing of thoracentesis fluid Continue pain treatments Continue Zosyn COPD Chronic hypoxia Continue inhalers Needed duo nebs Continue oxygen supplementation History of Crohn's disease Continue Antivia Continue methotrexate Herpes Zoster-Right upper back. Valtrex continue [place] continue for pain Depression Continue on sertraline 25 mg daily Poor p.o. appetite. Continue Megace Dietitian following DVT prophylaxis No anticoagulation right now for thoracentesis SCDs
--- NOTE | 2018-01-06 17:20 | P.CON ---
History of Present Illness Service: Radiation oncology Consult date: 01/06/18 Requesting Physician: Zoe Gonzalez Primary Care Provider: Josiah Will MD Family Provider: Josiah Will MD Chief Complaint: Shortness of breath History of Present Illness: 82-year-old white female with a recent diagnosis of metastatic lung carcinoma. Patient had an appointment in my department today for discussion of radiotherapy to the lung for symptom control. Due to the fact that the patient had increased shortness of breath he was admitted to the hospital and inpatient consult has been requested for her therapy treatment options. Review of Systems Constitutional: Reports anorexia, Reports daytime sleepiness, Reports fatigue, Reports malaise, Reports weakness, Reports weight loss Eyes: Reports change in vision Ears, Nose, Mouth, and Throat: Reports pain with swallowing Cardiovascular: Reports shortness of breath with activity Respiratory: Reports cough, Reports pain with cough, Reports shortness of breath , Reports shortness of breath with activity Gastrointestinal: Denies abdominal pain, Denies belching, Denies black, tarry stools, Denies bloating, Denies bright, red blood in stools, Denies change in bowel habits, Denies constant urge to pass stool, Denies change in stools, Denies coffee ground vomit, Denies constipation, Denies cramping, Denies difficulty swallowing, Denies excessive passing of gas, Denies feeling full early, Denies heartburn, Denies incontinent of stools, Denies loose stools, Denies nausea, Denies pain with swallowing, Denies vomiting, Denies vomiting blood, Denies other Genitourinary: Denies abnormal periods, Denies abnormal vaginal bleeding, Denies absent period, Denies bleeding between periods, Denies blood in urine, Denies difficulty starting urination, Denies difficulty urinating, Denies dribbling after urination, Denies frequent nighttime urination, Denies genital itching, Denies genital lesions, Denies heavy periods, Denies hot flashes, Denies light periods, Denies nipple discharge, Denies painful intercourse, Denies painful periods, Denies painful urination, Denies pelvic pain, Denies prolapse symptoms, Denies sexual problems, Denies side pain, Denies urinary incontinence, Denies urinary urgency, Denies vaginal discharge, Denies vaginal dryness, Denies vaginal odor, Denies vaginal itching, Denies other Musculoskeletal: Reports body aches, Reports muscle weakness Skin/Breast: Denies acne, Denies bleeding lesions, Denies boil, Denies breast swelling, Denies breast skin changes, Denies breast pain, Denies breast lump, Denies change in breast shape, Denies change in hair, Denies change in skin color, Denies changing lesions, Denies dry skin, Denies excessive hair growth, Denies hair loss, Denies itching, Denies lesions, Denies nail changes, Denies new lesions, Denies nipple discharge, Denies non-healing lesions, Denies redness , Denies sensitivity to light, Denies rash, Denies skin pain, Denies skin ulcer , Denies sores, Denies stretch armando, Denies unusual bruising, Denies wounds, Denies yellowing of the skin, Denies other Neurologic: Denies abnormal hearing, Denies abnormal movements, Denies abnormal speech, Denies abnormal walking, Denies behavioral changes, Denies burning sensations, Denies confusion, Denies dizziness, Denies fainting, Denies frequent falls, Denies headache(s), Denies lack of coordination, Denies localized weakness, Denies loss of vision, Denies memory loss, Denies numbness, Denies other visual disturbances, Denies radiating pain, Denies restless legs, Denies convulsions, Denies seizure-like activity, Denies sensory deficit, Denies tingling, Denies tingling/numbness/burning sensations, Denies tremor(s), Denies unsteadiness, Denies weakness, Denies other Psychiatric: Denies abnormal sleep pattern, Denies anxiety, Denies behavioral changes, Denies change in appetite, Denies change in sex drive, Denies confusion , Denies depression, Denies difficulty concentrating, Denies hearing things others do not hear, Denies hopelessness, Denies irritability, Denies lack of enjoyment, Denies memory loss, Denies mood swings, Denies panic attacks, Denies paranoia, Denies seeing things others do not see, Denies sensing things others do not sense, Denies tactile hallucinations, Denies thoughts of hurting/killing others, Denies thoughts of hurting/killing yourself, Denies other Endocrine: Denies cold intolerance, Denies excessive sweating, Denies flushing, Denies heat intolerance, Denies increased hunger, Denies increased thirst, Denies increased urination, Denies rapid, pounding, or irregular heartbeat, Denies other Hematologic/Lymphatic: Denies easy bleeding, Denies easy bruising, Denies enlarged lymph nodes, Denies other Allergic/Immunologic: Denies GI upset with certain foods, Denies hives, Denies itchy eyes, Denies lip swelling, Denies seasonal runny nose (Patient was asleep , slightly confused. Information obtained from daughters), Denies throat swelling, Denies tongue swelling, Denies wheezing, Denies other PMFSH - History History Provided By: Patient, Family Member - Medical History Medical History: Medical History (Last Reviewed 01/05/18 @ 11:59 by ONESIMO Carr) Lung cancer (Acute) History of hysterectomy (Acute) Macular degeneration (Acute) Chronic pain (Acute) Arthritis (Acute) Dry mouth (Acute) High cholesterol (Acute) Depression (Acute) Osteopenia (Acute) Glaucoma (Acute) Colon spasm (Acute) GERD (gastroesophageal reflux disease) (Acute) Crohn disease (Acute) Failed spinal cord stimulator - Surgical History Surgical History: Surgical History (Last Reviewed 01/05/18 @ 11:59 by ONESIMO Carr) S/P STEFANIE (total abdominal hysterectomy) (Acute) Corneal transplant status (Acute) - Family History Family History: Family History (Last Reviewed 01/05/18 @ 11:59 by ONESIMO Carr) Other History of cancer of gall bladder Leukemia - Tobacco History Second Hand Smoke Exposure: No Tobacco Use In Past 30 Days: No Smoking Status: Former smoker (Smoker quit 30 years ago) - Alcohol History How Often Do You Have a Drink Containing Alcohol: Never - Substance Use History Substance History: No History of Abuse - Travel History Recent Travel in the [place] Within the Last 8 Weeks: No Recent Travel Out of the Country Within the Last 8 Weeks: No - Immunization History Tetanus Immunization: Unsure Hx Influenza Vaccine This Season: Yes Medications and Allergies Active Medications: Active Medications Hydrocodone Bitart/Acetaminophen ([place] 5/325) 1 tab PO Q4H PRN PRN Reason: Chronic Pain Last Admin: 01/05/18 23:04 Dose: 1 tab Albuterol (Duoneb Neb (Sherry)) 1 ampul NEB TID NEB SHERRY Carvedilol (Coreg) 3.125 mg PO BID SHERRY Last Admin: 01/06/18 09:40 Dose: 3.125 mg Ergocalciferol (Vitamin D2) 50,000 unit PO Q7D [facility] Last Admin: 01/06/18 12:25 Dose: 50,000 unit Famotidine (Pepcid) 20 mg PO DAILY [facility] Last Admin: 01/06/18 09:42 Dose: 20 mg Fluticasone/Vilanterol (Breo Ellipta 200/25 Mcg Inh) 1 puff INH DAILY [facility] Last Admin: 01/06/18 09:36 Dose: 1 puff Folic Acid (Folic Acid) 1 mg PO DAILY [facility] Last Admin: 01/06/18 09:41 Dose: 1 mg Hydromorphone HCl (Dilaudid) 2 mg PO QID [facility] Last Admin: 01/06/18 16:26 Dose: Not Given Hyoscyamine (Levbid Er) 0.375 mg PO Q12HR [facility] Last Admin: 01/06/18 09:38 Dose: 0.375 mg Piperacillin/Tazobactam/Dextrose (Zosyn 3.375 Gm Premix) 50 mls @ 100 mls/hr IV.SIG Q6H [facility] Last Admin: 01/06/18 11:33 Dose: 100 mls/hr Lactobacillus Acidophilus (Lactinex Pkt) 1 gm PO DAILY [facility] Last Admin: 01/06/18 09:42 Dose: 1 gm Magnesium Oxide (Mag-Ox) 400 mg PO DAILY [facility] Last Admin: 01/06/18 09:39 Dose: 400 mg Megestrol Acetate (Megace Liq) 400 mg PO DAILY [facility] Last Admin: 01/06/18 09:43 Dose: 400 mg Methotrexate (Rheumatrex) 15 mg PO Mo [facility] Multivitamins (Theragran) 1 tab PO DAILY [facility] Last Admin: 01/06/18 09:38 Dose: 1 tab Multivitamins/Minerals (Ocuvite With Lutein) 1 tab PO DAILY [facility] Last Admin: 01/06/18 09:40 Dose: 1 tab Nystatin (Mycostatin Cream) 1 applicatio TOPICAL DAILY [facility] Last Admin: 01/06/18 11:33 Dose: Not Given Ondansetron HCl (Zofran Odt) 8 mg PO TID [facility] Last Admin: 01/06/18 16:26 Dose: 8 mg (Budesonide [ Budesonide] 3 Mg Enteric Pellets) 3 each PO DAILY [facility] Pravastatin Sodium (Pravachol) 20 mg PO DAILY [facility] Last Admin: 01/06/18 09:40 Dose: 20 mg Prednisone (Deltasone) 20 mg PO BID [facility] Sertraline HCl (Zoloft) 25 mg PO DAILY [facility] Last Admin: 01/06/18 09:40 Dose: 25 mg Timolol Maleate (Timoptic 0.5% Drops) 1 drops EACH EYE BID [facility] Last Admin: 01/06/18 12:25 Dose: 1 drops Valacyclovir HCl (Valtrex) 1,000 mg PO Q8HR [facility] Stop: 01/07/18 22:01 Last Admin: 01/06/18 06:08 Dose: 1,000 mg Vancomycin HCl (Vancomycin Po) 500 mg PO QID [facility] Last Admin: 01/06/18 16:25 Dose: 500 mg Vitamin D (Vitamin D3) 2,000 unit PO DAILY [facility] Last Admin: 01/06/18 12:25 Dose: 2,000 unit Allergies Allergy/AdvReac Type Severity Reaction Status Date / Time drake Allergy Severe Swelling Verified 12/29/17 08:58 pravastatin Allergy Intermediate flu like Verified 12/29/17 08:58 symtoms simvastatin Allergy Intermediate flu like Verified 12/29/17 08:58 symtpoms azithromycin [From Zithromax] Allergy Anaphylaxis Verified 12/29/17 08:58 Home Medications Medication Instructions Recorded Confirmed Type budesonide 3 mg PO DAILY 11/24/17 01/05/18 History calcium carbonate [Calcium 600] 1,200 mg PO DAILY 11/24/17 01/05/18 History cholecalciferol (vitamin D3) 2,000 unit PO DAILY 11/24/17 01/05/18 History [Vitamin D3] cranberry 500 mg PO DAILY 11/24/17 01/05/18 History folic acid 1 mg PO DAILY 11/24/17 01/05/18 History hydrocodone-acetaminophen 1 tab PO Q4-6H PRN 11/24/17 01/05/18 History hyoscyamine sulfate 0.375 mg PO Q12H 11/24/17 01/05/18 History lactobacillus combination no.4 3,000 mmu cells PO DAILY 11/24/17 01/05/18 History [Probiotic] magnesium 500 mg PO DAILY 11/24/17 01/05/18 History methotrexate sodium [Trexall] 5 mg PO QWEEK 11/24/17 01/05/18 History mouthwash compounding base 227 See Protocol DAILY MDD 4 11/24/17 01/05/18 History [Mouthwash-OM] ey-wn-uake-FA-Ca carb-vit K 1 tab PO DAILY 11/24/17 01/05/18 History [Women's Multivitamin] nystatin 1 applic TOPICAL DAILY 11/24/17 01/05/18 History pitavastatin calcium [Livalo] 1 mg PO DAILY 11/24/17 01/05/18 History potassium gluconate 595 mg PO DAILY 11/24/17 01/05/18 History sertraline 25 mg PO DAILY 11/24/17 01/05/18 History timolol 1 drp OPHTHALMIC (EYE) BID 11/24/17 01/05/18 History vit C,J-Ob-xpahw-lutein-zeaxan 1 tab PO DAILY 11/24/17 01/05/18 History [PreserVision AREDS 2] ranitidine HCl [Zantac] 150 mg PO DAILY 12/16/17 01/05/18 History Breo Ellipta 200 mcg INHALATION DAILY 01/05/18 01/05/18 History Vitamin D2 50,000 unit PO WEEKLY 01/05/18 01/05/18 History Zofran 8 mg PO TID 01/05/18 01/05/18 History hydromorphone 2 mg PO QID 01/05/18 01/05/18 History Physical Exam Vital signs: Vital Signs 01/05/18 18:47 01/05/18 20:00 01/06/18 00:00 Temperature 98.4 F 97.3 F L Pulse Rate 87 96 H 97 H Respiratory Rate 20 21 22 Blood Pressure 136/60 131/52 L 169/74 H Pulse Oximetry 97 95 97 01/06/18 04:00 01/06/18 08:00 01/06/18 09:00 Temperature 97.3 F L 97.3 F L Pulse Rate 104 H 95 H 88 Respiratory Rate 21 20 Blood Pressure 123/62 104/51 L Pulse Oximetry 94 L 97 01/06/18 12:14 Temperature 98.3 F Pulse Rate 88 Respiratory Rate 22 Blood Pressure 111/58 L Pulse Oximetry 98 Intake & Output 09/11/18 09/12/18 09/12/18 18:59 06:59 18:59 Intake Total 520 / 520 Balance 520 / 520 Weight 63.503 kg 63.6 kg Intake: IV 100 / 100 Zosyn 3.375 GM Premix 50 ML @ 100 / 100 100 mls/hr IV.SIG Q6H [facility] Rx#: [id number] Oral 420 / 420 Other: # Voids 3 Date of Last Bowel Movement 01/05/18 01/05/18 # Bowel Movements 1 - Constitutional no acute distress, thin, chronically ill appearing, somnolent - Routine HEENT Exam Head: Present: normocephalic, atraumatic ENT: Present: mucous membranes moist, nares patent, external ear normal - Routine Neck Exam Present: supple, trachea midline - Routine Respiratory Exam Present: decreased breath sounds, diminished air movement Comments: To auscultation there was decreased ventilatory inspiratory effort bilaterally more so on the right lung. Lungs were clear to auscultation. - Routine Cardiovascular Exam Comments: Heart appeared to be in regular rate and rhythm with no murmurs. - Routine Abdominal Exam Present: soft - Routine Extremities Exam Comments: Lower extremities without edema. - Routine Skin Exam Present: intact, dry - Routine Neurological Exam Patient was sleeping and slightly confused for neurological examination was unable to - Detailed Neurological Exam: Coma Scale Eye Opening: To sound Verbal Response: Confused - Routine Psychiatric Exam Present: unable to assess Assessment and Plan - Assessment (1) Lung cancer Code(s): C34.90 - Malignant neoplasm of unspecified part of unspecified bronchus or lung Status: Acute - Plan Assessment: 82-year-old white female with diagnosis of metastatic lung carcinoma and large lung mass. Patient been evaluated for her therapy treatment options for local control and quality of life. Plan: I had extensive discussion with the patient and HER-2 daughters. Patient was somewhat confused and not following and sleeping therefore most of information was given to the 2 daughters. We discussed the merits of the radiation therapy and the purpose. Advised the radiation therapy will help with local control, hopefully decrease the size of the mass and improve shortness of breath, per the daughter's the patient also having difficulty swallowing due to compression of the mass and this should also be alleviated by the radiation therapy. Patient also having pain on the sternum and the radiation therapy will help for palliation in the area. She is also coughing and the radiation should help with this. We discussed the side effects and complications of her therapy. Side effects to the lung to include but limited to: Weakness and fatigue, decreased blood counts, erythema the skin, necrosis of skin, pain of the treated area, bone damage and fracture, costochondritis, lung damage, lung fibrosis, lung pneumonitis, the possibility becoming oxygen dependent, the possibility of becoming pulmonary cripple, heart damage, spinal cord damage, difficulty and pain with swallowing, esophageal strictures which may require dilation, brachial plexus damage. After thorough discussion they wanted to move forward with treatments. Patient to return tomorrow or Thursday for simulation treatment planning and consent. I discussed different treatment schedules and dose fractionation with the family. I think that the patient is frail enough that she will not be able to come in every day for treatments and therefore I suggested that we do some palliative doses of radiation therapy in between chemotherapy cycles to help with her current condition. After thorough discussion ensued everything that was explained and the daughters wanted to move forward for treatment. All her questions were answered. I have independently reviewed the PET scan as well as CT of the chest. Dr. Gonzalez thank you very much for the referral of this patient allow me to precipitate in her care. Should you have any further questions or concerns please do not hesitate to contact me.
--- NOTE | 2018-01-06 17:40 | MB ---
cc: Marcella Wolff MD DATE: 01/06/2018 HISTORY OF PRESENT ILLNESS: Ms. Dodson is an 82-year-old white female whom I first met on 11/25/2017 when she presented with what was suspected of being an MS. She was thoroughly evaluated by cardiology and was felt not to have had an ischemic event and subsequent evaluation revealed a right lung mass. 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 She also had local metastatic disease in the middle and superior mediastinal lymph nodes, as well as bony metastatic disease in the manubrium and left 3rd rib. I saw her once post-hospitalization on 12/17/2017 at which time things were stable, but she was weak and debilitated. 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 At that point she was placed on oxygen for low oxygen saturation, as well as a nebulizer. On 01/05/2018 she presented to the emergency room with increasing shortness of breath and a chest x-ray suggested that she developed increasing pleural effusion. She has been coughing with thick yellow sputum, although she has no hemoptysis. No recorded fever. At the time I saw her today she was still somewhat sedated from having had a thoracentesis attempted. She was in no distress. She was a former smoker of about 50 pack years, although she quit smoking in 1979. SOCIAL HISTORY: She is , living with her who is also a patient of mine with COPD. She has a very supportive family. No history of excessive alcohol use. For review of additional prior history, please refer to my consultation on 11/25/2017. MEDICATIONS: Reviewed in the EMR. ALLERGIES: ZITHROMAX, PRAVASTATIN. PHYSICAL EXAMINATION: GENERAL: The patient is easily aroused, in no distress, post-attempted thoracentesis. VITAL SIGNS: Afebrile, respirations 18, O2 saturation 92% on O2. Blood pressure 150/70, afebrile. NECK: No adenopathy palpable in the neck or supraclavicular region and the neck veins are flat. LUNGS: Breath sounds are diminished, particularly on the right, with some scattered wheezing. No harsh murmur. ABDOMEN: Soft. No significant edema. LABORATORY DATA: Chest x-ray on admission appears to show a large right pleural effusion, small effusion on the left, but ultrasound today, I spoke to the technologist, and there was only 50-100 mL of fluid in the right pleural space and no drainage procedure was attempted. There must be a significant atelectasis related to this mass and elevation of the right hemidiaphragm to account for the radiographic findings. The patient also has underlying COPD. We will continue her on aerosol therapy 3 times a day, oxygen. Also, start her on 20 mg of prednisone twice a day, again for the underlying COPD. She has been started on antibiotics. ASSESSMENT AND PLAN: She has an advanced primary lung malignancy. Treatment has been begun, but overall condition has been poor here recently. Further diagnostic and/or therapeutic intervention will depend on her ongoing clinical course and response to therapy. R. MD BETTE Moreno/ari , 04:38 PM , 04:51 PM BENNIE
[2018-01-07] MEDS: Timolol 0.5% Drops 5 ML Bottle EACH EYE SCH ×2 (00:26→13:29)
[2018-01-07] MEDS: predniSONE 20 MG Tablet PO SCH ×2 (00:26→09:48)
[2018-01-07] MEDS: Piperacil/Tazo 3.375 GM Premix 50 ML IV.SIG SCH ×5 (00:27→23:58)
[2018-01-07] MEDS: valACYclovir 500 MG Tab PO SCH ×3 (00:27→13:36)
[2018-01-07 07:14] LABS: Baso % (Auto) 0.2 % (0.0-2.0); Eos # (Auto) 0.1 th/mm3 (0.0-0.4); Eos % (Auto) 2.9 % (0.0-4.0); Hematocrit 33.9 % (35.0-46.0); Hemoglobin 11.1 gm/dL (11.6-15.3); Lymph # (Auto) 0.6 th/mm3 (1.0-4.8); Lymph % (Auto) 24.2 % (9.0-44.0); Mean Corpuscular HGB Conc 32.7 % (32.0-36.0); Mean Corpuscular Volume 88.9 fL (80.0-100.0); Mean Platelet Volume 8.6 fL (7.0-11.0); Mono # (Auto) 0.3 th/mm3 (0.0-0.9); Mono % (Auto) 11.4 % (0.0-8.0); Neut # (Auto) 1.6 th/mm3 (1.8-7.7); Neut % (Auto) 61.3 % (16.0-70.0); Platelet Count 140 th/mm3 (150-450); Red Blood Count 3.81 mil/mm3 (4.00-5.30); Red Cell Distribution Width 16.4 % (11.6-17.2); White Blood Count 2.7 th/mm3 (4.0-11.0)
[2018-01-07 07:32] LABS: Aspartate Aminotransferase 24 U/L (15-37); Calcium 8.6 mg/dL (8.5-10.1); Chloride 105 meq/L (98-107); Glomerular Filtration Rate 77 mL/min (>89); Potassium 3.3 meq/L (3.5-5.1); Sodium 143 meq/L (136-145)
[2018-01-07 07:38] LABS: Alanine Aminotransferase 16 U/L (10-53); Albumin 2.2 g/dL (3.4-5.0); Alkaline Phosphatase 47 U/L (45-117); Anion Gap 8 meq/L (5-15); Blood Urea Nitrogen 11 mg/dL (7-18); Carbon Dioxide 30.5 meq/L (21.0-32.0); Glucose,Random 99 mg/dL (74-106); Total Protein 6.6 g/dL (6.4-8.2)
[2018-01-07] MEDS: Vitamins A,C,E/Lutein/Minerals Tablet PO SCH (09:27)
[2018-01-07] MEDS: Sertraline 50 MG Tablet PO SCH (09:27)
[2018-01-07] MEDS: Magnesium Oxide 400 MG Tablet PO SCH (09:29)
[2018-01-07] MEDS: Famotidine 20 MG Tablet PO SCH (09:29)
[2018-01-07] MEDS: Folic Acid 1 MG Tablet PO SCH (09:29)
--- NOTE | 2018-01-07 11:01 | P.PNIM ---
Subjective Interval history: Complaint of sores of the mouth today. Plan for radiation therapy prior to discharge. Diarrhea is present but 2 episodes are present in the last 24 hours. Physical Exam Vital signs: Vital Signs 01/06/18 12:14 01/06/18 19:23 01/06/18 20:00 Temperature 98.3 F Pulse Rate 88 88 81 Respiratory Rate 22 22 22 Blood Pressure 111/58 L 136/59 L Pulse Oximetry 98 98 99 01/07/18 00:00 01/07/18 04:00 01/07/18 07:44 Temperature Pulse Rate 78 85 88 Respiratory Rate 12 Blood Pressure Pulse Oximetry 94 L 01/07/18 08:00 Temperature 97.8 F Pulse Rate 90 Respiratory Rate 18 Blood Pressure 118/79 Pulse Oximetry 98 Intake & Output 01/06/18 01/07/18 01/07/18 18:59 06:59 18:59 Intake Total 100 / 100 290 / 290 Balance 100 / 100 290 / 290 Weight 63.6 kg Intake: IV 100 / 100 50 / 50 Zosyn 3.375 GM Premix 50 ML @ 100 / 100 50 / 50 100 mls/hr IV.SIG Q6H [facility] Rx#: [id number] Oral 240 / 240 Other: # Voids 1 1 Date of Last Bowel Movement 01/05/18 # Bowel Movements 3 Narrative: GENERAL: NAD, A&Ox3 MOUTH: erythema, dry mucous membranes, small ulcers HEAD: Normocephalic. NECK: Supple, trachea midline. No lymphadenopathy. EYES: No scleral icterus. No injection or drainage. CARDIOVASCULAR: Regular rate and rhythm without murmurs, gallops, or rubs. RESPIRATORY: Breath sounds equal bilaterally. No accessory muscle use. GASTROINTESTINAL: Abdomen soft, non-tender, nondistended. MUSCULOSKELETAL: No cyanosis, or edema. SKIN: Warm and dry. NEURO: No focal neurological deficits. Results - Labs CBC & Chem 7: 01/07/18 06:18 01/07/18 06:18 Laboratory Results - last 24 hr 01/07/18 01/07/18 06:18 06:18 WBC 2.7 L RBC 3.81 L Hgb 11.1 L Hct 33.9 L MCV 88.9 MCH 29.0 MCHC 32.7 RDW 16.4 Plt Count 140 L MPV 8.6 Neut % (Auto) 61.3 Lymph % (Auto) 24.2 [place] % (Auto) 11.4 H Eos % (Auto) 2.9 Baso % (Auto) 0.2 Neut # (Auto) 1.6 L Lymph # (Auto) 0.6 L [place] # (Auto) 0.3 Eos # (Auto) 0.1 Baso # (Auto) 0.0 WBC Differential . Differential Comment Auto diff final Sodium 143 Potassium 3.3 L Chloride 105 Carbon Dioxide 30.5 Anion Gap 8 BUN 11 Creatinine 0.72 Estimated GFR 77 L Random Glucose 99 Calcium 8.6 Total Bilirubin 0.3 AST 24 ALT 16 Alkaline Phosphatase 47 Total Protein 6.6 D Albumin 2.2 L Microbiology 01/05/18 12:00 Stool Clostridium difficile GDH Antigen - Final Positive - C. difficile Antigen detected. 01/05/18 12:00 Stool Clostridium difficile Toxin Assay - Final Negative - No C. difficile Toxin A or B detected. 01/05/18 11:55 Blood - Peripheral Aerobic Blood Culture - Preliminary No growth in 1 day 01/05/18 11:55 Blood - Peripheral Anaerobic Blood Culture - Preliminary No growth in 1 day 01/05/18 11:50 Blood - Peripheral Aerobic Blood Culture - Preliminary No growth in 1 day 01/05/18 11:50 Blood - Peripheral Anaerobic Blood Culture - Preliminary No growth in 1 day - Imaging Impressions Chest Ultrasound 01/06/18 00:00 CONCLUSION: 1. Tiny right pleural effusion with insufficient volume for safe thoracentesis. Assessment and Plan - Plan 82-year-old female admitted secondary to acute pleural effusion C. difficile colitis Continue vancomycin Monitor for improvement in diarrhea Mouth sores No evidence of candidiasis Magic mouthwash Bilateral pleural effusion Stage IV lung cancer Radiation treatment planned Continue pain treatments Continue Zosyn COPD Chronic hypoxia Continue inhalers Needed duo nebs Continue oxygen supplementation History of Crohn's disease Continue Antivia Continue methotrexate Herpes Zoster-Right upper back. Valtrex continue [place] continue for pain Depression Continue on sertraline 25 mg daily Poor p.o. appetite. Continue Megace Dietitian following DVT prophylaxis No anticoagulation right now for thoracentesis SCDs
[2018-01-07] MEDS: Megestrol Acetate Liq 400 MG/10 ML UDC PO SCH (13:29)
[2018-01-07] MEDS: Nystatin/Diphenhydramine/Lidocaine Mouthwash (Adult) 120 ML Botttle SWISH-SWAL SCH ×2 (13:34→18:52)
--- NOTE | 2018-01-07 14:29 | P.DIET ---
Nutritional Evaluation Type of nutrition evaluation: initial Nutrition consult regarding: Diet Evaluation ([facility] [place] for Poor PO Intake, recently dx w/ cancer, also w/ Crohns) Objective - Diagnosis Acute Pleural Effusion - Objective % IBW: 117 (CNG=805#) Body Weight Used for Calculations: Actual (63.6kg) Energy Needs - Lower Range (kCal/kg): 25 Energy Needs - Upper Range (kCal/kg): 30 Lower Limit kCal/kg (kCals): 1,590 Upper Limit kCal/kg (kCals): 1,908 Lower Limit Protein Factor (Grams per Kg): 1.2 Upper Limit Protein Factor (Grams per Kg): 1.5 Lower Protein Needs (Protein): 76 Upper Protein Needs (Protein): 95 Dietitian Reviewed in Medical Record: Current diet, Curent medications, Intake & Output, Labs, Medical history Diet Order: Regular Objective Comments: Meds: Lactinex, Megace 400mg daily, Theragran New dx of Stage IV NSCL cancer s/p immunotherapy (Keytruda) and now on chemo ( Taxol, Carboplatin) 12/29 Port placement Assessment Assessment: Pt admitted for acute pleural effusion. She is at 117% of her IBW. Currently on a Regular diet, which is appropriate. She has c/o poor appetite in addition to wt loss prior to being admitted to the hospital. She is already on Megace 400mg daily for appetite stimulation. Pt has a new dx of stage IV non-small cell lung cancer per review of EMR. She is s/p Keytruda immunotherapy and now on Carboplatin and Taxol for chemo per Oncology visits. Pt is going to have XRT simulation possibly today. Continue appetite stimulant per MD discretion. Will add Enlive TID for added nutrition. Continue daily multivitamin/mineral. Will continue to follow and monitor pt. Recommendations: 1. Continue Regular diet. 2. Continue Megace per MD discretion. 3. Enlive TID. Dietitian to Monitor: Lab values, Supplement acceptance, Intake & Output, Diet tolerance, Weight change, PO Intake, Medical course
[2018-01-08] MEDS: predniSONE 20 MG Tablet PO SCH ×2 (00:28→08:25)
[2018-01-08] MEDS: valACYclovir 500 MG Tab PO SCH (00:28)
[2018-01-08] MEDS: Nystatin/Diphenhydramine/Lidocaine Mouthwash (Adult) 120 ML Botttle SWISH-SWAL SCH ×3 (00:33→13:08)
[2018-01-08] MEDS: Timolol 0.5% Drops 5 ML Bottle EACH EYE SCH ×2 (00:34→10:19)
[2018-01-08] MEDS: Piperacil/Tazo 3.375 GM Premix 50 ML IV.SIG SCH ×3 (05:40→15:37)
[2018-01-08] MEDS: Magnesium Oxide 400 MG Tablet PO SCH (08:25)
[2018-01-08] MEDS: Famotidine 20 MG Tablet PO SCH (08:25)
[2018-01-08] MEDS: Vitamins A,C,E/Lutein/Minerals Tablet PO SCH (08:25)
[2018-01-08] MEDS: Sertraline 50 MG Tablet PO SCH (08:26)
[2018-01-08] MEDS: Folic Acid 1 MG Tablet PO SCH (08:29)
[2018-01-08] MEDS: Megestrol Acetate Liq 400 MG/10 ML UDC PO SCH (08:29)
[2018-01-08 09:55] LABS: Baso % (Auto) 0.6 % (0.0-2.0); Eos % (Auto) 0.3 % (0.0-4.0); Hematocrit 35.2 % (35.0-46.0); Hemoglobin 11.4 gm/dL (11.6-15.3); Lymph # (Auto) 0.5 th/mm3 (1.0-4.8); Lymph % (Auto) 27.9 % (9.0-44.0); Mean Corpuscular HGB Conc 32.4 % (32.0-36.0); Mean Corpuscular Volume 89.3 fL (80.0-100.0); Mean Platelet Volume 8.4 fL (7.0-11.0); Mono # (Auto) 0.2 th/mm3 (0.0-0.9); Mono % (Auto) 10.7 % (0.0-8.0); Neut # (Auto) 1.1 th/mm3 (1.8-7.7); Neut % (Auto) 60.5 % (16.0-70.0); Platelet Count 152 th/mm3 (150-450); Red Blood Count 3.95 mil/mm3 (4.00-5.30); Red Cell Distribution Width 16.7 % (11.6-17.2); White Blood Count 1.7 th/mm3 (4.0-11.0)
--- NOTE | 2018-01-08 10:28 | P.PNIM ---
Subjective Interval history: Watery diarrhea remains. Hypokalemia secondary to diarrhea is present on last blood check, updated evaluation is pending this morning. Radiation oncology treatment pending. Physical Exam Vital signs: Vital Signs 01/07/18 12:00 01/07/18 16:00 01/07/18 19:55 Temperature 97.9 F Pulse Rate 81 84 98 H Respiratory Rate 18 18 20 Blood Pressure 117/59 L 125/57 L Pulse Oximetry 97 98 98 01/07/18 20:00 01/08/18 02:32 01/08/18 04:00 Temperature 97.5 F L Pulse Rate 84 80 89 Respiratory Rate 20 28 H Blood Pressure 146/66 H Pulse Oximetry 97 01/08/18 07:40 01/08/18 08:00 Temperature 97.6 F Pulse Rate 96 H 96 H Respiratory Rate 18 20 Blood Pressure 166/74 H Pulse Oximetry 93 L 97 Intake & Output 01/07/18 01/08/18 01/08/18 18:59 06:59 18:59 Intake Total 50 / 50 100 / 100 Balance 50 / 50 100 / 100 Intake: IV 50 / 50 100 / 100 Zosyn 3.375 GM Premix 50 ML @ 50 / 50 100 / 100 100 mls/hr IV.SIG Q6H [facility] Rx#: [id number] Narrative: GENERAL: NAD, A&Ox2 MOUTH: erythema, dry mucous membranes, small ulcers HEAD: Normocephalic. NECK: Supple, trachea midline. No lymphadenopathy. EYES: No scleral icterus. No injection or drainage. CARDIOVASCULAR: Regular rate and rhythm without murmurs, gallops, or rubs. RESPIRATORY: Breath sounds equal bilaterally. No accessory muscle use. GASTROINTESTINAL: Abdomen soft, non-tender, nondistended. MUSCULOSKELETAL: No cyanosis, or edema. SKIN: Warm and dry. NEURO: No focal neurological deficits. Results - Labs CBC & Chem 7: 01/08/18 08:35 01/07/18 06:18 Laboratory Results - last 24 hr 01/08/18 08:35 WBC 1.7 L RBC 3.95 L Hgb 11.4 L Hct 35.2 MCV 89.3 MCH 29.0 MCHC 32.4 RDW 16.7 Plt Count 152 MPV 8.4 Prelim Diff (Auto) Slide review pending Neut % (Auto) 60.5 Lymph % (Auto) 27.9 [place] % (Auto) 10.7 H Eos % (Auto) 0.3 Baso % (Auto) 0.6 Neut # (Auto) 1.1 L Lymph # (Auto) 0.5 L [place] # (Auto) 0.2 Eos # (Auto) 0.0 Baso # (Auto) 0.0 Differential Comment . Microbiology 01/05/18 11:55 Blood - Peripheral Aerobic Blood Culture - Preliminary No growth in 2 days 01/05/18 11:55 Blood - Peripheral Anaerobic Blood Culture - Preliminary No growth in 2 days 01/05/18 11:50 Blood - Peripheral Aerobic Blood Culture - Preliminary No growth in 2 days 01/05/18 11:50 Blood - Peripheral Anaerobic Blood Culture - Preliminary No growth in 2 days Assessment and Plan - Plan 82-year-old female admitted secondary to acute pleural effusion Watery diarrhea remains. Continue to monitor and treat hypokalemia which is secondary to C. difficile colitis. Radiation oncology treatment pending. C. difficile colitis Continue vancomycin Monitor for improvement in diarrhea Mouth sores No evidence of candidiasis Magic mouthwash Bilateral pleural effusion Stage IV lung cancer Radiation treatment planned Continue pain treatments Continue Zosyn COPD Chronic hypoxia Continue inhalers Needed duo nebs Continue oxygen supplementation History of Crohn's disease Continue Antivia Continue methotrexate Herpes Zoster-Right upper back. Valtrex continue [place] continue for pain Depression Continue on sertraline 25 mg daily Poor p.o. appetite. Continue Megace Dietitian following DVT prophylaxis SCDs
[2018-01-08 10:30] LABS: Albumin 2.4 g/dL (3.4-5.0); Anion Gap 10 meq/L (5-15); Blood Urea Nitrogen 9 mg/dL (7-18); Calcium 9.3 mg/dL (8.5-10.1); Carbon Dioxide 28.4 meq/L (21.0-32.0); Chloride 103 meq/L (98-107); Potassium 3.5 meq/L (3.5-5.1); Sodium 141 meq/L (136-145)
[2018-01-08 10:37] LABS: Alanine Aminotransferase 18 U/L (10-53); Alkaline Phosphatase 52 U/L (45-117); Aspartate Aminotransferase 32 U/L (15-37); Glomerular Filtration Rate 77 mL/min (>89); Glucose,Random 166 mg/dL (74-106)
--- NOTE | 2018-01-08 10:38 | P.PNIM ---
Subjective Interval history: Watery diarrhea remains. Hypokalemia secondary to diarrhea is present on last blood check, updated evaluation is pending this morning. Radiation oncology treatment pending. Physical Exam Vital signs: Vital Signs 01/07/18 12:00 01/07/18 16:00 01/07/18 19:55 Temperature 97.9 F Pulse Rate 81 84 98 H Respiratory Rate 18 18 20 Blood Pressure 117/59 L 125/57 L Pulse Oximetry 97 98 98 01/07/18 20:00 01/08/18 02:32 01/08/18 04:00 Temperature 97.5 F L Pulse Rate 84 80 89 Respiratory Rate 20 28 H Blood Pressure 146/66 H Pulse Oximetry 97 01/08/18 07:40 01/08/18 08:00 Temperature 97.6 F Pulse Rate 96 H 96 H Respiratory Rate 18 20 Blood Pressure 166/74 H Pulse Oximetry 93 L 97 Intake & Output 01/07/18 01/08/18 01/08/18 18:59 06:59 18:59 Intake Total 50 / 50 100 / 100 Balance 50 / 50 100 / 100 Intake: IV 50 / 50 100 / 100 Zosyn 3.375 GM Premix 50 ML @ 50 / 50 100 / 100 100 mls/hr IV.SIG Q6H [facility] Rx#: [id number] Narrative: GENERAL: NAD, A&Ox2 MOUTH: erythema, dry mucous membranes, small ulcers HEAD: Normocephalic. NECK: Supple, trachea midline. No lymphadenopathy. EYES: No scleral icterus. No injection or drainage. CARDIOVASCULAR: Regular rate and rhythm without murmurs, gallops, or rubs. RESPIRATORY: Breath sounds equal bilaterally. No accessory muscle use. GASTROINTESTINAL: Abdomen soft, non-tender, nondistended. MUSCULOSKELETAL: No cyanosis, or edema. SKIN: Warm and dry. NEURO: No focal neurological deficits. Results - Labs CBC & Chem 7: 01/08/18 08:35 01/08/18 08:35 Laboratory Results - last 24 hr 01/08/18 01/08/18 08:35 08:35 WBC 1.7 L RBC 3.95 L Hgb 11.4 L Hct 35.2 MCV 89.3 MCH 29.0 MCHC 32.4 RDW 16.7 Plt Count 152 MPV 8.4 Prelim Diff (Auto) Slide review pending Neut % (Auto) 60.5 Lymph % (Auto) 27.9 [place] % (Auto) 10.7 H Eos % (Auto) 0.3 Baso % (Auto) 0.6 Neut # (Auto) 1.1 L Lymph # (Auto) 0.5 L [place] # (Auto) 0.2 Eos # (Auto) 0.0 Baso # (Auto) 0.0 Differential Comment . Sodium 141 Potassium 3.5 Chloride 103 Carbon Dioxide 28.4 Anion Gap 10 BUN 9 Calcium 9.3 Albumin 2.4 L Microbiology 01/05/18 11:55 Blood - Peripheral Aerobic Blood Culture - Preliminary No growth in 2 days 01/05/18 11:55 Blood - Peripheral Anaerobic Blood Culture - Preliminary No growth in 2 days 01/05/18 11:50 Blood - Peripheral Aerobic Blood Culture - Preliminary No growth in 2 days 01/05/18 11:50 Blood - Peripheral Anaerobic Blood Culture - Preliminary No growth in 2 days Assessment and Plan - Assessment (1) Immunocompromised Code(s): D84.9 - Immunodeficiency, unspecified Status: Acute (2) Community acquired pneumonia Code(s): J18.9 - Pneumonia, unspecified organism Status: Acute (3) Hypokalemia Code(s): E87.6 - Hypokalemia Status: Acute (4) C. difficile colitis Code(s): A04.72 - Enterocolitis due to Clostridium difficile, not specified as recurrent Status: Acute (5) Lung cancer Code(s): C34.90 - Malignant neoplasm of unspecified part of unspecified bronchus or lung Status: Acute - Plan 82-year-old female admitted secondary to acute pleural effusion Watery diarrhea remains. Continue to monitor and treat hypokalemia which is secondary to C. difficile colitis. Radiation oncology treatment pending. C. difficile colitis Diarrhea Continue vancomycin Monitor for improvement in diarrhea Hypokalemia Secondary to C. difficile colitis and diarrhea Continue to monitor Replace as needed Mouth sores No evidence of candidiasis Magic mouthwash Bilateral pleural effusion Stage IV lung cancer Active Chemotherapy Recipient Active Radiation Recipient Immunocompromise Community acquired pneumonia Pulmonary effusions are small, no thoracentesis needed Unable to determine if empyema is present radiation treatment planned Continue pain treatments Continue Zosyn COPD Chronic hypoxia Continue inhalers Needed duo nebs Continue oxygen supplementation History of Crohn's disease Continue Antivia Continue methotrexate Herpes Zoster-Right upper back. Valtrex continue [place] continue for pain Depression Continue on sertraline 25 mg daily Poor p.o. appetite. Continue Megace Dietitian following DVT prophylaxis SCDs
[2018-01-08 10:39] LABS: Eosinophils 1 % (0-4); Lymphocytes 21 % (9-44); Monocytes 6 % (0-8); Tallied Nucleated RBC 1 (0-0)
[2018-01-08 10:40] LABS: Platelet Morphology Normal (Normal)
--- NOTE | 2018-01-08 16:20 | P.DS ---
Date of admission: 01/05/18 13:52 Primary care physician: Josiah Will MD Brief History from admission: Patient is a very pleasant 82-year-old female, history of Crohn's colitis, with known history of COPD O2 dependent , recently diagnosed stage IV lung cancerand just completed immunotherapy in December 31, and undergoing chemotherapy. Patient is in the process of getting simulation to start radiation therapy. she is followed by Dr. Gonzalez and Dr. Andrea Wolff. About 2-3 prior to admission patient complained of shortness of breath, easy fatigability. Patient daughter also states that patient was coughing and bringing up heavy, thick dark yellowish sputum. No hemoptysis. There was no fever reported. Patient also complained of poor p.o. appetite and weight loss. Persistence of symptoms prompted consult to ER and was noted to have bilateral pleural effusion larger on the right moderate on the left. Patient admitted for further evaluation and management. DS: Diagnosis - Discharge Diagnosis (1) Immunocompromised Status: Acute (2) Community acquired pneumonia Status: Acute (3) Hypokalemia Status: Acute (4) C. difficile colitis Status: Acute (5) Lung cancer Status: Acute DS: Medications - Discharge Medications Prescriptions: Lactobacillus acidophilus 500 mmu cells PO TID #30 cap levofloxacin [Levaquin] 500 mg PO DAILY #7 tab vancomycin 500 mg PO QID #56 ea DS: Summary Hospital Course: Ms. Dodson is an 82-year-old female. At baseline she has stage IV lung cancer. She was admitted secondary to pleural effusions discovered as an outpatient. These pleural effusions more intended to have a thoracentesis for treatment but one patient had an ultrasound with interventional radiology the volume was found to be lower than expected and thoracentesis is not recommended. Upon arrival she is also found to have evidence of pneumonia. This patient is on chemotherapy and in immunocompromise state. She has been treated her with Zosyn and has improvement. Additionally she had diarrhea which was thought to be of her Crohn's disease but she tested positive for C. difficile. Treatment is initiated in here. Her diarrhea has not resolved. She is status post radiation oncology mapping. Today she is feeling better and has improvement in her strength. Family and patient requests discharge. Presently she is medically stabilized and is safe for discharge on continuation of Levaquin for treatment of pneumonia with probiotics and vancomycin p.o. for treatment of C. difficile. Discharge home today. Resume other treatments and continue to follow with oncology as an outpatient. - Time Spent with Patient Total time spent providing and/or coordinating discharge services: Less than 30 minutes - Quality: VTE Deep Vein Thrombosis/Pulmonary Embolism Present on Admission: No Exam Vital signs: Vital Signs 01/07/18 19:55 01/07/18 20:00 01/08/18 02:32 Temperature 97.5 F L Pulse Rate 98 H 84 80 Respiratory Rate 20 20 28 H Blood Pressure 146/66 H Pulse Oximetry 98 97 01/08/18 04:00 01/08/18 07:40 01/08/18 08:00 Temperature 97.6 F Pulse Rate 89 96 H 96 H Respiratory Rate 18 20 Blood Pressure 166/74 H Pulse Oximetry 93 L 97 01/08/18 12:00 Temperature 97.5 F L Pulse Rate 87 Respiratory Rate 21 Blood Pressure 128/59 L Pulse Oximetry 94 L Intake & Output 01/07/18 01/08/18 01/08/18 18:59 06:59 18:59 Intake Total 50 / 50 100 / 100 50 / 50 Balance 50 / 50 100 / 100 50 / 50 Intake: IV 50 / 50 100 / 100 50 / 50 Zosyn 3.375 GM Premix 50 ML @ 50 / 50 100 / 100 50 / 50 100 mls/hr IV.SIG Q6H [facility] Rx#: [id number] Results Procedures completed during hospitalization: Radiation oncology mapping Labs on day of discharge: Labs from last 24 hours 01/08/18 01/08/18 08:35 08:35 WBC 1.7 L RBC 3.95 L Hgb 11.4 L Hct 35.2 MCV 89.3 MCH 29.0 MCHC 32.4 RDW 16.7 Plt Count 152 MPV 8.4 Prelim Diff (Auto) Slide review pending Neut % (Auto) 60.5 Lymph % (Auto) 27.9 [place] % (Auto) 10.7 H Eos % (Auto) 0.3 Baso % (Auto) 0.6 Neut # (Auto) 1.1 L Lymph # (Auto) 0.5 L [place] # (Auto) 0.2 Eos # (Auto) 0.0 Baso # (Auto) 0.0 WBC Differential Manual diff final Seg Neuts % (Manual) 69 Band Neuts % (Manual) 3 Lymphocytes % (Manual) 21 Monocytes % (Manual) 6 Eosinophils % (Manual) 1 Abs Neuts (Manual) 1.2 L Nucleated RBCs/100 WBC 1 H Differential Comment . Platelet Estimate Low L Platelet Morphology Normal Sodium 141 Potassium 3.5 Chloride 103 Carbon Dioxide 28.4 Anion Gap 10 BUN 9 Creatinine 0.72 Estimated GFR 77 L Random Glucose 166 H Calcium 9.3 Total Bilirubin 0.3 AST 32 ALT 18 Alkaline Phosphatase 52 Total Protein 7.0 Albumin 2.4 L Preliminary micro results at discharge 01/05/18 11:55 Aerobic Blood Culture - Preliminary Blood - Peripheral No growth in 3 days Anaerobic Blood Culture - Preliminary No growth in 3 days 01/05/18 11:50 Aerobic Blood Culture - Preliminary Blood - Peripheral No growth in 3 days Anaerobic Blood Culture - Preliminary No growth in 3 days - Impressions ITS Impressions Chest X-Ray 01/05/18 11:32 CONCLUSION: 1. Large pleural effusion on the right. Moderate effusion on the left. These have significantly worsened when compared to previous of 12/16/2017. 2. Known right hilar mass. Chest Ultrasound 01/06/18 00:00 CONCLUSION: 1. Tiny right pleural effusion with insufficient volume for safe thoracentesis. Discharge Plan - Discharge Disposition Patient Disposition: Discharge Home - Discharge Condition Condition: Stable - Discharge Order Discharge Orders: Discharge Order (Routine); Ordered 01/08/18 Ordered By: Chico Serrano - Discharge Details Anticipated Discharge Date: 01/08/18 - Physicians Team Primary Care Provider: Josiah Will Attending Provider: [place] Serrano Other Providers: Luis Daniel Wolff MD ; [email or web address],Insurance ; Travis Enciso MD
[2018-01-08 16:59] VITALS: BP 147/78; PULSE 71; RESP 20; TEMP 97.4; O2SAT 93
[2018-01-11] MEDS ORDERED: METHOTREXATE SODIUM 5 MG PO SCH (09:00)
== END 2018-01-08 18:28 | disposition home or self-care (01) ==
LOC: NEPE 11:11 → NEDA 13:52 → N04 18:10
PROVIDERS: ADMIT Hospitalist; ATTEND Hospitalist
DX: J18.9 Pneumonia, unspecified organism; Z99.81 Dependence on supplemental oxygen; C34.90 Malignant neoplasm of unspecified part of unspecified bronchus or lung; R09.02 Hypoxemia; K50.10 Crohn's disease of large intestine without complications; M85.80 Other specified disorders of bone density and structure, unspecified site; C79.51 Secondary malignant neoplasm of bone; B02.9 Zoster without complications; E78.00 Pure hypercholesterolemia, unspecified; J90 Pleural effusion, not elsewhere classified; C78.01 Secondary malignant neoplasm of right lung; M19.90 Unspecified osteoarthritis, unspecified site; K21.9 Gastro-esophageal reflux disease without esophagitis; R63.4 Abnormal weight loss; Z87.891 Personal history of nicotine dependence; Z79.899 Other long term (current) drug therapy; D84.9 Immunodeficiency, unspecified; F32.9 Major depressive disorder, single episode, unspecified; E87.6 Hypokalemia; J44.0 Chronic obstructive pulmonary disease with (acute) lower respiratory infection; A04.72 Enterocolitis due to Clostridium difficile, not specified as recurrent

== ENCOUNTER 2018-03-09 11:55 | Inpatient (IN) ==
--- NOTE | 2018-03-09 13:15 | ED ---
HPI General Chief complaint: Respiratory Symptoms Stated complaint: Medical Time Seen by Provider: 03/09/18 12:37 Source: patient Mode of arrival: EMS Limitations: other (Clinical acuity) History of Present Illness HPI narrative: 82-year-old female presents with shortness of breath over the past couple of days and increased confusion. 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 She received chemotherapy approximately 3 weeks ago and is supposed to get chemotherapy tomorrow. Dr. Gonzalez is her oncologist. She has been having a good response to chemotherapy with the tumor shrinking per her daughter. Her daughter as well as another daughter help take care of her and are her power of state's attorney's. Patient has not had any other complaints other than an episode of vomiting yesterday which could have been related to trying to take her pills. History is limited from patient herself at this time and history is obtained from the daughter and this limits history. Related Data Home Medications Medication Instructions Recorded Confirmed budesonide 3 mg PO Q8HR 11/24/17 03/09/18 folic acid 1 mg PO DAILY 11/24/17 03/09/18 hydrocodone-acetaminophen 1 tab PO Q4-6H PRN 11/24/17 03/09/18 hyoscyamine sulfate 0.375 mg PO Q12H PRN 11/24/17 03/09/18 methotrexate sodium [Trexall] 15 mg PO QWEEK 11/24/17 03/09/18 nystatin 1 applic TOPICAL DAILY PRN 11/24/17 03/09/18 potassium gluconate 595 mg PO DAILY 11/24/17 03/09/18 timolol 1 drp EACH EYE HS 11/24/17 03/09/18 vit C,X-Gf-qwnig-lutein-zeaxan 1 tab PO DAILY 11/24/17 03/09/18 [PreserVision AREDS-2] ranitidine HCl [Zantac] 150 mg PO DAILY 12/16/17 03/09/18 Saccharomyces boulardii [Florastor] 250 mg PO DAILY 03/09/18 03/09/18 carboplatin 300 mg/m2 IV Q3W 03/09/18 03/09/18 ciprofloxacin-dexamethasone 2 drp OTIC (EAR) BID 03/09/18 03/09/18 [Ciprodex] cyanocobalamin (vitamin B-12) 1,000 mcg PO DAILY 03/09/18 03/09/18 [Vitamin B-12] ergocalciferol (vitamin D2) 50,000 unit PO QWEEK 03/09/18 03/09/18 [Vitamin D2] fluconazole 200 mg PO DAILY 03/09/18 03/09/18 fluticasone-vilanterol [Breo 1 inh INHALATION DAILY 03/09/18 03/09/18 Ellipta] hydromorphone 2 mg PO Q6H PRN 03/09/18 03/09/18 ipratropium-albuterol 3 ml INHALATION Q8H 03/09/18 03/09/18 megestrol 400 mg PO DAILY 03/09/18 03/09/18 mirtazapine 15 mg PO HS 03/09/18 03/09/18 ondansetron HCl [Zofran] 8 mg PO TID PRN 03/09/18 03/09/18 paclitaxel 5.63 mg/m2/hr IV Q3W 03/09/18 03/09/18 sertraline 50 mg PO DAILY 03/09/18 03/09/18 vedolizumab [Entyvio] 300 mg IV Q6W 03/09/18 03/09/18 Previous Rx's Medication Instructions Recorded carvedilol [Coreg] 3.125 mg PO BID #60 tab 11/26/17 nitroglycerin [Nitrostat] 0.4 mg SUBLINGUAL Q5M PRN #100 tab 11/26/17 Allergies Allergy/AdvReac Type Severity Reaction Status Date / Time drake Allergy Severe Swelling Verified 03/09/18 12:19 pravastatin Allergy Intermediate flu like Verified 03/09/18 12:19 symtoms simvastatin Allergy Intermediate flu like Verified 03/09/18 12:19 symtpoms azithromycin [From Zithromax] Allergy Anaphylaxis Verified 03/09/18 12:19 Review of Systems ROS: all other systems reviewed are negative [facility] Medical History Medical History Lung cancer (Acute) History of hysterectomy (Acute) Macular degeneration (Acute) Chronic pain (Acute) Arthritis (Acute) Dry mouth (Acute) High cholesterol (Acute) Depression (Acute) Osteopenia (Acute) Glaucoma (Acute) Colon spasm (Acute) GERD (gastroesophageal reflux disease) (Acute) Crohn disease (Acute) Failed spinal cord stimulator (Acute) Surgical History Surgical History S/P STEFANIE (total abdominal hysterectomy) (Acute) Corneal transplant status (Acute) Family History Family History Other History of cancer of gall bladder Leukemia Social History Social History Substance History: No History of Abuse Second Hand Smoke Exposure: No Smoking Status: Former smoker How Often Do You Have a Drink Containing Alcohol: Never Recent Travel in [place] within the Last 8 Weeks: No Recent Out of Country Travel within the Last 8 Weeks: No Exam Narrative Exam Narrative: GENERAL: 82 y/o female who appears short of breath SKIN: Focused skin assessment warm/dry. HEAD: Atraumatic. Normocephalic. EYES: Pupils equal and round. No scleral icterus. No injection or drainage. ENT: No nasal bleeding or discharge. Mucous membranes pink and moist. NECK: Trachea midline. cardiovascular: Regular rate and rhythm RESPIRATORY: Increased respiratory effort noted. Decreased breath sounds to right mid and lower lung GASTROINTESTINAL: Abdomen soft, non-tender, nondistended. MUSCULOSKELETAL: No obvious deformities. No clubbing. No cyanosis. No edema. NEUROLOGICAL: Awake. Motor grossly within normal limits. Normal speech. Course Reevaluation(s) Reevaluation #1: Patient and daughter updated. Agree to thoracentesis and admit Reevaluation #2: Ultrasound team says there is about 50 cc by ultrasound and not enough to drain so we will check CTA chest to better visualize the area and rule out blood clot Consultations Consultation #1: dr to agrees to full admit, cta pulm pending Initial Documented Vital Signs Pulse Rate 117 H 03/09/18 12:16 Respiratory Rate 24 03/09/18 12:16 Pulse Oximetry 91 L 03/09/18 12:16 Last Documented Vital Signs Pulse Rate 108 H 03/09/18 13:07 Respiratory Rate 26 H 03/09/18 13:07 Blood Pressure 107/50 L 03/09/18 13:07 Pulse Oximetry 97 03/09/18 13:07 Medical Decision Making MDM Narrative Medical decision making narrative: Patient likely has large pleural effusion given exam and symptoms. Will check blood work and chest x-ray and reevaluate Medical Screen Exam Complete: Yes Emergency Medical Condition: Yes Differential Diagnosis Differential Diagnosis: Pleural effusion, anemia, renal failure, pneumonia, cardiac Lab Data Lab results reviewed: Yes I reviewed the patient's lab results. Result diagrams: 03/09/18 13:10 03/09/18 13:10 Lab Results 03/09/18 03/09/18 03/09/18 Range/Units 13:10 13:10 13:10 WBC 7.5 (4.0-11.0) th/mm3 RBC 3.31 L (4.00-5.30) mil/mm3 Hgb 10.1 L (11.6-15.3) gm/dL Hct 31.7 L (35.0-46.0) % MCV 95.7 (80.0-100.0) fL MCH 30.5 (27.0-34.0) pg MCHC 31.9 L (32.0-36.0) % RDW 22.0 H (11.6-17.2) % Plt Count 210 D (150-450) th/mm3 MPV 8.3 (7.0-11.0) fL Neut % (Auto) 91.7 H (16.0-70.0) % Lymph % (Auto) 3.6 L (9.0-44.0) % Woods % (Auto) 4.4 (0.0-8.0) % Eos % (Auto) 0.1 (0.0-4.0) % Baso % (Auto) 0.2 (0.0-2.0) % Neut # (Auto) 6.9 (1.8-7.7) th/mm3 Lymph # (Auto) 0.3 L (1.0-4.8) th/mm3 Woods # (Auto) 0.3 (0.0-0.9) th/mm3 Eos # (Auto) 0.0 (0.0-0.4) th/mm3 Baso # (Auto) 0.0 (0.0-0.2) th/mm3 WBC Differential . Differential Comment Auto diff final PT 11.1 (9.8-11.6) sec INR 1.1 Ratio APTT 26.1 (23.4-31.7) sec Sodium 145 (136-145) meq/L Potassium 3.6 (3.5-5.1) meq/L Chloride 108 H (98-107) meq/L Carbon Dioxide 24.7 (21.0-32.0) meq/L Anion Gap 12 (5-15) meq/L BUN 19 H (7-18) mg/dL Creatinine 1.23 H (0.50-1.00) mg/dL Estimated GFR 42 L (>89) mL/min Random Glucose 199 H (74-106) mg/dL Lactic Acid (0.4-2.0) mmol/L Calcium 9.0 (8.5-10.1) mg/dL Magnesium 1.9 (1.5-2.5) mg/dL Total Bilirubin 0.3 (0.2-1.0) mg/dL AST 23 (15-37) U/L ALT 23 (10-53) U/L Alkaline Phosphatase 50 (45-117) U/L Total Creatine Kinase 53 (26-192) U/L Troponin I Less than 0.02 L (0.02-0.05) ng/mL B-Natriuretic Peptide (0-100) pg/mL Total Protein 7.0 (6.4-8.2) g/dL Albumin 2.6 L (3.4-5.0) g/dL 03/09/18 03/09/18 Range/Units 13:10 13:10 WBC (4.0-11.0) th/mm3 RBC (4.00-5.30) mil/mm3 Hgb (11.6-15.3) gm/dL Hct (35.0-46.0) % MCV (80.0-100.0) fL MCH (27.0-34.0) pg MCHC (32.0-36.0) % RDW (11.6-17.2) % Plt Count (150-450) th/mm3 MPV (7.0-11.0) fL Neut % (Auto) (16.0-70.0) % Lymph % (Auto) (9.0-44.0) % Woods % (Auto) (0.0-8.0) % Eos % (Auto) (0.0-4.0) % Baso % (Auto) (0.0-2.0) % Neut # (Auto) (1.8-7.7) th/mm3 Lymph # (Auto) (1.0-4.8) th/mm3 Woods # (Auto) (0.0-0.9) th/mm3 Eos # (Auto) (0.0-0.4) th/mm3 Baso # (Auto) (0.0-0.2) th/mm3 WBC Differential Differential Comment PT (9.8-11.6) sec INR Ratio APTT (23.4-31.7) sec Sodium (136-145) meq/L Potassium (3.5-5.1) meq/L Chloride (98-107) meq/L Carbon Dioxide (21.0-32.0) meq/L Anion Gap (5-15) meq/L BUN (7-18) mg/dL Creatinine (0.50-1.00) mg/dL Estimated GFR (>89) mL/min Random Glucose (74-106) mg/dL Lactic Acid 3.4 H (0.4-2.0) mmol/L Calcium (8.5-10.1) mg/dL Magnesium (1.5-2.5) mg/dL Total Bilirubin (0.2-1.0) mg/dL AST (15-37) U/L ALT (10-53) U/L Alkaline Phosphatase (45-117) U/L Total Creatine Kinase (26-192) U/L Troponin I (0.02-0.05) ng/mL B-Natriuretic Peptide 177 H (0-100) pg/mL Total Protein (6.4-8.2) g/dL Albumin (3.4-5.0) g/dL Imaging Data Attestation: I personally reviewed and interpreted this imaging study as follows : Radiologist's impression: Chest X-Ray 03/09/18 12:38 CONCLUSION: Right-sided pleural effusion and right hilar mass similar in appearance to previous study of 01/05/2018. Chest Ultrasound 03/09/18 13:45 CONCLUSION: 1. There is only very minimal fluid at the right lung base. There is significant elevation of the right hemidiaphragm. Discharge Plan Discharge Disposition Patient Disposition: 30 Still Patient Discharge Details Diagnosis: Pleural effusion, Lung cancer, Breath shortness Physicians Team ED Provider: Clare Piña Primary Care Provider: Josiah Will Attending Provider: Ariel To Discharge Interventions Interventions: Vital Signs Last Done: 03/09/18 13:07 Status ED Status: Admitted Patient
[2018-03-09 13:31] LABS: Baso % (Auto) 0.2 % (0.0-2.0); Eos % (Auto) 0.1 % (0.0-4.0); Hematocrit 31.7 % (35.0-46.0); Hemoglobin 10.1 gm/dL (11.6-15.3); Lymph # (Auto) 0.3 th/mm3 (1.0-4.8); Lymph % (Auto) 3.6 % (9.0-44.0); Mean Corpuscular HGB Conc 31.9 % (32.0-36.0); Mean Corpuscular Hemoglobin 30.5 pg (27.0-34.0); Mean Corpuscular Volume 95.7 fL (80.0-100.0); Mean Platelet Volume 8.3 fL (7.0-11.0); Mono # (Auto) 0.3 th/mm3 (0.0-0.9); Mono % (Auto) 4.4 % (0.0-8.0); Neut # (Auto) 6.9 th/mm3 (1.8-7.7); Neut % (Auto) 91.7 % (16.0-70.0); Platelet Count 210 th/mm3 (150-450); Red Blood Count 3.31 mil/mm3 (4.00-5.30); White Blood Count 7.5 th/mm3 (4.0-11.0)
[2018-03-09 13:49] LABS: Activated Partial Thrombo Time 26.1 sec (23.4-31.7); INR 1.1 Ratio; Prothrombin Time 11.1 sec (9.8-11.6)
[2018-03-09 13:51] LABS: Albumin 2.6 g/dL (3.4-5.0); Anion Gap 12 meq/L (5-15); Aspartate Aminotransferase 23 U/L (15-37); Blood Urea Nitrogen 19 mg/dL (7-18); Carbon Dioxide 24.7 meq/L (21.0-32.0); Chloride 108 meq/L (98-107); Glomerular Filtration Rate 42 mL/min (>89); Glucose,Random 199 mg/dL (74-106); Magnesium 1.9 mg/dL (1.5-2.5); Potassium 3.6 meq/L (3.5-5.1); Sodium 145 meq/L (136-145)
[2018-03-09 13:56] LABS: Alanine Aminotransferase 23 U/L (10-53); Alkaline Phosphatase 50 U/L (45-117)
[2018-03-09 14:02] LABS: Creatine Kinase 53 U/L (26-192)
--- NOTE | 2018-03-09 14:20 | XR ---
EXAM DATE: 03/09/2018 1:04 PM EST AGE/SEX: 82 years / Female INDICATIONS: Shortness of breath. CLINICAL DATA: This is the patient's initial encounter. Patient reports that signs and symptoms have been present for 1 day and indicates a pain score of 0/10. MEDICAL/SURGICAL HISTORY: . Crohn's disease. Gastroesophageal reflux disease. Hypercholesterole kira. Colon spasm. Failed spinal cord stimulator. Lung cancer. Macular degeneration. Osteopenia. Hys terectomy. Infusaport. COMPARISON: [facility] [place], CHEST 1V SINGLE AP, 01/05/2018. . FINDINGS: The examination demonstrates a right pleural effusion and a sizable right hilar mass. There is an Inf use-a-Port in satisfactory position. The left lung is clear. The heart is mildly enlarged. The bony s tructures are intact. CONCLUSION: Right-sided pleural effusion and right hilar mass similar in appearance to previous study of 8. Electronically signed by: Chico Peña MD 03/09/2018 2:18 PM EST
[2018-03-09] MEDS ORDERED: Acetaminophen 325 MG Tablet PO PRN (14:24)
--- NOTE | 2018-03-09 14:40 | US ---
EXAM DATE: 03/09/2018 2:24 PM EST AGE/SEX: 82 years / Female INDICATIONS: Right Pleural effusion. CLINICAL DATA: This is the patient's subsequent encounter. Patient reports that signs and symptoms h ave been present for 1 day and indicates a pain score of 4/10. MEDICAL/SURGICAL HISTORY: Arthritis. Chronic pain. Crohn's disease. Depression. Dry mouth. Fail ed spinal cord stimulator. GERD. Glaucoma. High cholesterol. Lung cancer. Macular degeneration. Osteo penia. Hysterectomy. Corneal transplant status. COMPARISON: [facility], CT CHEST W/ CONTRAST, 03/01/2018. . MEASUREMENTS: Skin To Parietal Pleura:__inadequate fluid cm Skin To Max Safe Depth:__inadequate fluid cm Estimated Fluid Volume:__37 cc Fluid Composition:__simple FINDINGS: No marking was performed. CONCLUSION: 1. There is only very minimal fluid at the right lung base. There is significant elevation of the ri ght hemidiaphragm. Electronically signed by: Chico Peña MD 03/09/2018 2:38 PM EST
--- NOTE | 2018-03-09 15:49 | CT ---
EXAM DATE: 03/09/2018 3:44 PM EST AGE/SEX: 82 years / Female INDICATIONS: Shortness of breath. CLINICAL DATA: This is the patient's initial encounter. Patient reports that signs and symptoms have been present for 1 day and indicates a pain score of 2/10. MEDICAL/SURGICAL HISTORY: Carcinoma, lung. Gastroesophageal reflux disease. Chrohns, Pleural eff. Hysterectomy. RADIATION DOSE: 21.54 CTDI (mGy) COMPARISON: [facility], CT CHEST W/ CONTRAST, 03/01/2018. . TECHNIQUE: Volumetric scanning was performed using a multi-row detector CT scanner during bolus infu ric of 75 ml Omnipaque 350 (iohexol) nonionic water-soluble contrast as a single exam dose. The erin a was post processed with a variety of visualization algorithms including full volume maximum intensi ty projection and sliding thin slab reformation. Using automated exposure control and adjustment of the mA and/or kV according to patient size, radiation dose was kept as low as reasonably achievable t o obtain optimal diagnostic quality images. DICOM format image data is available electronically for review and comparison. FINDINGS: The examination is of good diagnostic quality. No pulmonary embolus is identified. The examination demonstrates a large area of consolidation involving the right middle and right lower lobe. There is fluid loculated within the minor fissure on the right as well. There is minimal right -sided pleural effusion. There is elevation of the right hemidiaphragm. The heart is mildly enlarged. There is soft tissue within the right [place] presumably representing remn ants of the patient's known malignancy in this area. The left lung is clear. The visualized bony structures are grossly intact. The limited portions of upper abdomen visualized demonstrate calcified gallstones within the gallblad donna. CONCLUSION: 1. No pulmonary embolus identified. 2. There is soft tissue in the right [place] presumably representing remnants of the patient's known ma lignancy. There is extensive atelectasis of the right middle and right lower lobe with minimal effusi on. 3. There is elevation of the right hemidiaphragm. 4. There is minimal pericardial effusion. Electronically signed by: Chico Peña MD 03/09/2018 3:47 PM EST
--- NOTE | 2018-03-09 16:09 | P.HPIM ---
History of Present Illness Primary Care Physician: Josiah Will MD Chief Complaint: Shortness of breath History of Present Illness: The patient is an 82-year-old female with a past medical history of lung cancer and COPD who is presenting to the hospital with worsening shortness of breath. The patient was recently discharged from the hospital in December. She is currently on chemotherapy and radiation therapy. She says her last chemotherapy was on February 10 and her last radiation treatment was on February 05. She said she had a CAT scan of her chest last week which showed a decrease in size of the mass. She was unable to go for chemotherapy last Thursday because her blood counts were low and she says she is scheduled for chemotherapy tomorrow. She is on home oxygen, 2 L chronically. The patient says she started to feel poorly on Thursday. She has had increased work of breathing. She has clear phlegm production. She denies any fevers but has had hot flashes and chills. Her home health care nurse came to her house today and was worried that she had fluid around the lungs and a fast heart rate. Inpatient Certification: I certify that the inpatient services were ordered in accordance with Medicare regulations governing the order. This includes certification that hospital inpatient services are reasonable and necessary and in the case of services not specified as inpatient-only under 42 CFR 419.22(n), that they are appropriately provided as inpatient services in accordance to with the 2-midnight benchmark under 43 CFR 412.3(e) Estimated Total Length of Stay (Days): 2 Plans for Post Hospital Care: Not yet determined Review of Systems All other systems reviewed negative except as stated in HPI [facility] - History History Provided By: Patient, Family Member - Medical History Medical History: Medical History (Last Updated 03/09/18 @ 16:17 by Ariel Perez DO) Lung cancer (Acute) History of hysterectomy (Acute) Macular degeneration (Acute) Chronic pain (Acute) Arthritis (Acute) Dry mouth (Acute) High cholesterol (Acute) Depression (Acute) Osteopenia (Acute) Glaucoma (Acute) Colon spasm (Acute) GERD (gastroesophageal reflux disease) (Acute) Crohn disease (Acute) Shingles Failed spinal cord stimulator - Surgical History Surgical History: Surgical History (Last Reviewed 03/09/18 @ 16:17 by Ariel Perez DO) S/P STEFANIE (total abdominal hysterectomy) (Acute) Corneal transplant status (Acute) - Family History Family History: Family History (Last Reviewed 03/09/18 @ 16:17 by Ariel Perez DO) Other History of cancer of gall bladder Leukemia - Social History I have reviewed the patient's Social History: Yes - Tobacco History Second Hand Smoke Exposure: No Smoking Status: Former smoker - Alcohol History How Often Do You Have a Drink Containing Alcohol: Never - Substance Use History Substance History: No History of Abuse - Travel History Recent Travel in the [place] Within the Last 8 Weeks: No Recent Travel Out of the Country Within the Last 8 Weeks: No - Immunization History Tetanus Immunization: Unsure Medications and Allergies Active Medications: Active Medications Acetaminophen (Tylenol) 650 mg PO Q4H PRN PRN Reason: Temp > 100.4, pain 1-2 Albuterol (Duoneb Neb (Prn)) 1 ampul NEB Q2HR NEB PRN PRN Reason: DYSPNEA Carvedilol (Coreg) 3.125 mg PO BID [facility] Cyanocobalamin (Vitamin B12) 1,000 mcg PO DAILY [facility] Enoxaparin Sodium (Lovenox Inj) 30 mg SQ Q24H JENNIFER Famotidine (Pepcid) 20 mg PO BID [facility] Fluconazole (Diflucan) 200 mg PO DAILY [facility] Fluticasone/Vilanterol (Breo Ellipta 200/25 Mcg Inh) 1 puff INH DAILY [facility] Folic Acid (Folic Acid) 1 mg PO DAILY [facility] Hydromorphone HCl (Dilaudid) 2 mg PO Q6H PRN PRN Reason: Pain 3-10 Hyoscyamine (Levbid Er) 0.375 mg PO Q12H PRN PRN Reason: Colon Spasms Sodium Chloride (Ns Inj) 1,000 mls @ 100 mls/hr IV.CONT .Q10H [facility] Stop: 03/10/18 20:29 Megestrol Acetate (Megace Liq) 400 mg PO DAILY [facility] Methylprednisolone Sodium Succinate (Solumedrol Inj) 40 mg IV.PUSH Q8HR JENNIFER Mirtazapine (Remeron) 15 mg PO HS [facility] Non-Formulary Medication (Budesonide [Budesonide]) 3 mg PO Q8HR JENNIFER Nystatin (Mycostatin Cream) 1 applicatio TOPICAL DAILY PRN PRN Reason: Rash Ondansetron HCl (Zofran Inj) 4 mg IV.PUSH Q6H PRN PRN Reason: NAUSEA OR VOMITING Patient Own Medication: Florastor 250mg Capsule 0 each PO DAILY [facility] Senna/Docusate Sodium (Micaela-Colace) 1 tab PO BID [facility] Sertraline HCl (Zoloft) 50 mg PO DAILY [facility] Timolol Maleate (Timoptic 0.5% Drops) 1 drops EACH EYE [facility] Allergies Allergy/AdvReac Type Severity Reaction Status Date / Time drake Allergy Severe Swelling Verified 03/09/18 12:19 pravastatin Allergy Intermediate flu like Verified 03/09/18 12:19 symtoms simvastatin Allergy Intermediate flu like Verified 03/09/18 12:19 symtpoms azithromycin [From Zithromax] Allergy Anaphylaxis Verified 03/09/18 12:19 Home Medications Medication Instructions Recorded Confirmed Type budesonide 3 mg PO Q8HR 11/24/17 03/09/18 History folic acid 1 mg PO DAILY 11/24/17 03/09/18 History hydrocodone-acetaminophen 1 tab PO Q4-6H PRN 11/24/17 03/09/18 History hyoscyamine sulfate 0.375 mg PO Q12H PRN 11/24/17 03/09/18 History methotrexate sodium [Trexall] 15 mg PO QWEEK 11/24/17 03/09/18 History nystatin 1 applic TOPICAL DAILY PRN 11/24/17 03/09/18 History potassium gluconate 595 mg PO DAILY 11/24/17 03/09/18 History timolol 1 drp EACH EYE HS 11/24/17 03/09/18 History vit C,N-Tb-xbhbn-lutein-zeaxan 1 tab PO DAILY 11/24/17 03/09/18 History [PreserVision AREDS-2] ranitidine HCl [Zantac] 150 mg PO DAILY 12/16/17 03/09/18 History Saccharomyces boulardii [Florastor] 250 mg PO DAILY 03/09/18 03/09/18 History carboplatin 300 mg/m2 IV Q3W 03/09/18 03/09/18 History ciprofloxacin-dexamethasone 2 drp OTIC (EAR) BID 03/09/18 03/09/18 History [Ciprodex] cyanocobalamin (vitamin B-12) 1,000 mcg PO DAILY 03/09/18 03/09/18 History [Vitamin B-12] ergocalciferol (vitamin D2) 50,000 unit PO QWEEK 03/09/18 03/09/18 History [Vitamin D2] fluconazole 200 mg PO DAILY 03/09/18 03/09/18 History fluticasone-vilanterol [Breo 1 inh INHALATION DAILY 03/09/18 03/09/18 History Ellipta] hydromorphone 2 mg PO Q6H PRN 03/09/18 03/09/18 History ipratropium-albuterol 3 ml INHALATION Q8H 03/09/18 03/09/18 History megestrol 400 mg PO DAILY 03/09/18 03/09/18 History mirtazapine 15 mg PO HS 03/09/18 03/09/18 History ondansetron HCl [Zofran] 8 mg PO TID PRN 03/09/18 03/09/18 History paclitaxel 5.63 mg/m2/hr IV Q3W 03/09/18 03/09/18 History sertraline 50 mg PO DAILY 03/09/18 03/09/18 History vedolizumab [Entyvio] 300 mg IV Q6W 03/09/18 03/09/18 History Exam Vital signs: Vital Signs 03/09/18 12:16 03/09/18 13:07 Pulse Rate 117 H 108 H Respiratory Rate 24 26 H Blood Pressure 107/50 L Pulse Oximetry 91 L 97 Intake & Output 03/08/18 03/09/18 03/09/18 18:59 06:59 18:59 Intake Total 100 / 100 Balance 100 / 100 Intake: IV 100 / 100 Maxipime Inj 2,000 MG In NS Inj 100 / 100 100 ML @ 200 mls/hr IV.SIG STAT STA Rx#:[id number] Narrative: GENERAL: No distress. SKIN: Focused skin assessment warm/dry. HEAD: Atraumatic. Normocephalic. EYES: Pupils equal and round. No scleral icterus. No injection or drainage. ENT: No nasal bleeding or discharge. Mucous membranes pink and moist. NECK: Trachea midline. cardiovascular: Tachycardic, no murmur appreciated. RESPIRATORY: Increased respiratory effort noted. Decreased breath sounds, scattered rhonchi. GASTROINTESTINAL: Abdomen soft, non-tender, nondistended. MUSCULOSKELETAL: No obvious deformities. No clubbing. No cyanosis. No edema. NEUROLOGICAL: Awake. Motor grossly within normal limits. Normal speech. Results - Labs CBC & Chem 7: 03/09/18 13:10 03/09/18 13:10 Labs: Short CBC 03/09/18 Range/Units 13:10 WBC 7.5 (4.0-11.0) th/mm3 Hgb 10.1 L (11.6-15.3) gm/dL Hct 31.7 L (35.0-46.0) % Plt Count 210 D (150-450) th/mm3 BMP 03/09/18 13:10 Sodium 145 Potassium 3.6 Chloride 108 H Carbon Dioxide 24.7 BUN 19 H Creatinine 1.23 H Calcium 9.0 Cardiac Enzymes 03/09/18 Range/Units 13:10 Total Creatine Kinase 53 (26-192) U/L Troponin I Less than 0.02 L (0.02-0.05) ng/mL Liver Function 03/09/18 Range/Units 13:10 Total Bilirubin 0.3 (0.2-1.0) mg/dL AST 23 (15-37) U/L ALT 23 (10-53) U/L Alkaline Phosphatase 50 (45-117) U/L Albumin 2.6 L (3.4-5.0) g/dL - Imaging Impressions Chest X-Ray 03/09/18 12:38 CONCLUSION: Right-sided pleural effusion and right hilar mass similar in appearance to previous study of 01/05/2018. Chest Ultrasound 03/09/18 13:45 CONCLUSION: 1. There is only very minimal fluid at the right lung base. There is significant elevation of the right hemidiaphragm. Chest CTA 03/09/18 14:11 CONCLUSION: 1. No pulmonary embolus identified. 2. There is soft tissue in the right [place] presumably representing remnants of the patient's known malignancy. There is extensive atelectasis of the right middle and right lower lobe with minimal effusion. 3. There is elevation of the right hemidiaphragm. 4. There is minimal pericardial effusion. Caprini VTE Risk Assessment Caprini VTE Risk Assessment: Moderate/High Risk (score >= 2) Caprini Risk Assessment Model: Point Value = 1 Point Value = 2 Point Value = 3 Point Value = 5 Age 41-60 Minor surgery BMI > 25 kg/m2 Swollen legs Varicose veins or History of unexplained or recurrent spontaneous Oral contraceptives or hormone replacement Sepsis (< 1 month) Serious lung disease, including pneumonia (< 1 month) Abnormal pulmonary function Acute myocardial infarction Congestive heart failure (< 1 month) History of inflammatory bowel disease Medical patient at bed rest Age 61-74 Arthroscopic surgery Major open surgery (> 45 min) Laparoscopic surgery (> 45 min) Malignancy Confined to bed (> 72 hours) Immobilizing plaster cast Central venous access Age >= 75 History of VTE Family history of VTE Factor V Leiden Prothrombin [id number] Lupus anticoagulant Anticardiolipin antibodies Elevated serum homocysteine Heparin-induced thrombocytopenia Other congenital or acquired thrombophilia Stroke (< 1 month) Elective arthroplasty Hip, pelvis, or leg fracture Acute spinal cord injury (< 1 month) Prophylaxis Regimen: Total Risk Factor Score Risk Level Prophylaxis Regimen 0-1 Low Early ambulation 2 Moderate Order ONE of the following: *Sequential Compression Device (SCD) *Heparin 5000 units SQ BID 3-4 Higher Order ONE of the following medications: *Heparin 5000 units SQ TID *Enoxaparin/Lovenox 40 mg SQ daily (WT < 150 kg, CrCl > 30 mL/min) *Enoxaparin/Lovenox 30 mg SQ daily (WT < 150 kg, CrCl > 10-29 mL/min) *Enoxaparin/Lovenox 30 mg SQ BID (WT < 150 kg, CrCl > 30 mL/min) AND/OR *Sequential Compression Device (SCD) 5 or more Highest Order ONE of the following medications: *Heparin 5000 units SQ TID (Preferred with Epidurals) *Enoxaparin/Lovenox 40 mg SQ daily (WT < 150 kg, CrCl > 30 mL/min) *Enoxaparin/Lovenox 30 mg SQ daily (WT < 150 kg, CrCl > 10-29 mL/min) *Enoxaparin/Lovenox 30 mg SQ BID (WT < 150 kg, CrCl > 30 mL/min) AND *Sequential Compression Device (SCD) Assessment and Plan - Plan Acute respiratory failure The pt is on home oxygen for lung cancer and COPD. She presented with tachycardia and tachypnea. No obvious source of infection. CTA chest: No pulmonary embolus identified; There is soft tissue in the right [place] presumably representing remnants of the patient's known malignancy; There is extensive atelectasis of the right middle and right lower lobe with minimal effusion; There is elevation of the right hemidiaphragm; There is minimal pericardial effusion. Recent echo with normal EF. Lactic acid elevated. S/p cefepime in the ED. -hold off on antibiotics as the patient has a history of multiple C diff infections. -standing and as needed nebs. -incentive spirometry. -Solumedrol 40 mg IV q8h. -check an ABG. -sputum and blood cultures. -pulmonology consult requested. -trend lactic acid level. Lung cancer On chemo and radiation therapy. Next chemo session scheduled 03/09. -consult oncology. -follow CBC. -treatment as above. -PT eval. Renal insufficiency Likely pre-renal. -IVFs and monitor. -avoid nephrotoxins. Hyperglycemia Likely a stress reaction. -Monitor BMP while on steroids. PPx: Lovenox Code Status: Full
[2018-03-09 16:26] LABS: ABG Base Excess 1.9 mmol/L (-2-2); ABG PCO2 39 mmHg (38-42); ABG PO2 82 mmHg (61-120)
[2018-03-09] MEDS ORDERED: Vancomycin Consult Pharmacy OTHER PRN (17:14)
[2018-03-09] MEDS: MethylPREDNISolone Sod Succinate Inj 40 MG/ML Vial IV.PUSH SCH (17:59)
[2018-03-09] MEDS: Enoxaparin Inj 30 MG/0.3 ML Syringe SQ SCH (18:00)
[2018-03-09] MEDS: Sod Chloride 0.9% Inj 1,000 ML IV.CONT SCH (18:27)
[2018-03-09] MEDS ORDERED: Vancomycin Inj 1,000 MG in Sodium Chlor 0.9% Inj 250 ML IV.SIG ONE (18:30)
[2018-03-09] MEDS ORDERED: Sod Chloride 0.9% Inj 1,000 ML IV.SIG ONE (20:00)
[2018-03-09] MEDS: Mirtazapine 15 MG Tablet PO SCH (20:11)
[2018-03-09] MEDS: Senna/Docusate Sodium 8.6/50 MG Tablet PO SCH (20:11)
[2018-03-09] MEDS ORDERED: DEXAMETHASONE EACH EAR SCH (21:00)
[2018-03-09] MEDS ORDERED: CIPROFLOXACIN EACH EAR SCH (21:00)
[2018-03-09 21:29] LABS: Bacteria,Urine Occasional /hpf; Bilirubin,Urine Negative (Negative); Clarity,Urine Hazy (Clear); Color,Urine Yellow (Yellw/Straw); Glucose,Urine (UA) Negative (Negative); Leukocyte Esterase,Urine Negative (Negative); Mucus,Urine Few /lpf (Occasional); Nitrite,Urine Negative (Negative); Squamous Epithelial Cell,Urine 8 /hpf (0-5)
[2018-03-09] MEDS ORDERED: BUDESONIDE 3 MG PO SCH (22:00)
[2018-03-10] MEDS: Sod Chloride 0.9% Inj 1,000 ML IV.CONT SCH ×2 (01:08→08:18)
[2018-03-10] MEDS: Timolol 0.5% Drops 5 ML Bottle EACH EYE SCH ×2 (01:09→20:43)
[2018-03-10] MEDS: MethylPREDNISolone Sod Succinate Inj 40 MG/ML Vial IV.PUSH SCH ×3 (01:11→17:13)
[2018-03-10] MEDS: Chlorhexidine Gluconate 2% 1 Pack (2 Cloths) TOPICAL SCH (04:00)
[2018-03-10] MEDS ORDERED: Chlorhexidine Gluconate 2% 1 Pack (2 Cloths) TOPICAL PRN (04:00)
[2018-03-10 06:11] LABS: Baso % (Auto) 0.3 % (0.0-2.0); Hematocrit 24.8 % (35.0-46.0); Lymph # (Auto) 0.1 th/mm3 (1.0-4.8); Lymph % (Auto) 1.3 % (9.0-44.0); Mean Corpuscular HGB Conc 32.1 % (32.0-36.0); Mean Corpuscular Hemoglobin 30.9 pg (27.0-34.0); Mean Corpuscular Volume 96.3 fL (80.0-100.0); Mean Platelet Volume 8.1 fL (7.0-11.0); Mono # (Auto) 0.1 th/mm3 (0.0-0.9); Mono % (Auto) 1.2 % (0.0-8.0); Neut # (Auto) 4.6 th/mm3 (1.8-7.7); Neut % (Auto) 97.2 % (16.0-70.0); Platelet Count 174 th/mm3 (150-450); Red Blood Count 2.58 mil/mm3 (4.00-5.30); Red Cell Distribution Width 21.7 % (11.6-17.2); White Blood Count 4.8 th/mm3 (4.0-11.0)
[2018-03-10 06:48] LABS: Alanine Aminotransferase 18 U/L (10-53); Albumin 2.1 g/dL (3.4-5.0); Alkaline Phosphatase 46 U/L (45-117); Anion Gap 4 meq/L (5-15); Aspartate Aminotransferase 21 U/L (15-37); Blood Urea Nitrogen 23 mg/dL (7-18); Calcium 8.1 mg/dL (8.5-10.1); Carbon Dioxide 27.8 meq/L (21.0-32.0); Chloride 115 meq/L (98-107); Glomerular Filtration Rate 67 mL/min (>89); Glucose,Random 143 mg/dL (74-106); Sodium 147 meq/L (136-145)
[2018-03-10] MEDS: Megestrol Acetate Liq 400 MG/10 ML UDC PO SCH (08:19)
[2018-03-10] MEDS: Folic Acid 1 MG Tablet PO SCH (08:19)
[2018-03-10] MEDS: Sertraline 50 MG Tablet PO SCH (08:19)
[2018-03-10] MEDS: Famotidine 20 MG Tablet PO SCH ×2 (08:19→20:42)
[2018-03-10] MEDS: Senna/Docusate Sodium 8.6/50 MG Tablet PO SCH ×2 (08:20→20:42)
--- NOTE | 2018-03-10 09:14 | XR ---
EXAM DATE: 03/10/2018 9:10 AM EST AGE/SEX: 82 years / Female INDICATIONS: Difficulty breathing. CLINICAL DATA: This is the patient's subsequent encounter. Patient reports that signs and symptoms h ave been present for 2 days and indicates a pain score of 0/10. MEDICAL/SURGICAL HISTORY: . Arthritis. Crohn's disease. GERD. Glaucoma. High cholesterol. Lung cancer. Macular degeneration. Osteopenia. Hysterectomy. Corneal transplant status . COMPARISON: [facility] [place], CHEST 1V SINGLE AP, 03/09/2018. [facility] [place], CTA PULMONARY W CONTRAST W 3D, 03/09/2018 . . FINDINGS: A single AP view of the chest demonstrates the right hemidiaphragm remains elevated with an additiona l consolidation right lung base. Right-sided [id number]-[id number] catheter in good position. Left lung remai ns clear. The cardiomediastinal contours are unremarkable. Osseous structures are intact. CONCLUSION: Continued consolidation and an elevated right hemidiaphragm better seen on the recent CTA. Left lung remains clear. Electronically signed by: Andrea Whalen MD 03/10/2018 9:13 AM EST
[2018-03-10] MEDS ORDERED: Sodium Chloride 0.45 % Inj 1,000 ML IV.CONT SCH (10:00)
--- NOTE | 2018-03-10 10:04 | P.PNIM ---
Subjective Interval history: The patient was resting in bed. She still has shortness of breath. Family and pulmonology were at the bedside. The patient has not been having much sputum production. Discussed with nursing. Physical Exam Vital signs: Vital Signs 03/09/18 12:16 03/09/18 13:07 03/09/18 16:35 Temperature 97.7 F Pulse Rate 117 H 108 H 100 H Respiratory Rate 24 26 H 24 Blood Pressure 107/50 L 74/29 L Pulse Oximetry 91 L 97 97 03/09/18 18:00 03/09/18 18:36 03/09/18 20:00 Temperature 95.5 F L Pulse Rate 93 H 98 H 95 H Respiratory Rate 26 H 24 Blood Pressure 93/51 L 89/50 L Pulse Oximetry 96 95 03/09/18 20:04 03/09/18 21:00 03/09/18 21:01 Temperature 97.8 F Pulse Rate 97 H 88 Respiratory Rate 26 H 27 H Blood Pressure 113/53 L 92/52 L Pulse Oximetry 92 L 97 100 03/09/18 21:02 03/09/18 22:00 03/09/18 23:12 Temperature Pulse Rate 90 83 83 Respiratory Rate 24 18 17 Blood Pressure 100/49 L 91/54 L Pulse Oximetry 95 93 L 03/10/18 00:00 03/10/18 01:00 03/10/18 02:00 Temperature Pulse Rate 81 82 85 Respiratory Rate 17 18 Blood Pressure 94/55 L 97/52 L Pulse Oximetry 97 98 03/10/18 02:01 03/10/18 03:00 03/10/18 03:40 Temperature Pulse Rate 79 79 81 Respiratory Rate 18 18 Blood Pressure 108/52 L 96/54 L Pulse Oximetry 96 94 L 03/10/18 04:00 03/10/18 05:00 03/10/18 06:00 Temperature 97.6 F Pulse Rate 81 80 81 Respiratory Rate 15 23 24 Blood Pressure 99/52 L 102/55 L 115/62 Pulse Oximetry 96 99 96 Intake & Output 03/09/18 03/10/18 03/10/18 18:59 06:59 18:59 Intake Total 250 / 250 1420 / 1420 1000 / 1000 Output Total 550 / 550 Balance 250 / 250 870 / 870 1000 / 1000 Weight 79.2 kg 81.5 kg Intake: IV 100 / 100 1000 / 1000 1000 / 1000 NS Inj 1,000 ML @ 150 mls/hr IV 1000 / 1000 1000 / 1000 .CONT .[id number] [facility] Rx#:[id number] Maxipime Inj 2,000 MG In NS Inj 100 / 100 100 ML @ 200 mls/hr IV.SIG STAT STA Rx#:[id number] Oral 150 / 150 420 / 420 Output: Urine 550 / 550 Other: Date of Last Bowel Movement 03/09/18 03/09/18 # Bowel Movements 1 Weight On Admission 79.2 kg Narrative: GENERAL: No distress. SKIN: Focused skin assessment warm/dry. HEAD: Atraumatic. Normocephalic. EYES: Pupils equal and round. No scleral icterus. No injection or drainage. ENT: No nasal bleeding or discharge. Mucous membranes pink and moist. NECK: Trachea midline. cardiovascular: Tachycardic, no murmur appreciated. RESPIRATORY: Increased respiratory effort noted. Diffuse wheezing. GASTROINTESTINAL: Abdomen soft, non-tender, nondistended. MUSCULOSKELETAL: No obvious deformities. No clubbing. No cyanosis. No edema. NEUROLOGICAL: Awake. Motor grossly within normal limits. Normal speech. Results - Labs CBC & Chem 7: 03/10/18 05:30 03/10/18 05:30 Laboratory Results - last 24 hr 03/09/18 03/09/18 03/09/18 13:10 13:10 13:10 WBC 7.5 RBC 3.31 L Hgb 10.1 L Hct 31.7 L MCV 95.7 MCH 30.5 MCHC 31.9 L RDW 22.0 H Plt Count 210 D MPV 8.3 Neut % (Auto) 91.7 H Lymph % (Auto) 3.6 L [place] % (Auto) 4.4 Eos % (Auto) 0.1 Baso % (Auto) 0.2 Neut # (Auto) 6.9 Lymph # (Auto) 0.3 L [place] # (Auto) 0.3 Eos # (Auto) 0.0 Baso # (Auto) 0.0 WBC Differential . Differential Comment Auto diff final PT 11.1 INR 1.1 APTT 26.1 Puncture Site Patient Temperature O2 Saturation ABG pH ABG pCO2 ABG pO2 ABG HCO3 ABG O2 Content ABG Base Excess ABG Methemoglobin Yoseph Test Hemoglobin Carboxyhemoglobin O2 Delivery Device Liter Flow Critical Value Sodium 145 Potassium 3.6 Chloride 108 H Carbon Dioxide 24.7 Anion Gap 12 BUN 19 H Creatinine 1.23 H Estimated GFR 42 L Random Glucose 199 H Lactic Acid Calcium 9.0 Magnesium 1.9 Iron Total Bilirubin 0.3 AST 23 ALT 23 Alkaline Phosphatase 50 Total Creatine Kinase 53 Troponin I Less than 0.02 L B-Natriuretic Peptide Total Protein 7.0 Albumin 2.6 L Urine Color Urine Clarity Urine pH Ur Specific [place] Urine Protein Urine Glucose (UA) Urine Ketones Urine Occult Blood Urine Nitrate Urine Bilirubin Urine Urobilinogen Ur Leukocyte Esterase Urine RBC Urine WBC Ur Squamous Epith Cells Urine Bacteria Urine Mucus Micro UA Comment Ur Microscopic Review Urine Culture Comments Nasal Screen MRSA (PCR) 03/09/18 03/09/18 03/09/18 13:10 13:10 16:18 WBC RBC Hgb Hct MCV MCH MCHC RDW Plt Count MPV Neut % (Auto) Lymph % (Auto) [place] % (Auto) Eos % (Auto) Baso % (Auto) Neut # (Auto) Lymph # (Auto) [place] # (Auto) Eos # (Auto) Baso # (Auto) WBC Differential Differential Comment PT INR APTT Puncture Site Right radial Patient Temperature 98.6 O2 Saturation 95 ABG pH 7.44 H ABG pCO2 39 ABG pO2 82 ABG HCO3 26 ABG O2 Content 11.9 L ABG Base Excess 1.9 ABG Methemoglobin 0.4 Yoseph Test Present Hemoglobin 8.9 L Carboxyhemoglobin 1.2 O2 Delivery Device Nasal cannula Liter Flow 2.00 Critical Value No Sodium Potassium Chloride Carbon Dioxide Anion Gap BUN Creatinine Estimated GFR Random Glucose Lactic Acid 3.4 H Calcium Magnesium Iron Total Bilirubin AST ALT Alkaline Phosphatase Total Creatine Kinase Troponin I B-Natriuretic Peptide 177 H Total Protein Albumin Urine Color Urine Clarity Urine pH Ur Specific [place] Urine Protein Urine Glucose (UA) Urine Ketones Urine Occult Blood Urine Nitrate Urine Bilirubin Urine Urobilinogen Ur Leukocyte Esterase Urine RBC Urine WBC Ur Squamous Epith Cells Urine Bacteria Urine Mucus Micro UA Comment Ur Microscopic Review Urine Culture Comments Nasal Screen MRSA (PCR) 03/09/18 03/09/18 03/09/18 18:50 19:08 20:20 WBC RBC Hgb Hct MCV MCH MCHC RDW Plt Count MPV Neut % (Auto) Lymph % (Auto) [place] % (Auto) Eos % (Auto) Baso % (Auto) Neut # (Auto) Lymph # (Auto) [place] # (Auto) Eos # (Auto) Baso # (Auto) WBC Differential Differential Comment PT INR APTT Puncture Site Patient Temperature O2 Saturation ABG pH ABG pCO2 ABG pO2 ABG HCO3 ABG O2 Content ABG Base Excess ABG Methemoglobin Yoseph Test Hemoglobin Carboxyhemoglobin O2 Delivery Device Liter Flow Critical Value Sodium Potassium Chloride Carbon Dioxide Anion Gap BUN Creatinine Estimated GFR Random Glucose Lactic Acid 1.3 Calcium Magnesium Iron Total Bilirubin AST ALT Alkaline Phosphatase Total Creatine Kinase Troponin I B-Natriuretic Peptide Total Protein Albumin Urine Color Yellow Urine Clarity Hazy H Urine pH 5.0 Ur Specific [place] Greater than 1.060 H Urine Protein 30 H Urine Glucose (UA) Negative Urine Ketones Trace H Urine Occult Blood Negative Urine Nitrate Negative Urine Bilirubin Negative Urine Urobilinogen Less than 2 Ur Leukocyte Esterase Negative Urine RBC 9 H Urine WBC 2 Ur Squamous Epith Cells 8 Urine Bacteria Occasional H Urine Mucus Few H Micro UA Comment Culture not ind Ur Microscopic Review Not Reportable Urine Culture Comments Culture not ind Nasal Screen MRSA (PCR) Not detected 03/10/18 03/10/18 03/10/18 05:30 05:30 05:30 WBC 4.8 RBC 2.58 L Hgb 8.0 L D Hct 24.8 L MCV 96.3 MCH 30.9 MCHC 32.1 RDW 21.7 H Plt Count 174 MPV 8.1 Neut % (Auto) 97.2 H Lymph % (Auto) 1.3 L [place] % (Auto) 1.2 Eos % (Auto) 0.0 Baso % (Auto) 0.3 Neut # (Auto) 4.6 Lymph # (Auto) 0.1 L [place] # (Auto) 0.1 Eos # (Auto) 0.0 Baso # (Auto) 0.0 WBC Differential . Differential Comment Auto diff final PT INR APTT Puncture Site Patient Temperature O2 Saturation ABG pH ABG pCO2 ABG pO2 ABG HCO3 ABG O2 Content ABG Base Excess ABG Methemoglobin Yoseph Test Hemoglobin Carboxyhemoglobin O2 Delivery Device Liter Flow Critical Value Sodium 147 H Potassium 4.0 Chloride 115 H Carbon Dioxide 27.8 Anion Gap 4 L BUN 23 H Creatinine 0.81 Estimated GFR 67 L Random Glucose 143 H Lactic Acid Calcium 8.1 L D Magnesium Iron 19 L Total Bilirubin 0.2 AST 21 ALT 18 Alkaline Phosphatase 46 Total Creatine Kinase Troponin I B-Natriuretic Peptide Total Protein 6.0 L D Albumin 2.1 L Urine Color Urine Clarity Urine pH Ur Specific [place] Urine Protein Urine Glucose (UA) Urine Ketones Urine Occult Blood Urine Nitrate Urine Bilirubin Urine Urobilinogen Ur Leukocyte Esterase Urine RBC Urine WBC Ur Squamous Epith Cells Urine Bacteria Urine Mucus Micro UA Comment Ur Microscopic Review Urine Culture Comments Nasal Screen MRSA (PCR) - Imaging Impressions Chest X-Ray 03/09/18 12:38 CONCLUSION: Right-sided pleural effusion and right hilar mass similar in appearance to previous study of 01/05/2018. Chest Ultrasound 03/09/18 13:45 CONCLUSION: 1. There is only very minimal fluid at the right lung base. There is significant elevation of the right hemidiaphragm. Chest CTA 03/09/18 14:11 CONCLUSION: 1. No pulmonary embolus identified. 2. There is soft tissue in the right [place] presumably representing remnants of the patient's known malignancy. There is extensive atelectasis of the right middle and right lower lobe with minimal effusion. 3. There is elevation of the right hemidiaphragm. 4. There is minimal pericardial effusion. Chest X-Ray 03/10/18 08:30 CONCLUSION: Continued consolidation and an elevated right hemidiaphragm better seen on the recent CTA. Left lung remains clear. Assessment and Plan - Plan Acute respiratory failure The pt is on home oxygen for lung cancer and COPD. She presented with tachycardia and tachypnea. No obvious source of infection. CTA chest: No pulmonary embolus identified; There is soft tissue in the right [place] presumably representing remnants of the patient's known malignancy; There is extensive atelectasis of the right middle and right lower lobe with minimal effusion; There is elevation of the right hemidiaphragm; There is minimal pericardial effusion. Recent echo with normal EF. Lactic acid elevated. S/p cefepime in the ED. -standing and as needed nebs. -incentive spirometry. -Solumedrol 40 mg IV q8h. -sputum and blood cultures. -pulmonology consult requested. Sepsis/Hypotension Likely s/t underlying pneumonia and dehydration. Improved with IVFs and antibiotics. -continue vancomycin and cefepime. Continue probiotics as has a history of C diff. -IVFs. -follow cultures. Lung cancer On chemo and radiation therapy. Next chemo session scheduled 03/09. Has anemia. -consult oncology. -follow CBC and transfuse as needed. Check iron studies, B12, folate levels, Hemoccult. -treatment as above. -PT eval. Renal insufficiency Likely pre-renal. -IVFs and monitor. Improved. -avoid nephrotoxins. Hyperglycemia Likely a stress reaction. -Monitor BMP while on steroids. PPx: Lovenox
[2018-03-10 10:07] LABS: % Iron Saturation 9.5 % (20-50); Folate 10.6 ng/mL (3.1-17.5)
--- NOTE | 2018-03-10 12:46 | ECG ---
Date Performed: 03/09/2018 Time Performed: 12:56:05 PTAGE: 82 years EKG: SINUS TACHYCARDIA POSSIBLE LEFT ATRIAL ENLARGEMENT LOW QRS VOLTAGE IN PRECORDIAL LEADS ABNO RMAL RHYTHM ECG PREVIOUS TRACING : 01/05/2018 21.41 DOCTOR: Andrea Arora Interpretating Date/Time 03/10/2018 12:42:45
[2018-03-10] MEDS: Enoxaparin Inj 30 MG/0.3 ML Syringe SQ SCH (14:10)
--- NOTE | 2018-03-10 16:36 | MB ---
cc: Marcella Wolff MD DATE: 03/10/2018 HISTORY OF PRESENT ILLNESS: Ms. Dodson is an 82-year-old white female, whom I met in November with COPD and a large mass in the right lung. 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 She does have moderately severe underlying COPD, but on her last office visit, 01/27/2018, she was stable on a regimen of DuoNeb twice a day and Breo 200 once a day. At that time, she was using oxygen as well. She presented to the emergency room yesterday with increasing shortness of breath and an abnormal chest x-ray. It was thought she may have had a large recurrent right pleural effusion or pulmonary embolism and a CTA was performed. There was no evidence of thromboembolic disease and very minimal fluid in that right lung. The mass in the right lung had diminished significantly compared to previous and there was no obvious radiation change in the uninvolved lung. The patient was hypotensive, though, hypothermic and was thought possibly to be septic. She was transferred to the intensive care last night, placed on cefepime, vancomycin, aerosolized bronchodilators and corticosteroids and also received fluid resuscitation. Hemoglobin was 10 on admission, but dropped to 8, probably due to hydration. At the time of this interview this morning, she was awake, alert, under heating blankets and felt comfortable. She was not experiencing shortness of breath at this time. She has completed her radiation therapy and has had a couple of courses of chemotherapy. No hemoptysis leading up to this. No chest pain. Cough was nonproductive. Appetite has been very poor, according to her daughter. Cardiovascular evaluation on initial presentation in November was negative, although they thought she had had an [place]. Apparently, there is no significant ischemic heart disease. PAST MEDICAL HISTORY: Degenerative arthritis, Crohn's disease, depression, chronic reflux disease, glaucoma, prior hysterectomy, macular degeneration, and she has had several corneal transplants. FAMILY HISTORY: Positive for cancer. has severe COPD. SOCIAL HISTORY: , living with her . Children are very supportive. Daughter is at her bedside at present. Prior smoker, quit in 1979. No alcohol use. REVIEW OF SYSTEMS: Other than that noted above, she has had no orthopnea, PND, increasing edema. MEDICATIONS: Reviewed in the EMR. ALLERGIES: 1. ZITHROMAX 2. PRAVASTATIN. PHYSICAL EXAMINATION: GENERAL: Awake, alert, conversant, in no distress. Denies shortness of breath at rest. VITAL SIGNS: Blood pressure 100/50, pulse 100, respirations 22, O2 saturation on 2 liters 96%. HEENT: Sclerae pale, anicteric. NECK: Veins are not distended. CHEST: Reveals some minimal scattered wheezing, no congestion, no rhonchi. HEART: Regular rhythm. No harsh murmur. ABDOMEN: Soft. EXTREMITIES: No peripheral edema or calf tenderness. DISCUSSION: Ms. Dodson presents with a possible right mid to lower lung pneumonia, although this area is obscured by her mass, which has diminished in size. There is no significant fluid, no pulmonary embolism. She does have significant underlying COPD. This could be a simple exacerbation associated with anemia and recent radiation and chemotherapy. She has done well overnight and feeling better today. We will continue hydration, IV corticosteroids, aerosolized bronchodilators and antibiotics pending culture reports. I spoke with her daughter, who is at the bedside. I also spoke to Dr. Gonzalez and Dr. Perez about her ongoing management. Further diagnostic and/or therapeutic intervention will depend on her ongoing clinical course. RMD BETTE Campos/paz , 04:12 PM , 04:21 PM
[2018-03-10] MEDS ORDERED: Vancomycin Inj 900 MG in Sodium Chlor 0.9% Inj 250 ML IV.SIG SCH (18:00)
[2018-03-10] MEDS: Mirtazapine 15 MG Tablet PO SCH (20:42)
--- NOTE | 2018-03-10 23:44 | MB ---
cc: Jonah Gonzalez MD DATE: 03/10/2018 REASON FOR CONSULTATION: Consult requested by Dr. Perez for evaluation and management of non-small cell lung cancer. HISTORY OF PRESENT ILLNESS: Zaynab is a pleasant 82-year-old female. She was diagnosed with non-small cell lung cancer, stage IV, with bone metastasis in 11/2017. The tumor was invasive, poorly differentiated squamous cell carcinoma. PD-L1 was 90% positive. She had palliative chemotherapy with carboplatin and Taxol with Keytruda on 12/30/2017. The patient has tolerated the chemotherapy well. However a few days later, she was admitted to the hospital for respiratory distress. She was treated with steroids and bronchodilators. she responded and improved. Due to the collapse of the lung, the patient had received palliative radiation therapy to the large central lung mass. Subsequently, she had second cycle of chemotherapy, carboplatin and Taxol, on 02/10/2018. The Keytruda was discontinued due to the possibility of pneumonitis after the first cycle. Patient has autoimmune disease. The patient came into the office last week after the restaging CAT scan of the chest which showed an excellent response. The tumor has significantly reduced. The collapsed lung has reexpanded. The patient was due for the third cycle of chemotherapy, but due to the thrombocytopenia, I held off the chemotherapy. I suggested that she will come this week, and we will give her third cycle of chemotherapy if her platelet count and white count improve. In fact, she was scheduled to have a third cycle of chemotherapy today. The patient came into the emergency room complaining of severe shortness of breath yesterday. In the ER, she was found to be hypotensive. The patient is now admitted to the intensive care unit for exacerbation of COPD. Dr. Vitaliy Wolff has been consulted. I have been asked to see the patient for further evaluation. The patient states that her breathing has improved. However, she is feeling cold. She is also complaining of weakness and fatigue. One of the daughters was present at the bedside. According to her, her mother seems to be better than yesterday. PAST MEDICAL HISTORY: Celiac disease, iron deficiency anemia, COPD, depression, diabetes mellitus, diverticulosis, gastroesophageal reflux disease, glaucoma, hemorrhoids, hypercholesterolemia, Crohn disease, arthritis. PAST SURGICAL HISTORY: Cataract, cornea transplant, upper endoscopy, partial hysterectomy, tonsillectomy, cystectomy, colonoscopy, Infusaport placement. ALLERGIES: PRAVASTATIN AND ZITHROMAX. MEDICATIONS: Prior to going to the hospital: 1. Budesonide. 2. Calcium. 3. Carvedilol. 4. Florastor. 5. Folic acid. 6. Lortab. 7. Nebulizer. 8. Mirtazapine. 9. Potassium. 10. Sertraline. 11. Timolol. FAMILY HISTORY: Both her parents have . She has 3 brothers, 2 have . She has 2 daughters, both are alive and well. She does not have any sisters or any sons. SOCIAL HISTORY: The patient is . She is a homemaker. She used to smoke cigarettes, 3 packs a day for 40 years, quit 20 years ago. She does not drink alcohol. PHYSICAL EXAMINATION: GENERAL: A well-developed, elderly, white female. VITAL SIGNS: Temperature is 97.6, heart rate is 71, respiratory rate is 19, O2 saturation 97% on room air, blood pressure is 115/62. HEENT: PERRLA. EOMI. Anicteric. No oral lesions noted. NECK: No lymphadenopathy noted. LUNGS: Decreased breath sounds on both sides. HEART: Regular rate and rhythm. ABDOMEN: Soft, nontender. No hepatosplenomegaly. EXTREMITIES: No pedal edema. NEUROLOGIC: Awake, alert, oriented x3. SKIN: No significant lesions noted. ASSESSMENT: 1. Respiratory distress, most likely due to exacerbation of chronic obstructive pulmonary disease precipitated by possible radiation pneumonitis. 2. Non-small cell lung cancer, stage IV, status post 2 cycles of carboplatin and Alimta chemotherapy as well as palliative radiation therapy for the central lung mass for collapse of the lung. 3. Anemia due to the chemotherapy. PLAN: I have reviewed her available records, and I have discussed with the patient and her daughter regarding her clinical status. She came in with respiratory distress. The CT angiogram of the chest does not show any pulmonary embolism. It showed that the previously noted right lung mass has improved. The collapsed lung has now reexpanded. Her COPD may have been exacerbated by possible radiation pneumonitis. The patient is now on Solu-Medrol. We reviewed her blood test results from yesterday. The CBC showed white count 7.5, hemoglobin 10.1, platelet count 210. Today, her white count is 4.8, hemoglobin dropped to 8.0, and platelet count is 174. Most likely cause of drop in the hemoglobin is dilutional from fluid resuscitation as she was hypotensive in the emergency room. I will hold off on the blood transfusion today. We will repeat the CBC in the morning, and if her hemoglobin remains low, then we will give her blood transfusion that will improve her oxygenation and breathing. The patient was due for the third cycle of chemotherapy today, but I will hold off on that for now. Case has been discussed with network support specialist, Dr. Vitaliy Wolff. Further recommendations based on hospital stay. Thank you for asking my opinion. MD ZOLTAN Meracdo/travis , 10:34 PM , 10:55 PM BENNIE
[2018-03-11] MEDS: MethylPREDNISolone Sod Succinate Inj 40 MG/ML Vial IV.PUSH SCH ×3 (00:10→20:20)
[2018-03-11 05:16] LABS: Baso % (Auto) 0.2 % (0.0-2.0); Hematocrit 23.5 % (35.0-46.0); Hemoglobin 7.8 gm/dL (11.6-15.3); Lymph # (Auto) 0.1 th/mm3 (1.0-4.8); Lymph % (Auto) 1.4 % (9.0-44.0); Mean Corpuscular HGB Conc 33.2 % (32.0-36.0); Mean Corpuscular Hemoglobin 31.4 pg (27.0-34.0); Mean Corpuscular Volume 94.6 fL (80.0-100.0); Mean Platelet Volume 8.1 fL (7.0-11.0); Mono # (Auto) 0.1 th/mm3 (0.0-0.9); Neut # (Auto) 6.4 th/mm3 (1.8-7.7); Neut % (Auto) 96.4 % (16.0-70.0); Platelet Count 222 th/mm3 (150-450); Red Blood Count 2.49 mil/mm3 (4.00-5.30); Red Cell Distribution Width 21.7 % (11.6-17.2); White Blood Count 6.7 th/mm3 (4.0-11.0)
[2018-03-11 05:41] LABS: Calcium 8.5 mg/dL (8.5-10.1); Carbon Dioxide 26.8 meq/L (21.0-32.0)
[2018-03-11] MEDS: Sertraline 50 MG Tablet PO SCH (08:37)
[2018-03-11] MEDS: Senna/Docusate Sodium 8.6/50 MG Tablet PO SCH ×2 (08:38→20:21)
[2018-03-11] MEDS: Folic Acid 1 MG Tablet PO SCH (08:38)
[2018-03-11] MEDS: Famotidine 20 MG Tablet PO SCH ×2 (08:38→20:20)
[2018-03-11] MEDS: Chlorhexidine Gluconate 2% 1 Pack (2 Cloths) TOPICAL SCH (08:39)
[2018-03-11] MEDS: Megestrol Acetate Liq 400 MG/10 ML UDC PO SCH (08:39)
--- NOTE | 2018-03-11 09:24 | P.PNIM ---
Subjective Interval history: The patient was resting comfortably in bed. She said she has never had blood transfusion before. She would like to go home soon. Family at the bedside and their questions were answered. Discussed with nursing. Physical Exam Vital signs: Vital Signs 03/10/18 10:00 03/10/18 11:00 03/10/18 11:44 Temperature Pulse Rate 91 H 84 87 Respiratory Rate 20 11 L 12 Blood Pressure 113/60 109/55 L Pulse Oximetry 100 03/10/18 12:00 03/10/18 13:00 03/10/18 14:00 Temperature Pulse Rate 85 96 H 100 H Respiratory Rate 23 26 H 16 Blood Pressure 125/58 L 130/74 Pulse Oximetry 98 03/10/18 14:01 03/10/18 15:00 03/10/18 15:01 Temperature Pulse Rate 101 H 94 H 95 H Respiratory Rate 15 14 14 Blood Pressure 134/61 118/58 L Pulse Oximetry 03/10/18 15:56 03/10/18 16:00 03/10/18 16:01 Temperature Pulse Rate 96 H 94 H 94 H Respiratory Rate 17 13 Blood Pressure 120/58 L Pulse Oximetry 100 100 03/10/18 17:00 03/10/18 17:01 03/10/18 17:26 Temperature Pulse Rate 110 H 110 H 97 H Respiratory Rate 12 Blood Pressure 117/82 Pulse Oximetry 03/10/18 18:00 03/10/18 19:00 03/10/18 20:00 Temperature 98.1 F Pulse Rate 97 H 102 H 101 H Respiratory Rate 20 21 Blood Pressure 119/56 L 139/64 Pulse Oximetry 96 82 L 03/10/18 20:09 03/10/18 21:00 03/10/18 22:00 Temperature Pulse Rate 101 H 101 H 100 H Respiratory Rate 15 17 15 Blood Pressure 130/58 L 136/60 Pulse Oximetry 94 L 89 L 78 L 03/10/18 23:00 03/11/18 00:00 03/11/18 01:00 Temperature 97.8 F Pulse Rate 96 H 99 H 93 H Respiratory Rate 14 17 13 Blood Pressure 129/60 141/66 H 124/64 Pulse Oximetry 100 97 97 03/11/18 02:00 03/11/18 03:00 03/11/18 04:00 Temperature 97.4 F L Pulse Rate 91 H 91 H 93 H Respiratory Rate 12 10 L 16 Blood Pressure 130/63 134/61 141/67 H Pulse Oximetry 92 L 94 L 03/11/18 04:27 03/11/18 04:28 03/11/18 05:00 Temperature Pulse Rate 101 H 100 H Respiratory Rate 22 14 Blood Pressure 124/61 Pulse Oximetry 95 98 03/11/18 06:00 Temperature Pulse Rate 98 H Respiratory Rate 26 H Blood Pressure 131/60 Pulse Oximetry 82 L Intake & Output 03/10/18 03/11/18 03/11/18 18:59 06:59 18:59 Intake Total 3100 / 3100 360 / 360 Output Total 400 / 400 480 / 480 Balance 2700 / 2700 -120 / -120 Weight 83.7 kg Intake: IV 3100 / 3100 NS Inj 1,000 ML @ 150 mls/hr IV 1999 / 1999 .CONT .Q6H40M JENNIFER Rx#:[id number] 1/2 Normal Saline Inj 1,000 ML 1000 / 1000 @ 125 mls/hr IV.CONT .Q8H JENNIFER Rx#:[id number] Maxipime Inj 2,000 MG In NS Inj 100 / 100 100 ML @ 200 mls/hr IV.SIG Q24H JENNIFER Rx#:[id number] Oral 360 / 360 Output: Urine 400 / 400 480 / 480 Other: Date of Last Bowel Movement 03/10/18 03/10/18 # Bowel Movements 0 Narrative: GENERAL: No distress. SKIN: Focused skin assessment warm/dry. HEAD: Atraumatic. Normocephalic. EYES: Pupils equal and round. No scleral icterus. No injection or drainage. ENT: No nasal bleeding or discharge. Mucous membranes pink and moist. NECK: Trachea midline. cardiovascular: Tachycardic, no murmur appreciated. RESPIRATORY: Clear to auscultation bilaterally. GASTROINTESTINAL: Abdomen soft, non-tender, nondistended. MUSCULOSKELETAL: No obvious deformities. No clubbing. No cyanosis. No edema. NEUROLOGICAL: Awake. Motor grossly within normal limits. Normal speech. Results - Labs CBC & Chem 7: 03/11/18 04:30 03/11/18 04:30 Laboratory Results - last 24 hr 03/10/18 03/11/18 03/11/18 05:30 04:30 04:30 WBC 6.7 RBC 2.49 L Hgb 7.8 L Hct 23.5 L MCV 94.6 MCH 31.4 MCHC 33.2 RDW 21.7 H Plt Count 222 MPV 8.1 Neut % (Auto) 96.4 H Lymph % (Auto) 1.4 L [place] % (Auto) 2.0 Eos % (Auto) 0.0 Baso % (Auto) 0.2 Neut # (Auto) 6.4 Lymph # (Auto) 0.1 L [place] # (Auto) 0.1 Eos # (Auto) 0.0 Baso # (Auto) 0.0 WBC Differential . Differential Comment Auto diff final Sodium 145 Potassium 4.0 Chloride 111 H Carbon Dioxide 26.8 Anion Gap 7 BUN 20 H Creatinine 0.86 Estimated GFR 63 L Random Glucose 167 H Calcium 8.5 Iron 19 L TIBC 200 L % Saturation 9.5 L Ferritin 550 H Vitamin B12 946 Folate 10.6 Microbiology 03/09/18 13:10 Blood - Peripheral Aerobic Blood Culture - Preliminary No growth in 1 day 03/09/18 13:10 Blood - Peripheral Anaerobic Blood Culture - Preliminary No growth in 1 day 03/09/18 13:00 Blood - Peripheral Aerobic Blood Culture - Preliminary No growth in 1 day 03/09/18 13:00 Blood - Peripheral Anaerobic Blood Culture - Preliminary No growth in 1 day Assessment and Plan - Plan Acute respiratory failure The pt is on home oxygen for lung cancer and COPD. She presented with tachycardia and tachypnea. No obvious source of infection. CTA chest: No pulmonary embolus identified; There is soft tissue in the right deedee presumably representing remnants of the patient's known malignancy; There is extensive atelectasis of the right middle and right lower lobe with minimal effusion; There is elevation of the right hemidiaphragm; There is minimal pericardial effusion. Recent echo with normal EF. Lactic acid elevated. S/p cefepime in the ED. Pulmonology consult appreciated. -standing and as needed nebs. -incentive spirometry. -Solumedrol 40 mg IV q12h. -sputum and blood cultures. -pulmonology following. Sepsis/Hypotension Likely s/t underlying pneumonia and dehydration. Improved with IVFs and antibiotics. -continue vancomycin and cefepime. Continue probiotics as has a history of C diff. -s/p IVFs. -follow cultures. -resume Coreg as blood pressure has been normal to slightly elevated. Lung cancer On chemo and radiation therapy. Next chemo session scheduled 03/09. Has anemia. Oncology consult appreciated. -check Hemoccult. -treatment as above. -PT eval. Rehab recommended. -oncology likely to transfuse red cells today. Follow CBC. Renal insufficiency Likely pre-renal. -IVFs and monitor. Improved. -avoid nephrotoxins. Hyperglycemia Likely a stress reaction. -Monitor BMP while on steroids. -wean steroids. PPx: Lovenox Discharge Planning: May need SNF when cleared
[2018-03-11] MEDS ORDERED: Acetaminophen 325 MG Tablet PO PRN (11:18)
[2018-03-11] MEDS ORDERED: Sodium Chlor 0.9% Inj 250 ML IV.SIG SCH (12:00)
--- NOTE | 2018-03-11 13:47 | P.PNONC ---
Subjective Interval history: Afebrile. Patient sitting in chair, awake and alert. She reports she is waiting for the lab to come draw her blood for type and screen. She is aware that she will be getting 1 unit RBCs today. Objective Vital Signs/Intake & Output: Vital Signs 03/10/18 14:00 03/10/18 14:01 03/10/18 15:00 Temperature Pulse Rate 100 H 101 H 94 H Respiratory Rate 16 15 14 Blood Pressure 134/61 Pulse Oximetry 03/10/18 15:01 03/10/18 15:56 03/10/18 16:00 Temperature Pulse Rate 95 H 96 H 94 H Respiratory Rate 14 17 Blood Pressure 118/58 L Pulse Oximetry 100 03/10/18 16:01 03/10/18 17:00 03/10/18 17:01 Temperature Pulse Rate 94 H 110 H 110 H Respiratory Rate 13 Blood Pressure 120/58 L 117/82 Pulse Oximetry 100 03/10/18 17:26 03/10/18 18:00 03/10/18 19:00 Temperature Pulse Rate 97 H 97 H 102 H Respiratory Rate 12 20 Blood Pressure 119/56 L Pulse Oximetry 96 03/10/18 20:00 03/10/18 20:09 03/10/18 21:00 Temperature 98.1 F Pulse Rate 101 H 101 H 101 H Respiratory Rate 21 15 17 Blood Pressure 139/64 130/58 L Pulse Oximetry 82 L 94 L 89 L 03/10/18 22:00 03/10/18 23:00 03/11/18 00:00 Temperature 97.8 F Pulse Rate 100 H 96 H 99 H Respiratory Rate 15 14 17 Blood Pressure 136/60 129/60 141/66 H Pulse Oximetry 78 L 100 97 03/11/18 01:00 03/11/18 02:00 03/11/18 03:00 Temperature Pulse Rate 93 H 91 H 91 H Respiratory Rate 13 12 10 L Blood Pressure 124/64 130/63 134/61 Pulse Oximetry 97 92 L 03/11/18 04:00 03/11/18 04:27 03/11/18 04:28 Temperature 97.4 F L Pulse Rate 93 H 101 H Respiratory Rate 16 22 Blood Pressure 141/67 H Pulse Oximetry 94 L 95 03/11/18 05:00 03/11/18 06:00 03/11/18 07:00 Temperature Pulse Rate 100 H 98 H 93 H Respiratory Rate 14 26 H 15 Blood Pressure 124/61 131/60 132/60 Pulse Oximetry 98 82 L 03/11/18 08:00 03/11/18 09:00 03/11/18 09:27 Temperature 97.9 F Pulse Rate 103 H 101 H 102 H Respiratory Rate 22 24 34 H Blood Pressure 152/68 H 139/63 131/65 Pulse Oximetry 81 L 100 03/11/18 10:00 03/11/18 11:00 03/11/18 12:00 Temperature 98.0 F Pulse Rate 108 H 92 H 90 Respiratory Rate 23 14 16 Blood Pressure 120/57 L 128/60 137/63 Pulse Oximetry 93 L 100 100 03/11/18 13:00 Temperature Pulse Rate 91 H Respiratory Rate 17 Blood Pressure 146/64 H Pulse Oximetry 100 Intake & Output 03/10/18 03/11/18 03/11/18 18:59 06:59 18:59 Intake Total 3100 / 3100 360 / 360 250 / 250 Output Total 400 / 400 480 / 480 Balance 2700 / 2700 -120 / -120 250 / 250 Weight 83.7 kg Intake: IV 3100 / 3100 250 / 250 NS Inj 1,000 ML @ 150 mls/hr IV 1999 / 1999 .CONT .Q6H40M SHERRY Rx#:[id number] 1/2 Normal Saline Inj 1,000 ML 1000 / 1000 @ 125 mls/hr IV.CONT .Q8H SHERRY Rx#:[id number] Maxipime Inj 2,000 MG In NS Inj 100 / 100 100 ML @ 200 mls/hr IV.SIG Q24H SHERRY Rx#:[id number] Vancomycin Inj 900 MG In NS Inj 250 / 250 250 ML @ 250 mls/hr IV.SIG Q24H SHERRY Rx#:[id number] Oral 360 / 360 Output: Urine 400 / 400 480 / 480 Other: Date of Last Bowel Movement 03/10/18 03/10/18 03/10/18 # Bowel Movements 0 Result Diagrams: 03/11/18 04:30 03/11/18 04:30 Laboratory Results: Laboratory Results - last 24 hr 03/11/18 03/11/18 03/11/18 04:30 04:30 12:32 WBC 6.7 RBC 2.49 L Hgb 7.8 L Hct 23.5 L MCV 94.6 MCH 31.4 MCHC 33.2 RDW 21.7 H Plt Count 222 MPV 8.1 Neut % (Auto) 96.4 H Lymph % (Auto) 1.4 L [place] % (Auto) 2.0 Eos % (Auto) 0.0 Baso % (Auto) 0.2 Neut # (Auto) 6.4 Lymph # (Auto) 0.1 L [place] # (Auto) 0.1 Eos # (Auto) 0.0 Baso # (Auto) 0.0 WBC Differential . Differential Comment Auto diff final Sodium 145 Potassium 4.0 Chloride 111 H Carbon Dioxide 26.8 Anion Gap 7 BUN 20 H Creatinine 0.86 Estimated GFR 63 L Random Glucose 167 H Calcium 8.5 Blood Type A Negative Blood Type Recheck Required Antibody Screen Negative MTS Gel Crossmatch See Detail Culture Results: Microbiology 03/09/18 13:10 Aerobic Blood Culture - Preliminary Blood - Peripheral No growth in 2 days Anaerobic Blood Culture - Preliminary No growth in 2 days 03/09/18 13:00 Aerobic Blood Culture - Preliminary Blood - Peripheral No growth in 2 days Anaerobic Blood Culture - Preliminary No growth in 2 days Medications: Active Medications Generic Name Dose Route Start Last Admin Trade Name Freq PRN Reason Stop Dose Admin Albuterol 1 ampul 03/10/18 10:00 03/11/18 11:48 Duoneb Neb (Sherry) NEB Not Given Q6HR NEB SHERRY Chlorhexidine Gluconate 3 pack 03/10/18 04:00 03/11/18 08:39 Chlorhexidine 2% Cloth TOPICAL 03/15/18 03:59 Not Given DAILY@0400 SHERRY Cyanocobalamin 1,000 mcg 03/10/18 09:00 03/11/18 08:38 Vitamin B12 PO 1,000 mcg DAILY SHERRY Administration Enoxaparin Sodium 30 mg 03/09/18 15:00 03/10/18 14:10 Lovenox Inj SQ 30 mg Q24H SHERRY Administration Famotidine 20 mg 03/10/18 09:00 03/11/18 08:38 Pepcid PO 20 mg BID SHERRY Administration Fluconazole 200 mg 03/10/18 09:00 03/11/18 08:38 Diflucan PO 200 mg DAILY SHERRY Administration Fluticasone/Vilanterol 1 puff 03/10/18 09:00 03/11/18 08:39 Breo Ellipta 200/25 Mcg Inh INH Not Given DAILY SHERRY Folic Acid 1 mg 03/10/18 09:00 03/11/18 08:38 Folic Acid PO 1 mg DAILY SHERRY Administration Hydromorphone HCl 2 mg 03/09/18 14:21 03/10/18 19:45 Dilaudid PO 2 mg Q6H PRN Administration Pain 3-10 Cefepime HCl 2,000 mg/ Sodium 100 mls @ 200 mls/hr 03/10/18 14:00 03/10/18 13 :40 Chloride IV.SIG Infused Q24H SHERRY Infusion Megestrol Acetate 400 mg 03/10/18 09:00 03/11/18 08:39 Megace Liq PO 400 mg DAILY SHERRY Administration Mirtazapine 15 mg 03/09/18 21:00 03/10/18 20:42 Remeron PO 15 mg HS SHERRY Administration Ondansetron HCl 4 mg 03/09/18 14:24 03/09/18 19:10 Zofran Inj IV.PUSH 4 mg Q6H PRN Administration NAUSEA OR VOMITING Senna/Docusate Sodium 1 tab 03/09/18 21:00 03/11/18 08:38 Micaela-Colace PO 1 tab BID SHERRY Administration Sertraline HCl 50 mg 03/10/18 09:00 03/11/18 08:37 Zoloft PO 50 mg DAILY SHERRY Administration Timolol Maleate 1 drops 03/09/18 21:00 03/10/18 20:43 Timoptic 0.5% Drops EACH EYE 1 drops HS SHERRY Administration Objective Remarks: GENERAL: Elderly, chronically ill female patient, in no acute distress. SKIN: Pale, warm and dry.+ Alopecia. HEAD: Normocephalic. EYES: No scleral icterus. No injection or drainage. NECK: Supple, trachea midline. CARDIOVASCULAR: Regular rate and rhythm without murmurs. RESPIRATORY: Breath sounds decreased, equal bilaterally. Non-labored. GASTROINTESTINAL: Abdomen soft, non-tender, nondistended. EXTREMITIES: No cyanosis, or edema. MUSCULOSKELETAL: Adequate muscle tone. NEUROLOGICAL: No obvious focal deficit. Awake, alert, and oriented x3. PSYCHIATRIC: Appropriate mood and affect; insight and judgment normal. Assessment/Plan - Plan Ms. Dodson is a pleasant 82-year-old female patient with non-small cell lung cancer, stage IV, status post 2 cycles of carboplatin and Alimta chemotherapy as well as palliative radiation therapy for the central lung mass. Currently admitted to the hospital for respiratory distress. Recommendations: 1. Non-small cell lung cancer, stage IV, status post 2 cycles of carboplatin and Alimta chemotherapy as well as palliative radiation therapy. Patient was scheduled for her third cycle of chemotherapy, however this is on hold for acute status change. 2. Respiratory distress, improving. Patient on O2 via nasal cannula. CT was negative for pulmonary embolism, collapsed lung is not reexpanded. Possible radiation pneumonitis, continue Solu-Medrol. 3. Anemia, hemoglobin 7.8 she will receive 1 unit PRBCs today. 4. Repeat CBC in the a.m.
[2018-03-11] MEDS: Enoxaparin Inj 30 MG/0.3 ML Syringe SQ SCH (15:14)
[2018-03-11] MEDS: Vancomycin Inj 1,500 MG in Sodium Chlor 0.9% Inj 500 ML IV.SIG SCH (16:35)
[2018-03-11] MEDS: Mirtazapine 15 MG Tablet PO SCH (20:20)
[2018-03-11] MEDS: Timolol 0.5% Drops 5 ML Bottle EACH EYE SCH (20:21)
[2018-03-12 03:14] LABS: Baso % (Auto) 0.2 % (0.0-2.0); Hematocrit 25.3 % (35.0-46.0); Hemoglobin 8.5 gm/dL (11.6-15.3); Lymph # (Auto) 0.1 th/mm3 (1.0-4.8); Lymph % (Auto) 1.4 % (9.0-44.0); Mean Corpuscular HGB Conc 33.4 % (32.0-36.0); Mean Corpuscular Hemoglobin 31.4 pg (27.0-34.0); Mean Platelet Volume 7.8 fL (7.0-11.0); Mono # (Auto) 0.1 th/mm3 (0.0-0.9); Mono % (Auto) 2.6 % (0.0-8.0); Neut # (Auto) 5.1 th/mm3 (1.8-7.7); Neut % (Auto) 95.8 % (16.0-70.0); Platelet Count 243 th/mm3 (150-450); Red Blood Count 2.69 mil/mm3 (4.00-5.30); Red Cell Distribution Width 18.9 % (11.6-17.2); White Blood Count 5.3 th/mm3 (4.0-11.0)
[2018-03-12 03:35] LABS: Calcium 8.6 mg/dL (8.5-10.1); Carbon Dioxide 27.7 meq/L (21.0-32.0); Potassium 4.3 meq/L (3.5-5.1)
[2018-03-12] MEDS: Chlorhexidine Gluconate 2% 1 Pack (2 Cloths) TOPICAL SCH (05:31)
[2018-03-12] MEDS: Megestrol Acetate Liq 400 MG/10 ML UDC PO SCH (08:54)
[2018-03-12] MEDS: MethylPREDNISolone Sod Succinate Inj 40 MG/ML Vial IV.PUSH SCH (08:56)
[2018-03-12] MEDS: Sertraline 50 MG Tablet PO SCH (08:57)
[2018-03-12] MEDS: Folic Acid 1 MG Tablet PO SCH (08:57)
[2018-03-12] MEDS: Famotidine 20 MG Tablet PO SCH ×2 (08:57→22:40)
[2018-03-12] MEDS: Senna/Docusate Sodium 8.6/50 MG Tablet PO SCH ×2 (09:39→22:40)
--- NOTE | 2018-03-12 09:40 | P.PN ---
Subjective Interval history: This is a pleasant 82 y/o Female who is been admitted to Intensive Care Unit, has Acute Respiratory failure on Home Oxygen for Lung cancer and COPD, CTA chest: No pulmonary embolus identified; There is soft tissue in the right deedee presumably representing remnants of the patient's known malignancy; There is extensive atelectasis of the right middle and right lower lobe with minimal effusion; There is elevation of the right hemidiaphragm; There is minimal pericardial effusion. Recent echo with normal EF. Lactic acid elevated. S/p cefepime in the ED. Pulmonology specialist following. 03/12: followed by fulfillment specialist he has NSCLC Stage IV post 2 cycles of Carboplatin and Alimta Chemotherapy and palliative Radiation therapy, possible Radiation Pneumonitis, continue Solu-Medrol, for Anemia hemoglobin 7.8 received one unit of PRBCs. Seen in her bedroom in Intensive Care Unit, stable nurse Miss Masters Present, Offered Protein Boost and refuse to take it. No nausea , vomit or diarrhea, encourage ambulation. Physical Exam Vital signs: Vital Signs 03/11/18 10:00 03/11/18 11:00 03/11/18 12:00 Temperature 98.0 F Pulse Rate 108 H 92 H 90 Respiratory Rate 23 14 16 Blood Pressure 120/57 L 128/60 137/63 Pulse Oximetry 93 L 100 100 03/11/18 13:00 03/11/18 14:00 03/11/18 15:00 Temperature Pulse Rate 91 H 94 H 96 H Respiratory Rate 17 21 19 Blood Pressure 146/64 H 144/64 H Pulse Oximetry 100 100 100 03/11/18 15:01 03/11/18 16:00 03/11/18 16:19 Temperature Pulse Rate 99 H 105 H 105 H Respiratory Rate 25 H 25 H Blood Pressure 126/55 L 140/65 Pulse Oximetry 100 100 03/11/18 16:26 03/11/18 16:28 03/11/18 16:58 Temperature 97.9 F Pulse Rate 106 H 110 H Respiratory Rate 24 34 H Blood Pressure 134/64 Pulse Oximetry 99 03/11/18 17:00 03/11/18 17:18 03/11/18 17:19 Temperature 97.8 F Pulse Rate 110 H 120 H 120 H Respiratory Rate 23 26 H 23 Blood Pressure 134/64 137/66 137/66 Pulse Oximetry 100 98 03/11/18 18:00 03/11/18 19:00 03/11/18 19:56 Temperature Pulse Rate 109 H 114 H 100 H Respiratory Rate 20 38 H 20 Blood Pressure 128/61 Pulse Oximetry 100 97 96 03/11/18 20:00 03/11/18 21:00 03/11/18 22:00 Temperature 98.3 F Pulse Rate 116 H 121 H 117 H Respiratory Rate 20 20 32 H Blood Pressure 143/79 H 132/68 137/67 Pulse Oximetry 96 96 96 03/11/18 23:00 03/12/18 00:00 03/12/18 01:00 Temperature 98.4 F Pulse Rate 115 H 104 H 114 H Respiratory Rate 26 H 28 H 36 H Blood Pressure 145/78 H 148/89 H Pulse Oximetry 96 97 03/12/18 01:01 03/12/18 01:02 03/12/18 02:00 Temperature Pulse Rate 110 H 104 H 93 H Respiratory Rate 31 H 26 H 19 Blood Pressure 163/101 H 178/89 H Pulse Oximetry 97 97 98 03/12/18 02:07 03/12/18 03:00 03/12/18 03:19 Temperature Pulse Rate 97 H 88 98 H Respiratory Rate 23 18 20 Blood Pressure 137/64 120/59 L Pulse Oximetry 95 99 03/12/18 04:00 03/12/18 06:00 Temperature 98 F Pulse Rate 92 H 90 Respiratory Rate 16 Blood Pressure 122/61 Pulse Oximetry 97 Intake & Output 03/11/18 03/12/18 03/12/18 18:59 06:59 18:59 Intake Total 1345 / 1345 520 / 520 Balance 1345 / 1345 520 / 520 Weight 84.1 kg Intake: IV 865 / 865 Maxipime Inj 2,000 MG In NS Inj 100 / 100 100 ML @ 200 mls/hr IV.SIG Q24H JENNIFER Rx#:[id number] Vancomycin Inj 900 MG In NS Inj 250 / 250 250 ML @ 250 mls/hr IV.SIG Q24H JENNIFER Rx#:[id number] Vancomycin Inj 1,500 MG In NS 515 / 515 Inj 500 ML @ 250 mls/hr IV.SIG Q24H JENNIFER Rx#:[id number] Oral 480 / 480 120 / 120 Intake (Blood Product) Amt 0 / 0 400 / 400 Rbc As-3 Leukoreduced Unit 0 / 0 400 / 400 [id number] Other: # Voids 3 3 Date of Last Bowel Movement 03/11/18 03/11/18 # Bowel Movements 0 0 Narrative: GENERAL: No distress. SKIN: Focused skin assessment warm/dry. HEAD: Atraumatic. Normocephalic. EYES: Pupils equal and round. No scleral icterus. No injection or drainage. ENT: No nasal bleeding or discharge. Mucous membranes pink and moist. NECK: Trachea midline. cardiovascular: Tachycardic, no murmur appreciated. RESPIRATORY: Clear to auscultation bilaterally. GASTROINTESTINAL: Abdomen soft, non-tender, nondistended. MUSCULOSKELETAL: No obvious deformities. No clubbing. No cyanosis. No edema. NEUROLOGICAL: Awake. Motor grossly within normal limits. Normal speech. Results - Labs CBC & Chem 7: 03/12/18 02:45 03/12/18 02:45 Laboratory Results - last 24 hr 03/11/18 03/12/18 03/12/18 12:32 02:45 02:45 WBC 5.3 RBC 2.69 L Hgb 8.5 L Hct 25.3 L MCV 94.0 MCH 31.4 MCHC 33.4 RDW 18.9 H D Plt Count 243 MPV 7.8 Neut % (Auto) 95.8 H Lymph % (Auto) 1.4 L Nicholas % (Auto) 2.6 Eos % (Auto) 0.0 Baso % (Auto) 0.2 Neut # (Auto) 5.1 Lymph # (Auto) 0.1 L Nicholas # (Auto) 0.1 Eos # (Auto) 0.0 Baso # (Auto) 0.0 WBC Differential . Differential Comment Auto diff final Sodium 147 H Potassium 4.3 Chloride 113 H Carbon Dioxide 27.7 Anion Gap 6 BUN 15 Creatinine 0.75 Estimated GFR 74 L Random Glucose 141 H Calcium 8.6 Magnesium 2.0 Blood Type A Negative Blood Type Recheck Required Antibody Screen Negative MTS Gel Crossmatch See Detail Microbiology 03/09/18 13:10 Blood - Peripheral Aerobic Blood Culture - Preliminary No growth in 2 days 03/09/18 13:10 Blood - Peripheral Anaerobic Blood Culture - Preliminary No growth in 2 days 03/09/18 13:00 Blood - Peripheral Aerobic Blood Culture - Preliminary No growth in 2 days 03/09/18 13:00 Blood - Peripheral Anaerobic Blood Culture - Preliminary No growth in 2 days - Imaging Chest Ultrasound 03/09/18 13:45 CONCLUSION: 1. There is only very minimal fluid at the right lung base. There is significant elevation of the right hemidiaphragm. Chest CTA 03/09/18 14:11 CONCLUSION: 1. No pulmonary embolus identified. 2. There is soft tissue in the right deedee presumably representing remnants of the patient's known malignancy. There is extensive atelectasis of the right middle and right lower lobe with minimal effusion. 3. There is elevation of the right hemidiaphragm. 4. There is minimal pericardial effusion. Chest X-Ray 03/10/18 08:30 CONCLUSION: Continued consolidation and an elevated right hemidiaphragm better seen on the recent CTA. Left lung remains clear. Assessment and Plan - Plan Acute respiratory failure The patient is at home with Home Oxygen, for COPD and Lung Cancer, came with SOB CTA chest: No pulmonary embolus identified; There is soft tissue in the right deedee presumably representing remnants of the patient's known malignancy; There is extensive atelectasis of the right middle and right lower lobe with minimal effusion; There is elevation of the right hemidiaphragm; There is minimal pericardial effusion. Recent echo with normal EF. Lactic acid elevated. S/p cefepime in the ED. Pulmonology specialist Following. continue Bronchodilator, Mucolytic, incentive spirometry. Steroids. Sepsis/Hypotension Improved. Likely s/t underlying pneumonia and dehydration. Improved with IVFs and antibiotics. -continue vancomycin and cefepime. Continue probiotics as has a history of C diff. -s/p IVFs. -follow cultures. -resume Coreg as blood pressure has been normal to slightly elevated. NSCLC Stage IV post 2 cycles of Carboplatin and Alimta Chemotherapy and palliative Radiation therapy, possible Radiation Pneumonitis, continue Solu-Medrol, for Anemia hemoglobin 7.8 received one unit of PRBCs. -PT eval. Rehab recommended. Acute Renal Injury Improved. Hyperglycemia Likely a stress reaction. -Monitor BMP while on steroids. -wean steroids. PPx: Lovenox Encourage Ambulation Code Status: Full code. Discussed Condition With: Patient and Nurse Miss Masters Discharge Planning: Once cleared by specialists.
[2018-03-12] MEDS: Vancomycin Inj 1,500 MG in Sodium Chlor 0.9% Inj 500 ML IV.SIG SCH (15:18)
[2018-03-12] MEDS: Enoxaparin Inj 30 MG/0.3 ML Syringe SQ SCH (15:18)
--- NOTE | 2018-03-12 17:17 | P.PNONC ---
Subjective Interval history: Patient states that her breathing is better. Denies any cough Patient has not walked as yet Objective Vital Signs/Intake & Output: Vital Signs 03/11/18 17:18 03/11/18 17:19 03/11/18 18:00 Temperature 97.8 F Pulse Rate 120 H 120 H 109 H Respiratory Rate 26 H 23 20 Blood Pressure 137/66 137/66 128/61 Pulse Oximetry 98 100 03/11/18 19:00 03/11/18 19:56 03/11/18 20:00 Temperature 98.3 F Pulse Rate 114 H 100 H 116 H Respiratory Rate 38 H 20 20 Blood Pressure 143/79 H Pulse Oximetry 97 96 96 03/11/18 21:00 03/11/18 22:00 03/11/18 23:00 Temperature Pulse Rate 121 H 117 H 115 H Respiratory Rate 20 32 H 26 H Blood Pressure 132/68 137/67 145/78 H Pulse Oximetry 96 96 96 03/12/18 00:00 03/12/18 01:00 03/12/18 01:01 Temperature 98.4 F Pulse Rate 104 H 114 H 110 H Respiratory Rate 28 H 36 H 31 H Blood Pressure 148/89 H 163/101 H Pulse Oximetry 97 97 03/12/18 01:02 03/12/18 02:00 03/12/18 02:07 Temperature Pulse Rate 104 H 93 H 97 H Respiratory Rate 26 H 19 23 Blood Pressure 178/89 H 137/64 Pulse Oximetry 97 98 95 03/12/18 03:00 03/12/18 03:19 03/12/18 04:00 Temperature 98 F Pulse Rate 88 98 H 92 H Respiratory Rate 18 20 16 Blood Pressure 120/59 L 122/61 Pulse Oximetry 99 97 03/12/18 05:00 03/12/18 05:01 03/12/18 06:00 Temperature Pulse Rate 93 H 96 H 91 H Respiratory Rate 26 H 17 21 Blood Pressure 128/71 Pulse Oximetry 96 95 99 03/12/18 06:10 03/12/18 07:00 03/12/18 07:08 Temperature Pulse Rate 93 H 96 H 100 H Respiratory Rate 19 19 26 H Blood Pressure 138/66 160/102 H Pulse Oximetry 99 98 99 03/12/18 07:09 03/12/18 07:10 03/12/18 07:27 Temperature Pulse Rate 97 H 97 H 95 H Respiratory Rate 25 H 26 H 27 H Blood Pressure 180/87 H 184/80 H 186/80 H Pulse Oximetry 98 98 98 03/12/18 07:29 03/12/18 08:00 03/12/18 09:00 Temperature 97.5 F L Pulse Rate 99 H 88 104 H Respiratory Rate 26 H 15 28 H Blood Pressure 174/79 H 155/74 H 177/79 H Pulse Oximetry 97 97 96 03/12/18 10:00 03/12/18 10:01 03/12/18 10:47 Temperature Pulse Rate 90 90 80 Respiratory Rate 26 H 24 14 Blood Pressure 168/78 H Pulse Oximetry 97 97 96 03/12/18 11:00 03/12/18 11:01 03/12/18 12:00 Temperature 97.5 F L Pulse Rate 84 83 82 Respiratory Rate 16 15 13 Blood Pressure 141/67 H 142/69 H Pulse Oximetry 96 96 96 03/12/18 13:00 03/12/18 14:00 03/12/18 15:00 Temperature Pulse Rate 83 96 H 85 Respiratory Rate 14 20 18 Blood Pressure 144/65 H 147/70 H 138/63 Pulse Oximetry 96 93 L 96 03/12/18 16:00 Temperature 98.4 F Pulse Rate 91 H Respiratory Rate 24 Blood Pressure 143/65 H Pulse Oximetry 96 Intake & Output 03/11/18 03/12/18 03/12/18 18:59 06:59 18:59 Intake Total 1345 / 1345 570 / 570 100 / 100 Balance 1345 / 1345 570 / 570 100 / 100 Weight 84.1 kg Intake: IV 865 / 865 50 / 50 100 / 100 Maxipime Inj 2,000 MG In NS Inj 100 / 100 100 / 100 100 ML @ 200 mls/hr IV.SIG Q12HR JENN[facility]ER Rx#:[id number] NS Inj 250 ML @ 15 mls/hr IV. 50 / 50 SIG ONCE JENNIFER Rx#:[id number] Vancomycin Inj 900 MG In NS Inj 250 / 250 250 ML @ 250 mls/hr IV.SIG Q24H JENNIFER Rx#:[id number] Vancomycin Inj 1,500 MG In NS 515 / 515 Inj 500 ML @ 250 mls/hr IV.SIG Q24H JENNIFER Rx#:[id number] Oral 480 / 480 120 / 120 Intake (Blood Product) Amt 0 / 0 400 / 400 Rbc As-3 Leukoreduced Unit 0 / 0 400 / 400 [id number] Other: # Voids 3 3 Date of Last Bowel Movement 03/11/18 03/11/18 03/11/18 # Bowel Movements 0 0 Result Diagrams: 03/12/18 02:45 03/12/18 02:45 Laboratory Results: Laboratory Results - last 24 hr 03/11/18 03/12/18 03/12/18 12:32 02:45 02:45 WBC 5.3 RBC 2.69 L Hgb 8.5 L Hct 25.3 L MCV 94.0 MCH 31.4 MCHC 33.4 RDW 18.9 H D Plt Count 243 MPV 7.8 Neut % (Auto) 95.8 H Lymph % (Auto) 1.4 L Parmer % (Auto) 2.6 Eos % (Auto) 0.0 Baso % (Auto) 0.2 Neut # (Auto) 5.1 Lymph # (Auto) 0.1 L Parmer # (Auto) 0.1 Eos # (Auto) 0.0 Baso # (Auto) 0.0 WBC Differential . Differential Comment Auto diff final Sodium 147 H Potassium 4.3 Chloride 113 H Carbon Dioxide 27.7 Anion Gap 6 BUN 15 Creatinine 0.75 Estimated GFR 74 L Random Glucose 141 H Calcium 8.6 Magnesium 2.0 MTS Gel Crossmatch See Detail Culture Results: Microbiology 03/09/18 13:10 Aerobic Blood Culture - Preliminary Blood - Peripheral No growth in 3 days Anaerobic Blood Culture - Preliminary No growth in 3 days 03/09/18 13:00 Aerobic Blood Culture - Preliminary Blood - Peripheral No growth in 3 days Anaerobic Blood Culture - Preliminary No growth in 3 days Medications: Active Medications Generic Name Dose Route Start Last Admin Trade Name Freq PRN Reason Stop Dose Admin Carvedilol 3.125 mg 03/09/18 21:00 03/12/18 08:57 Coreg PO 3.125 mg BID ON LICENSE OF [facility] Administration Chlorhexidine Gluconate 3 pack 03/10/18 04:00 03/12/18 05:31 Chlorhexidine 2% Cloth TOPICAL 03/15/18 03:59 3 pack DAILY@0400 ON LICENSE OF [facility] Administration Cyanocobalamin 1,000 mcg 03/10/18 09:00 03/12/18 08:57 Vitamin B12 PO 1,000 mcg DAILY JENNIFER Administration Enoxaparin Sodium 30 mg 03/09/18 15:00 03/12/18 15:18 Lovenox Inj SQ 30 mg Q24H JENNIFER Administration Famotidine 10 mg 03/11/18 21:00 03/12/18 08:57 Pepcid PO 10 mg BID JENNIFER Administration Fluconazole 200 mg 03/10/18 09:00 03/12/18 08:57 Diflucan PO 200 mg DAILY JENNIFER Administration Fluticasone/Vilanterol 1 puff 03/10/18 09:00 03/12/18 09:38 Breo Ellipta 200/25 Mcg Inh INH 1 puff DAILY JENNIFER Administration Folic Acid 1 mg 03/10/18 09:00 03/12/18 08:57 Folic Acid PO 1 mg DAILY JENNIFER Administration Hydromorphone HCl 2 mg 03/09/18 14:21 03/12/18 09:39 Dilaudid PO 2 mg Q6H PRN Administration Pain 3-10 Vancomycin HCl 1,500 mg/ 515 mls @ 250 mls/hr 03/11/18 15:00 03/12/18 15:18 Sodium Chloride IV.SIG 250 mls/hr Q24H JENNIFER Administration Cefepime HCl 2,000 mg/ Sodium 100 mls @ 200 mls/hr 03/12/18 10:00 03/12/18 11 :00 Chloride IV.SIG Infused Q12HR JENNIFER Infusion Megestrol Acetate 400 mg 03/10/18 09:00 03/12/18 08:54 Megace Liq PO 400 mg DAILY JENNIFER Administration Mirtazapine 15 mg 03/09/18 21:00 03/11/18 20:20 Remeron PO 15 mg HS JENNIFER Administration Ondansetron HCl 4 mg 03/09/18 14:24 03/09/18 19:10 Zofran Inj IV.PUSH 4 mg Q6H PRN Administration NAUSEA OR VOMITING Senna/Docusate Sodium 1 tab 03/09/18 21:00 03/12/18 09:39 Micaela-Colace PO 1 tab BID JENNIFER Administration Sertraline HCl 50 mg 03/10/18 09:00 03/12/18 08:57 Zoloft PO 50 mg DAILY JENNIFER Administration Timolol Maleate 1 drops 03/09/18 21:00 03/11/18 20:21 Timoptic 0.5% Drops EACH EYE 1 drops HS JENNIFER Administration Objective Remarks: GENERAL: Elderly chronically ill-appearing patient. SKIN: Warm and dry. HEAD: Normocephalic. EYES: No scleral icterus. No injection or drainage. NECK: Supple, trachea midline. No JVD or lymphadenopathy. LYMPHATIC: No adenopathy. CARDIOVASCULAR: Regular rate and rhythm without murmurs. RESPIRATORY: Breath sounds equal bilaterally. No accessory muscle use. GASTROINTESTINAL: Abdomen soft, non-tender, nondistended. EXTREMITIES: No cyanosis, or edema. NEUROLOGICAL: No obvious focal deficit. Awake, alert, and oriented x3. PSYCHIATRIC: Appropriate mood and affect; insight and judgment normal. Assessment/Plan - Plan Ms. Dodson is a pleasant 82-year-old female patient with non-small cell lung cancer, stage IV, status post 2 cycles of carboplatin and Alimta chemotherapy as well as palliative radiation therapy for the central lung mass. Currently admitted to the hospital for respiratory distress. Recommendations: 1. Non-small cell lung cancer, stage IV, status post 2 cycles of carboplatin and Alimta chemotherapy as well as palliative radiation therapy. Patient was scheduled for her third cycle of chemotherapy, however this is on hold for acute status change. 2. Respiratory distress, improving. Patient on O2 via nasal cannula. CT was negative for pulmonary embolism, collapsed lung is not reexpanded. Possible radiation pneumonitis, continue Solu-Medrol. 3. Anemia, hemoglobin 7.8 she will receive 1 unit PRBCs today. 4. Repeat CBC in the a.m. 03/12/2018 Patient's shortness of breath has improved She is feeling much better Hemoglobin has improved after 1 unit of blood transfusion yesterday Patient can be transferred to the floor so that she can ambulate No oncology intervention is required at this time.
[2018-03-12] MEDS: Mirtazapine 15 MG Tablet PO SCH (22:40)
[2018-03-12] MEDS: predniSONE 20 MG Tablet PO SCH (22:40)
[2018-03-12] MEDS: Timolol 0.5% Drops 5 ML Bottle EACH EYE SCH (22:56)
[2018-03-13] MEDS: Chlorhexidine Gluconate 2% 1 Pack (2 Cloths) TOPICAL SCH (05:34)
[2018-03-13] MEDS: Famotidine 20 MG Tablet PO SCH ×2 (08:35→20:42)
[2018-03-13] MEDS: Folic Acid 1 MG Tablet PO SCH (08:35)
[2018-03-13] MEDS: predniSONE 20 MG Tablet PO SCH ×2 (08:36→20:43)
[2018-03-13] MEDS: Megestrol Acetate Liq 400 MG/10 ML UDC PO SCH (08:36)
[2018-03-13] MEDS: Sertraline 50 MG Tablet PO SCH (08:36)
[2018-03-13] MEDS: Senna/Docusate Sodium 8.6/50 MG Tablet PO SCH ×2 (08:37→21:00)
[2018-03-13] MEDS ORDERED: Pharmacy Ordered Lab Info OTHER ONE (14:45)
[2018-03-13] MEDS: Enoxaparin Inj 30 MG/0.3 ML Syringe SQ SCH (15:16)
[2018-03-13] MEDS: Vancomycin Inj 1,500 MG in Sodium Chlor 0.9% Inj 500 ML IV.SIG SCH (15:16)
--- NOTE | 2018-03-13 15:22 | P.PNIM ---
Physical Exam Vital signs: Last Vital Signs Temp 97.6 F 03/13/18 12:00 Pulse 93 H 03/13/18 13:11 Resp 16 03/13/18 13:11 BP 134/92 H 03/13/18 08:00 Pulse Ox 96 03/13/18 12:00 Intake & Output 03/11/18 03/12/18 03/13/18 03/14/18 06:59 06:59 06:59 06:59 Intake Total 3460 / 3460 1914 1435 / 1435 100 / 100 Output Total 880 / 880 Balance 2580 / 2580 1914 1435 / 1435 100 / 100 Weight 83.7 kg 84.1 kg 86 kg Narrative: GENERAL: Well-nourished well-developed white female on nasal cannula in no acute distress SKIN: Focused skin assessment warm/dry cardiovascular: Regular rate and rhythm, no murmur appreciated. RESPIRATORY: Clear to auscultation bilaterally. GASTROINTESTINAL: Abdomen soft, non-tender, nondistended. Normoactive bowel sounds MUSCULOSKELETAL: No obvious deformities. No clubbing. No cyanosis. Trace edema NEUROLOGICAL: Awake. Motor grossly within normal limits. Normal speech. Results Labs CBC & Chem 7: 03/12/18 02:45 03/12/18 02:45 Labs: Microbiology 03/09/18 13:10 Blood - Peripheral Aerobic Blood Culture - Preliminary No growth in 4 days 03/09/18 13:10 Blood - Peripheral Anaerobic Blood Culture - Preliminary No growth in 4 days 03/09/18 13:00 Blood - Peripheral Aerobic Blood Culture - Preliminary No growth in 4 days 03/09/18 13:00 Blood - Peripheral Anaerobic Blood Culture - Preliminary No growth in 4 days Assessment and Plan (1) Sepsis: Code(s): A41.9 - Sepsis, unspecified organism Status: Resolved (2) Acute and chronic respiratory failure: Code(s): J96.20 - Acute and chronic respiratory failure, unspecified whether with hypoxia or hypercapnia Status: Acute (3) Community acquired pneumonia: Code(s): J18.9 - Pneumonia, unspecified organism Status: Acute (4) 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 She currently has non-small cell lung carcinoma stage IV post 2 cycles of chemo and palliative radiation with underlying possible radiation pneumonitis Acute on chronic respiratory failure -patient is now weaned down to 4 L, continue vancomycin and cefepime IV for underlying community acquired pneumonia. Dr. Wolff, catalyst recovery operator following CTA of the chest to rule out pulmonary embolism. Sepsis present on admission due to neutropenia and tachycardia with source of community acquired pneumonia in a patient with immunosuppression Continue with IV cefepime and vancomycin and Diflucan. Continue probiotics as a history of C. difficile. Blood cultures no growth to date NSCLC Stage IV post 2 cycles of Carboplatin and Alimta Chemotherapy and palliative Radiation therapy, per oncology will be holding third cycle of chemo at this time until infection resolves. Acute anemia with history of chronic anemia due to lung cancer on chemo hemoglobin 7.8 on 03/11 received one unit of PRBCs. Repeat hemoglobin stable 8.5 on 03/12, will repeat hemoglobin the morning - Acute Renal Injury Improved and resolved. Hyperglycemia Likely a stress reaction. -Monitor BMP while on steroids. -wean steroids. Sliding scale insulin DVT prophylaxisLovenox Discussed Condition With: Daughter at bedside Progress Note: Quality VTE Deep Vein Thrombosis/Pulmonary Embolism Present on Admission: No _ (1) Community acquired pneumonia Qualifiers: Laterality: Lung location: (2) Lung cancer Qualifiers: Laterality: Lung location:
--- NOTE | 2018-03-13 18:07 | P.PN ---
Subjective Interval history: ALERT NAD ON O2 NC Physical Exam Vital signs: Vital Signs 03/12/18 20:00 03/12/18 20:08 03/12/18 20:09 Temperature 97.6 F Pulse Rate 91 H 95 H Respiratory Rate 21 20 Blood Pressure 160/82 H Pulse Oximetry 97 99 03/13/18 04:00 03/13/18 07:58 03/13/18 08:00 Temperature 98.2 F 97.1 F L Pulse Rate 92 H 92 H Respiratory Rate 20 14 Blood Pressure 162/70 H 134/92 H Pulse Oximetry 97 99 97 03/13/18 12:00 03/13/18 13:11 Temperature 97.6 F Pulse Rate 89 93 H Respiratory Rate 15 16 Blood Pressure Pulse Oximetry 96 Intake & Output 03/12/18 03/13/18 03/13/18 18:59 06:59 18:59 Intake Total 615 / 615 820 / 820 100 / 100 Balance 615 / 615 820 / 820 100 / 100 Weight 86 kg Intake: IV 615 / 615 100 / 100 100 / 100 Maxipime Inj 2,000 MG In NS Inj 100 / 100 100 / 100 100 / 100 100 ML @ 200 mls/hr IV.SIG Q12HR JENNIFER Rx#:[id number] Vancomycin Inj 1,500 MG In NS 515 / 515 Inj 500 ML @ 250 mls/hr IV.SIG Q24H JENNIFER Rx#:[id number] Oral 720 / 720 Other: # Voids 4 Date of Last Bowel Movement 03/11/18 03/11/18 03/11/18 Narrative: GENERAL: Well-nourished well-developed white female on nasal cannula in no acute distress SKIN: Focused skin assessment warm/dry cardiovascular: Regular rate and rhythm, no murmur appreciated. RESPIRATORY: Clear to auscultation bilaterally. GASTROINTESTINAL: Abdomen soft, non-tender, nondistended. Normoactive bowel sounds MUSCULOSKELETAL: No obvious deformities. No clubbing. No cyanosis. Trace edema NEUROLOGICAL: Awake. Motor grossly within normal limits. Normal speech. Results - Labs CBC & Chem 7: 03/12/18 02:45 03/12/18 02:45 Laboratory Results - last 24 hr 03/12/18 03/13/18 22:53 14:55 POC Glucose 192 H Vancomycin Trough 14.6 H Microbiology 03/09/18 13:10 Blood - Peripheral Aerobic Blood Culture - Preliminary No growth in 4 days 03/09/18 13:10 Blood - Peripheral Anaerobic Blood Culture - Preliminary No growth in 4 days 03/09/18 13:00 Blood - Peripheral Aerobic Blood Culture - Preliminary No growth in 4 days 03/09/18 13:00 Blood - Peripheral Anaerobic Blood Culture - Preliminary No growth in 4 days Assessment and Plan - Plan RESPIRATORY FAILURE COPD LUNG CA PLAN O2 NEEDED BRONCHODILATORS INCREASE ACTIVITY
[2018-03-13] MEDS: Mirtazapine 15 MG Tablet PO SCH (20:43)
[2018-03-13] MEDS: Timolol 0.5% Drops 5 ML Bottle EACH EYE SCH (20:43)
[2018-03-14 06:35] LABS: Baso % (Auto) 0.1 % (0.0-2.0); Hematocrit 31.1 % (35.0-46.0); Hemoglobin 10.3 gm/dL (11.6-15.3); Lymph # (Auto) 0.2 th/mm3 (1.0-4.8); Lymph % (Auto) 2.5 % (9.0-44.0); Mean Corpuscular HGB Conc 33.2 % (32.0-36.0); Mean Corpuscular Hemoglobin 31.6 pg (27.0-34.0); Mean Platelet Volume 7.6 fL (7.0-11.0); Mono # (Auto) 0.9 th/mm3 (0.0-0.9); Mono % (Auto) 8.7 % (0.0-8.0); Neut # (Auto) 8.8 th/mm3 (1.8-7.7); Neut % (Auto) 88.7 % (16.0-70.0); Platelet Count 307 th/mm3 (150-450); Red Blood Count 3.27 mil/mm3 (4.00-5.30); Red Cell Distribution Width 19.9 % (11.6-17.2)
[2018-03-14 09:15] LABS: Lymphocytes 2 % (9-44); Monocytes 5 % (0-8); Myelocytes 2 % (0-0); Tallied Nucleated RBC 3 (0-0)
[2018-03-14 09:17] LABS: Dimorphic RBC Present; Ovalocytes 1+; Platelet Estimate Normal (Normal); Platelet Morphology Normal (Normal)
[2018-03-14] MEDS: Chlorhexidine Gluconate 2% 1 Pack (2 Cloths) TOPICAL SCH (09:21)
[2018-03-14] MEDS: Famotidine 20 MG Tablet PO SCH ×2 (09:24→21:24)
[2018-03-14] MEDS: Sertraline 50 MG Tablet PO SCH (09:24)
[2018-03-14] MEDS: Senna/Docusate Sodium 8.6/50 MG Tablet PO SCH ×2 (09:24→21:33)
[2018-03-14] MEDS: Folic Acid 1 MG Tablet PO SCH (09:24)
[2018-03-14] MEDS: Megestrol Acetate Liq 400 MG/10 ML UDC PO SCH (09:24)
[2018-03-14] MEDS: predniSONE 20 MG Tablet PO SCH ×2 (09:24→21:24)
--- NOTE | 2018-03-14 14:12 | P.PN ---
Subjective Interval history: in chair NAD O2 N/C Physical Exam Vital signs: Vital Signs 03/13/18 16:00 03/13/18 20:00 03/13/18 21:43 Temperature 97.4 F L 98.0 F Pulse Rate 106 H 95 H 98 H Respiratory Rate 19 20 16 Blood Pressure 145/89 H 138/80 Pulse Oximetry 96 97 95 03/14/18 00:00 03/14/18 04:00 03/14/18 07:56 Temperature 98.4 F 97.0 F L Pulse Rate 94 H 107 H 107 H Respiratory Rate 22 22 18 Blood Pressure 145/83 H 165/101 H Pulse Oximetry 97 95 03/14/18 08:00 Temperature 97.8 F Pulse Rate 96 H Respiratory Rate 32 H Blood Pressure 153/84 H Pulse Oximetry 96 Intake & Output 03/13/18 03/14/18 03/14/18 18:59 06:59 18:59 Intake Total 615 / 615 340 / 340 100 / 100 Balance 615 / 615 340 / 340 100 / 100 Intake: IV 615 / 615 100 / 100 100 / 100 Maxipime Inj 2,000 MG In NS Inj 100 / 100 100 / 100 100 / 100 100 ML @ 200 mls/hr IV.SIG Q12HR JENNIFER Rx#:[id number] Vancomycin Inj 1,500 MG In NS 515 / 515 Inj 500 ML @ 250 mls/hr IV.SIG Q24H JENNIFER Rx#:[id number] Oral 240 / 240 Other: # Voids 2 Date of Last Bowel Movement 03/13/18 03/13/18 03/13/18 # Bowel Movements 1 Narrative: GENERAL: Well-nourished well-developed white female on nasal cannula in no acute distress SKIN: Focused skin assessment warm/dry cardiovascular: Regular rate and rhythm, no murmur appreciated. RESPIRATORY: Clear to auscultation bilaterally. GASTROINTESTINAL: Abdomen soft, non-tender, nondistended. Normoactive bowel sounds MUSCULOSKELETAL: No obvious deformities. No clubbing. No cyanosis. Trace edema NEUROLOGICAL: Awake. Motor grossly within normal limits. Normal speech. Results - Labs CBC & Chem 7: 03/14/18 06:10 03/12/18 02:45 Laboratory Results - last 24 hr 03/13/18 03/14/18 03/14/18 14:55 06:10 08:24 WBC 10.0 RBC 3.27 L Hgb 10.3 L Hct 31.1 L MCV 95.0 MCH 31.6 MCHC 33.2 RDW 19.9 H Plt Count 307 MPV 7.6 Prelim Diff (Auto) Slide review pending Neut % (Auto) 88.7 H Lymph % (Auto) 2.5 L [place] % (Auto) 8.7 H Eos % (Auto) 0.0 Baso % (Auto) 0.1 Neut # (Auto) 8.8 H Lymph # (Auto) 0.2 L [place] # (Auto) 0.9 Eos # (Auto) 0.0 Baso # (Auto) 0.0 WBC Differential Manual diff final Seg Neuts % (Manual) 88 H Band Neuts % (Manual) 3 Lymphocytes % (Manual) 2 L Monocytes % (Manual) 5 Myelocytes % (Man) 2 H Abs Neuts (Manual) 9.3 H Nucleated RBCs/100 WBC 3 H Differential Comment . Platelet Estimate Normal Platelet Morphology Normal Dimorphic RBCs Present H Polychromasia 2.0 H Ovalocytes 1+ H POC Glucose 105 Vancomycin Trough 14.6 H Microbiology 03/09/18 13:10 Blood - Peripheral Aerobic Blood Culture - Final No growth in 5 days 03/09/18 13:10 Blood - Peripheral Anaerobic Blood Culture - Final No growth in 5 days 03/09/18 13:00 Blood - Peripheral Aerobic Blood Culture - Final No growth in 5 days 03/09/18 13:00 Blood - Peripheral Anaerobic Blood Culture - Final No growth in 5 days 03/13/18 16:40 Stool Stool Occult Blood ([facility]) - Final Hemoccult negative Assessment and Plan - Plan RESPIRATORY FAILURE COPD LUNG CA PLAN O2 NEEDED BRONCHODILATORS INCREASE ACTIVITY
[2018-03-14] MEDS: Vancomycin Inj 1,500 MG in Sodium Chlor 0.9% Inj 500 ML IV.SIG SCH (15:22)
[2018-03-14] MEDS: Enoxaparin Inj 30 MG/0.3 ML Syringe SQ SCH (15:22)
[2018-03-14] MEDS: Mirtazapine 15 MG Tablet PO SCH (21:24)
[2018-03-15] MEDS: Timolol 0.5% Drops 5 ML Bottle EACH EYE SCH (06:20)
[2018-03-15] MEDS: Folic Acid 1 MG Tablet PO SCH (08:55)
[2018-03-15] MEDS: Senna/Docusate Sodium 8.6/50 MG Tablet PO SCH (08:56)
[2018-03-15] MEDS: Sertraline 50 MG Tablet PO SCH (08:56)
[2018-03-15] MEDS: Megestrol Acetate Liq 400 MG/10 ML UDC PO SCH (08:56)
[2018-03-15] MEDS: predniSONE 20 MG Tablet PO SCH (08:56)
[2018-03-15] MEDS: Famotidine 20 MG Tablet PO SCH (08:56)
--- NOTE | 2018-03-15 10:39 | P.DS ---
DS: Providers Date of admission: 03/09/18 14:20 Primary care physician: Josiah Will MD Consults: 03/09/18 15:53 HUB Only Consult Order Routine Consulting Provider: [email or web address] 03/09/18 15:58 Consult to Pulmonology Routine Consulting Provider: Luis Daniel Wolff Patient known to:: Luis Daniel Mariana New Reason for Consultation: Acute on chronic respiratory failure Notified:: Office Spoke with:: KELVIN Date Notified:: 03/09/18 Time Notified:: 16:01 Ordering Provider: HUGH 03/09/18 16:28 Consult to Oncology Routine Consulting Provider: Christian Munguia Patient known to:: Zoe Gonzalez Reason for Consultation: Lung cancer, acute respiratory failure Notified:: Service Spoke with:: VANDANA Date Notified:: 03/09/18 Time Notified:: 16:38 Comments:: [phone] Ordering Provider: HUGH Anticipated date of discharge: 03/15/18 Brief History from admission: The patient is an 82-year-old female with a past medical history of lung cancer and COPD who is presenting to the hospital with worsening shortness of breath. The patient was recently discharged from the hospital in December. She is currently on chemotherapy and radiation therapy. She says her last chemotherapy was on February 10 and her last radiation treatment was on February 05. She said she had a CAT scan of her chest last week which showed a decrease in size of the mass. She was unable to go for chemotherapy last Thursday because her blood counts were low and she says she is scheduled for chemotherapy tomorrow. She is on home oxygen, 2 L chronically. The patient says she started to feel poorly on Thursday. She has had increased work of breathing. She has clear phlegm production. She denies any fevers but has had hot flashes and chills. Her home health care nurse came to her house today and was worried that she had fluid around the lungs and a fast heart rate. DS: Diagnosis Discharge Diagnosis (1) Sepsis: Status: Resolved (2) Acute and chronic respiratory failure: Status: Acute (3) Community acquired pneumonia: Status: Acute (4) Immunocompromised: Status: Chronic (5) Lung cancer: Status: Chronic DS: Summary 82-year-old white female was initially admitted to intensive care unit for acute respiratory failure superimposed on chronic respiratory failure with a history of O2 dependence with a history of COPD and lung cancer. She presented with hypotension, hypothermia and tachycardia and suspicious for sepsis due to underlying community acquired pneumonia in a immunosuppressant patient on palliative chemotherapy. She responded well to IV vancomycin and cefepime IV and CTA was done to rule out pulmonary embolism. Pulmonary service was consulted along with her oncologist Dr. Mak which her chemotherapy was placed on hold. Discussed with Dr. Wolff pulmonary prior to discharge who recommended no further antibiotics upon discharge to home due to her risk of C. difficile. she also received 1 unit of packed red blood cell with stable hemoglobin during the hospitalization. Dietary consultation right upper daughter's request with nutrition supplementation. At this time, patient has gained maximum benefit and ready to be transitioned to home. Dr. Wolff recommended 1 week of 20 mg prednisone and followed by 10 mg of prednisone for 1 more week upon discharge. Time Spent with Patient Total time spent providing and/or coordinating discharge services: Quality: VTE Deep Vein Thrombosis/Pulmonary Embolism Present on Admission: No Exam Narrative Exam Narrative: GENERAL: This is a well-nourished, obese, well-developed patient , in no apparent distress. CARDIOVASCULAR: Regular rate and rhythm RESPIRATORY: Relatively clear to auscultation. GASTROINTESTINAL: Abdomen soft, non-tender, nondistended. Normal active bowel sounds MUSCULOSKELETAL: Extremities without clubbing, cyanosis, trace edema NEURO: Alert & Oriented x4 to person, place, time, situation. Moves all ext x4 Results Impressions ITS Impressions Chest Ultrasound 03/09/18 13:45 CONCLUSION: 1. There is only very minimal fluid at the right lung base. There is significant elevation of the right hemidiaphragm. Chest CTA 03/09/18 14:11 CONCLUSION: 1. No pulmonary embolus identified. 2. There is soft tissue in the right [place] presumably representing remnants of the patient's known malignancy. There is extensive atelectasis of the right middle and right lower lobe with minimal effusion. 3. There is elevation of the right hemidiaphragm. 4. There is minimal pericardial effusion. Chest X-Ray 03/10/18 08:30 CONCLUSION: Continued consolidation and an elevated right hemidiaphragm better seen on the recent CTA. Left lung remains clear. Discharge Plan Discharge Disposition Patient Disposition: Discharge Home Discharge Condition Condition: Stable Discharge Order Discharge Orders: Discharge Order (Routine); Ordered 03/15/18 Ordered By: Neda Bernard Discharge Details Anticipated Discharge Date: 03/15/18 Discharge Comment: DC after seen by Dr. Luis Daniel Wolff and oncology Physicians Team ED Provider: Clare Piña Primary Care Provider: Josiah Will Attending Provider: Neda Wagner Other Providers: [facility],Insurance ; Luis Daniel Wolff ; Christian Munguia ; Zoe Gonzalez Rxs /Orders / Referrals /Forms Prescriptions: New prednisone 20 mg tablet 20 mg PO DAILY Qty: 11 RF: 0 Continue hydrocodone-acetaminophen 5-325 mg Tablet 1 tab PO Q4-6H PRN (Reason: Chronic Pain) RF: 0 hyoscyamine sulfate 0.375 mg Tablet Extended Release 12 Hr 0.375 mg PO Q12H PRN (Reason: Colon Spasms) RF: 0 timolol 0.5 % Drops 1 drp EACH EYE HS RF: 0 nystatin 100,000 unit/gram Cream 1 applic TOPICAL DAILY PRN (Reason: Rash) RF: 0 folic acid 1 mg Tablet 1 mg PO DAILY RF: 0 budesonide 3 mg Capsule,Delayed,Extend.Release 3 mg PO Q8HR RF: 0 potassium gluconate 595 mg (99 mg) Tablet 595 mg PO DAILY RF: 0 vit C,N-Iw-ujnhx-lutein-zeaxan [PreserVision AREDS-2] [id number] mg-unit-mg- mg Capsule 1 tab PO DAILY RF: 0 carvedilol [Coreg] 3.125 mg Tablet 3.125 mg PO BID Qty: 60 RF: 0 nitroglycerin [Nitrostat] 0.4 mg Tablet, Sublingual 0.4 mg Sublingual Q5M PRN (Reason: Angina) Qty: 100 RF: 0 sertraline 50 mg Tablet 50 mg PO DAILY RF: 0 cyanocobalamin (vitamin B-12) [Vitamin B-12] 1,000 mcg Tablet 1,000 mcg PO DAILY RF: 0 mirtazapine 15 mg Tablet 15 mg PO HS RF: 0 ergocalciferol (vitamin D2) [Vitamin D2] 50,000 unit Capsule 50,000 unit PO QWEEK RF: 0 Saccharomyces boulardii [Florastor] 250 mg Capsule 250 mg PO DAILY RF: 0 megestrol 400 mg/10 mL (40 mg/mL) Suspension 400 mg PO DAILY RF: 0 ipratropium-albuterol 0.5 mg-3 mg(2.5 mg base)/3 mL Solution For Nebulization 3 ml INHALATION Q8H RF: 0 ondansetron HCl [Zofran] 8 mg Tablet 8 mg PO TID PRN (Reason: Nausea) RF: 0 fluconazole 200 mg Tablet 200 mg PO DAILY RF: 0 hydromorphone 2 mg Tablet 2 mg PO Q6H PRN (Reason: Pain) RF: 0 ciprofloxacin-dexamethasone [Ciprodex] 0.3-0.1 % Drops,Suspension 2 drp OTIC (EAR) BID RF: 0 fluticasone-vilanterol [Breo Ellipta] 200-25 mcg/dose Blister With Device 1 inh INHALATION DAILY RF: 0 ranitidine HCl [Zantac] 150 mg Tablet 150 mg PO DAILY RF: 0 Discontinued methotrexate sodium [Trexall] 5 mg Tablet 15 mg PO QWEEK RF: 0 vedolizumab [Entyvio] 300 mg Recon Soln 300 mg IV Q6W RF: 0 paclitaxel 6 mg/mL Concentrate 5.63 mg/m2/hr IV Q3W RF: 0 carboplatin 10 mg/mL Solution 300 mg/m2 IV Q3W RF: 0 Referrals: Zoe Gonzalez MD [Physician] - See Instructions ( Please call the physician's office to book the appointment to be seen within [1 week].) Josiah Will MD [Primary Care Provider] - See Instructions (DOCTOR'S OFFICE WILL CALL TO SCHEDULE APPT.) Luis Daniel Wolff MD [Physician] - 05/06/18 2:15 pm ( ) Post Discharge Care Plan Care Plan Goals: Discharge Care Plan Goals for Pneumonia You have been diagnosed with pneumonia. This is a serious lung infection. Most cases of pneumonia are caused by bacteria. Pneumonia most often occurs in older adults, young children, and people with chronic health problems. Directions to Meet your Goals: 1. Home care: * Take your medicine exactly as directed. Dont skip doses. Continue taking your antibiotics as until they are all gone, even if you start to feel better. This will prevent the pneumonia from coming back. * Drink at least 8 glasses of water daily, unless directed otherwise. This helps to loosen and thin secretions so that you can cough them up. * Use a cool-mist humidifier in your bedroom. Be sure to clean the humidifier daily. * Dont use medicines to suppress your cough unless your cough is dry, painful, or interferes with your sleep. Coughing up mucus is normal. You may use an expectorant if your doctor says its okay. * You can use warm compresses or a heating pad on the lowest setting to relieve chest discomfort. Use several times a day for 15-20 minutes at a time. To prevent injury to your skin, set the temperature to warm, not hot. Dont put the compress or pad directly on your skin. Make certain it has a cover or wrap it in a towel. This is to prevent skin matias. * Get plenty of rest until your fever, shortness of breath, and chest pain go away. * Plan to get a flu shot every year. The flu is a common cause of pneumonia. Getting a flu shot every year can help prevent both the flu and pneumonia. 2. Getting the pneumococcal vaccine: * Talk with your doctor about getting the pneumococcal vaccine. Pneumococcal pneumonia is caused by bacteria that spread from person to person. It can cause minor problems, such as ear infections. But it can also turn into life- threatening illnesses of the lungs (pneumonia), the covering of the brain and spinal cord (meningitis), and the blood (bacteremia). * Make sure to ask your doctor if you should have the vaccine. Children under 2 years of age, adults over age 65, people with certain health conditions, and smokers are at the highest risk of pneumococcal disease. This vaccine can help prevent pneumococcal disease in both adults and children. 3. Follow-up care: Do Not miss your follow-up appointment. Keep up with all your appointments and yearly check ups 4. When to call your doctor: Call your doctor immediately if you have any of the following: Fever of 100.4F (38C) or higher, or as directed by your healthcare provider Mucus from the lungs (sputum) thats yellow, green, bloody, or smells bad Vomiting Any symptoms that get worse 5. Call 911: Call 911 right away if you have any of the following: Chest pain Trouble breathing Blue lips or fingernails Status ED Status: Left Department
[2018-03-15 13:25] VITALS: RESP 20; TEMP 97.3
[2018-03-15] MEDS: Vancomycin Inj 1,500 MG in Sodium Chlor 0.9% Inj 500 ML IV.SIG SCH (14:23)
[2018-03-15] MEDS: Enoxaparin Inj 30 MG/0.3 ML Syringe SQ SCH (14:23)
[2018-03-15] MEDS ORDERED: Heparin Central Flush 100 UNIT/ML 5 ML Vial IV.FLUSH PRN (16:28)
[2018-03-15 16:33] VITALS: BP 127/80; PULSE 98; O2SAT 95
--- NOTE | 2018-03-15 17:07 | MD ---
cc: Marcella Wolff MD DATE OF DISCHARGE: 03/15/2018 HOSPITAL COURSE: The patient is an 82-year-old white female known to me with advanced pulmonary malignancy followed by Dr. Gonzalez, and underlying COPD. She presented on 03/09/2018 with increasing shortness of breath. A CTA revealed no evidence of thromboembolic disease and a mass in the right chest, which was actually improved compared to previous. She has had chemotherapy and radiation therapy. HOSPITAL COURSE: On admission, she was suspected of being septic. She was hypotensive and had recently completed chemotherapy and radiation. She was placed on broad spectrum antibiotics, cefepime and vancomycin along with corticosteroids aerosolized bronchodilators and oxygen and rehydrated. Hemoglobin was low initially so she received packed red cells and at the time of discharge, her hemoglobin is up to 10.3. Followup chest x-ray on 03/10/2018 revealed persistent changes in the right, clear lungs on the left and there was not significant pleural effusion based on an ultrasound on 03/09/2018. Her cultures of her blood were negative. We were not able to collect sputum cultures. She was subsequently switched to oral prednisone, continued on aerosolized bronchodilators t.i.d. and oxygen and today she is afebrile. Respirations are 16-18, her blood pressure is 150/90, and her O2 saturation is 97% on 2 liters. Neck veins are flat. Her chest is clear, but diminished, particularly on the right. No wheezes or rhonchi. Regular rhythm. No harsh murmur. No edema. She will go home on her Breo nebulized aerosol treatments 2-3 times a day, as well as oxygen and prednisone tapered over 2 weeks. I have asked her to call the office and schedule a followup appointment in about 2 weeks. I spoke to her primary hospitalist about discharge planning. MD BETTE Hardy/yudith/jayson , 01:07 PM , 01:14 PM
[2018-03-17] MEDS ORDERED: Pharmacy Ordered Lab Info OTHER ONE (14:45)
== END 2018-03-15 17:17 | disposition home or self-care (01) ==
LOC: NEPC 11:55 → NEDA 14:20 → HCIN 16:40 → HIMC 17:45 → N05 03-12 17:51
PROVIDERS: ADMIT Family Medicine; ATTEND Family Medicine
DX: Z80.6 Family history of leukemia; K50.90 Crohn's disease, unspecified, without complications; R82.998 Other abnormal findings in urine; D69.6 Thrombocytopenia, unspecified; D63.0 Anemia in neoplastic disease; D64.81 Anemia due to antineoplastic chemotherapy; Z80.0 Family history of malignant neoplasm of digestive organs; H35.30 Unspecified macular degeneration; F32.9 Major depressive disorder, single episode, unspecified; C79.51 Secondary malignant neoplasm of bone; C78.1 Secondary malignant neoplasm of mediastinum; K90.0 Celiac disease; Z94.7 Corneal transplant status; J18.9 Pneumonia, unspecified organism; Z91.018 Allergy to other foods; C34.90 Malignant neoplasm of unspecified part of unspecified bronchus or lung; K57.90 Diverticulosis of intestine, part unspecified, without perforation or abscess without bleeding; T45.1X5A Adverse effect of antineoplastic and immunosuppressive drugs, initial encounter; E86.0 Dehydration; J44.1 Chronic obstructive pulmonary disease with (acute) exacerbation; A41.9 Sepsis, unspecified organism; D89.9 Disorder involving the immune mechanism, unspecified; K21.9 Gastro-esophageal reflux disease without esophagitis; E78.00 Pure hypercholesterolemia, unspecified; Z99.81 Dependence on supplemental oxygen; J44.0 Chronic obstructive pulmonary disease with (acute) lower respiratory infection; Z90.710 Acquired absence of both cervix and uterus; J96.20 Acute and chronic respiratory failure, unspecified whether with hypoxia or hypercapnia; J98.11 Atelectasis; Z88.1 Allergy status to other antibiotic agents; N17.9 Acute kidney failure, unspecified; Z68.37 Body mass index [BMI] 37.0-37.9, adult; M85.80 Other specified disorders of bone density and structure, unspecified site; M19.90 Unspecified osteoarthritis, unspecified site; H40.9 Unspecified glaucoma; D84.9 Immunodeficiency, unspecified; K64.9 Unspecified hemorrhoids; Z87.891 Personal history of nicotine dependence; E11.65 Type 2 diabetes mellitus with hyperglycemia; E66.9 Obesity, unspecified; D50.9 Iron deficiency anemia, unspecified; G89.29 Other chronic pain; Z88.8 Allergy status to other drugs, medicaments and biological substances; J90 Pleural effusion, not elsewhere classified